=== PATIENT | male | born 1940 | race Caucasian/White ===

== ENCOUNTER 2018-09-17 17:56 | Inpatient (IN) | payer OTHER ==
[2018-09-17] MEDS ORDERED: FENTANYL CITR 100 MCG/2 ML ONE ×2 (19:02→21:42)
--- NOTE | 2018-09-17 19:51 | RAD REPORT ---
EXAM DESCRIPTION: CT - Head Brain Wo Cont - 09/17/2018 7:42 pm CLINICAL HISTORY: TRAUMA Fall, trauma, head injury COMPARISON: No comparisons TECHNIQUE: All CT scans are performed using dose optimization technique as appropriate and may inclu de automated exposure control or mA/KV adjustment according to patient size. FINDINGS: No intracranial hemorrhage, hydrocephalus or extra-axial fluid collection.No areas of brai n edema or evidence of midline shift. Mild mucopolypoid thickening of the right maxillary antrum. The paranasal sinuses and mastoids are ot herwise clear. The calvarium is intact. IMPRESSION: No acute intracranial abnormality.
--- NOTE | 2018-09-17 19:52 | RAD REPORT ---
EXAM DESCRIPTION: RAD - Wrist Right 3 View - 09/17/2018 7:41 pm CLINICAL HISTORY: PAIN Pain COMPARISON: No comparisons FINDINGS: Mildly impacted fracture is seen involving the distal radial metaphysis. Mildly comminuted distal ulnar fracture also seen. 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 No carpal dislocation seen.
--- NOTE | 2018-09-17 19:53 | RAD REPORT ---
EXAM DESCRIPTION: RAD - Hip Right 2 View - 09/17/2018 7:41 pm CLINICAL HISTORY: PAIN Fall, pain COMPARISON: No comparisons FINDINGS: Intratrochanteric fracture is seen of the proximal right femur. No dislocation evident. IMPRESSION: Right IT fracture.
--- NOTE | 2018-09-17 19:54 | RAD REPORT ---
EXAM DESCRIPTION: RAD - Knee Right 3 View - 09/17/2018 7:41 pm CLINICAL HISTORY: PAIN Fall, pain COMPARISON: No comparisons FINDINGS: Prominent osteoarthritis involves the medial joint compartment. No acute fracture or dislo cation seen. No suprapatellar joint effusion.
[2018-09-17 20:03] LABS: Absolute Lymphocytes (CBC) 1.1 K/uL (0.7-4.9); Absolute Monocytes 0.9 K/uL (0.1-1.3); Absolute Neutrophil 8.4 K/uL (1.8-8.0); Basophils % 0.4 % (0-1.3); Eosinophils % 0.9 % (0-4.4); Hematocrit 45.8 % (39.6-49.0); Lymphocytes % 10.4 % (15.3-44.8); MPV 8.3 fL (7.6-11.3); Monocytes % 8.3 % (3.3-12.3); RBC Red Blood Cell Count 5.28 M/uL (4.33-5.43)
[2018-09-17 20:20] LABS: Potassium 3.5 mmol/L (3.5-5.1)
--- NOTE | 2018-09-17 20:34 | ER ---
Nurse's Notes [facility] Name: Antonio Valdivia Age: 78 yrs Sex: Male : 1940 Arrival Date: 09/17/2018 Time: 17:57 Bed 4 Private MD: Diagnosis: Displaced intertrochanteric fracture of right femur;Displaced fracture of neck of right radius Presentation: 09/17 17:58 Presenting complaint: EMS states: fell from a standing position approximately 30 ss minutes prior to arrival. Pt c/o R wrist, R knee and R hip pain. Denies head injury. Care prior to arrival: None. Mechanism of Injury: Fall from standing position. Trauma event details: Injury occurred in the [facility], Injury occurred: at home. Injury occurred: September 17, 2018. 17:58 Acuity: ZURI 3 ss 17:58 Method Of Arrival: EMS: [facility] ss 18:00 Transition of care: patient was not received from another setting of care. Onset of ss symptoms was September 17, 2018. Risk Assessment: Do you want to hurt yourself or someone else? Patient reports no desire to harm self or others. Initial Sepsis Screen: Does the patient meet any 2 criteria? No. Patient's initial sepsis screen is negative. Does the patient have a suspected source of infection? No. Patient's initial sepsis screen is negative. Trauma Activation: Alert Physician: ED Physician; Name: ; Notified At: ; Arrived At: Physician: General Surgeon; Name: ; Notified At: ; Arrived At: Physician: Radiology; Name: ; Notified At: ; Arrived At: Physician: Respiratory; Name: ; Notified At: ; Arrived At: Physician: Lab; Name: ; Notified At: ; Arrived At: Historical: - Allergies: 18:02 No Known Allergies; ss - PMHx: 21:22 Hypertension; Atrial Fib; gs - Immunization history: Last tetanus immunization: unknown. - Social history:: Smoking status: Patient/guardian denies using tobacco. - Ebola Screening: : Patient denies exposure to infectious person Patient denies travel to an Ebola-affected area in the 21 days before illness onset. Screenin:58 Abuse screen: Denies threats or abuse. Denies injuries from another. Tuberculosis ss screening: No symptoms or risk factors identified. Never had TB. 18:06 Nutritional screening: No deficits noted. Fall Risk Secondary diagnosis (15 points) tw2 impaired mobility. Primary Survey: 17:58 NO uncontrolled hemorrhage observed. A: The patient is alert. Airway: patent. ss Breathing/Chest: Respiratory pattern: regular, Respiratory effort: spontaneous, unlabored. Circulation: Heart tones present. Pulses: palpable right radial artery, right posterior tibial artery, left radial artery and left posterior tibial artery. Skin color: pink, Skin temperature: warm. Disability Alert. Exposure/Environment: There is no evidence of uncontrolled external bleeding. 18:32 Reassessment Airway Airway Patent Oxygen No O2 Oral cavity Clear Breathing/Chest sv Respiratory pattern Regular Respiratory effort Spontaneous Unlabored Breath sounds Clear Chest inspection Symmetrical Circulation Heart tones Present Pulses Palpable Color Spelter Temperature Dry Cool Disability Alert. Secondary Survey: 18:10 HEENT: No deficits noted. Gastrointestinal: No deficits noted. : No deficits noted. sv No signs and/or symptoms were reported regarding the genitourinary system. Musculoskeletal: Range of motion: limited in right hip Tenderness present in right hip, right wrist and right knee. Assessment: 18:11 General: Appears in no apparent distress. uncomfortable, Behavior is calm, cooperative, sv appropriate for age. Neuro: Level of Consciousness is awake, alert, obeys commands, Oriented to person, place, time, situation. Cardiovascular: Heart tones S1 S2 present Patient's skin is warm and dry. Pulses are palpable in right brachial artery and left brachial artery. Respiratory: Airway is patent Respiratory effort is even, unlabored, Respiratory pattern is regular, symmetrical, Breath sounds are clear bilaterally. Musculoskeletal: Swelling present in right wrist. 19:59 Reassessment: Pt returned from CT. Pain: Complains of pain in right wrist and right hip ed1 Pain currently is 8 out of 10 on a pain scale. Quality of pain is described as aching, throbbing, Pain began 2 hours ago. Is continuous. Neuro: Level of Consciousness is awake, alert, obeys commands, Oriented to person, place, time, situation. Cardiovascular: Denies chest pain, Heart tones S1 S2 present. Respiratory: Airway is patent Respiratory effort is even, unlabored, Respiratory pattern is regular, symmetrical, Breath sounds are clear bilaterally. GI: Patient currently denies nausea. : No signs and/or symptoms were reported regarding the genitourinary system. EENT: No signs and/or symptoms were reported regarding the EENT system. Derm: Skin is intact, is healthy with good turgor, Skin is dry, Skin is normal, Skin temperature is warm. Musculoskeletal: Circulation, motion, and sensation intact. Swelling present in right wrist. 20:45 Reassessment: Patient appears in no apparent distress at this time. Patient and/or ed1 family updated on plan of care and expected duration. Pain level reassessed. Patient is alert, oriented x 3, equal unlabored respirations, skin warm/dry/pink. Patient states feeling better. Patient states symptoms have improved. 21:45 Reassessment: Patient appears in no apparent distress at this time. No changes from ed1 previously documented assessment. Patient and/or family updated on plan of care and expected duration. Pain level reassessed. Patient is alert, oriented x 3, equal unlabored respirations, skin warm/dry/pink. 22:36 Reassessment: Patient appears in no apparent distress at this time. Patient and/or ed1 family updated on plan of care and expected duration. Pain level reassessed. Patient is alert, oriented x 3, equal unlabored respirations, skin warm/dry/pink. Patient states feeling better. Patient states symptoms have improved. Vital Signs: 18:05 BP 139 / 95; Pulse 67; Resp 20; Pulse Ox 100% on R/A; Pain 8/10; tw2 18:09 Temp 97.1(A); sv 18:33 BP 183 / 88; Pulse 62; Resp 16; Temp 97.2; Pulse Ox 99% ; sv 19:59 BP 180 / 86; Pulse 65; Resp 16; Temp 98.0(O); Pulse Ox 99% on R/A; Pain 8/10; ed1 20:45 BP 173 / 69; Pulse 60; Resp 18; Temp 98.2(O); Pulse Ox 99% on R/A; Pain 6/10; ed1 21:45 BP 163 / 81; Pulse 59; Resp 18; Temp 98.5(O); Pulse Ox 100% on R/A; Pain 4/10; ed1 22:36 BP 182 / 98; Pulse 64; Resp 18; Temp 98.0(O); Pulse Ox 99% on R/A; Pain 4/10; ed1 Helen Coma Score: 17:58 Eye Response: spontaneous(4). Verbal Response: oriented(5). Motor Response: obeys ss commands(6). Total: 15. 18:33 Eye Response: spontaneous(4). Verbal Response: oriented(5). Motor Response: obeys sv commands(6). Total: 15. Trauma Score (Adult): 17:58 Eye Response: spontaneous(1); Verbal Response: oriented(1); Motor Response: obeys ss commands(2); Systolic BP: > 89 mm Hg(4); Respiratory Rate: 10 to 29 per min(4); [place] Score: 15; Trauma Score: 12 18:33 Eye Response: spontaneous(1); Verbal Response: oriented(1); Motor Response: obeys sv commands(2); Systolic BP: > 89 mm Hg(4); Respiratory Rate: 10 to 29 per min(4); [place] Score: 15; Trauma Score: 12 19:59 Eye Response: spontaneous(1); Verbal Response: oriented(1); Motor Response: obeys ed1 commands(2); Systolic BP: > 89 mm Hg(4); Respiratory Rate: 10 to 29 per min(4); [place] Score: 15; Trauma Score: 12 20:45 Eye Response: spontaneous(1); Verbal Response: oriented(1); Motor Response: obeys ed1 commands(2); Systolic BP: > 89 mm Hg(4); Respiratory Rate: 10 to 29 per min(4); [place] Score: 15; Trauma Score: 12 21:45 Eye Response: spontaneous(1); Verbal Response: oriented(1); Motor Response: obeys ed1 commands(2); Systolic BP: > 89 mm Hg(4); Respiratory Rate: 10 to 29 per min(4); [place] Score: 15; Trauma Score: 12 22:36 Eye Response: spontaneous(1); Verbal Response: oriented(1); Motor Response: obeys ed1 commands(2); Systolic BP: > 89 mm Hg(4); Respiratory Rate: 10 to 29 per min(4); [place] Score: 15; Trauma Score: 12 ED Course: 17:57 Patient arrived in ED. ss 17:58 Patient has correct armband on for positive identification. Bed in low position. Call ss light in reach. Patient maintains SpO2 saturation greater than 95% on room air. client care specialist on. Pulse ox on. NIBP on. 17:58 Patient maintains SpO2 saturation greater than 95% on room air. ss 17:59 Triage completed. ss 17:59 Blanca Sawyer RN is Primary Nurse. sv 18:02 Arm band placed on right wrist. ss 18:13 Awaiting ED provider evaluation. sv 18:13 Thermoregulation: warm blanket given to patient. sv 18:15 Hi Patel MD is Attending Physician. gs 19:04 Report given to Milagros BARRETT. sv 19:07 Primary Nurse role handed off by Blanca Sawyer RN sv 19:15 Milagros Mendoza RN is Primary Nurse. ed1 19:44 Hip Right 2 View XRAY In Process Unspecified. EDMS 19:44 Wrist Right 3 View XRAY In Process Unspecified. EDMS 19:44 Knee Right 3 View XRAY In Process Unspecified. EDMS 19:44 CT Head Brain wo Cont In Process Unspecified. EDMS 19:54 Inserted saline lock: 20 gauge in left antecubital area, using aseptic technique. ar5 20:32 Krzysztof Rene MD is Hospitalizing Provider. gs 22:38 No provider procedures requiring assistance completed. Patient admitted, IV remains in ed1 place. intact, No redness/swelling at site. Administered Medications: 20:01 Drug: fentaNYL (PF) 50 mcg Route: IVP; Site: left antecubital; ed1 20:30 Follow up: Response: No adverse reaction; Pain is unchanged, physician notified ed1 21:36 Drug: fentaNYL (PF) 50 mcg Route: IVP; Site: left antecubital; ed1 22:00 Follow up: Response: No adverse reaction; Pain is decreased ed1 Intake: 18:13 PO: 0ml; Total: 0ml. sv 19:59 PO: 0ml; Total: 0ml. ed1 20:45 PO: 0ml; Total: 0ml. ed1 21:45 PO: 0ml; Total: 0ml. ed1 22:36 PO: 0ml; Total: 0ml. ed1 Output: 18:13 Urine: 0ml; Total: 0ml. sv 19:59 Urine: 0ml; Total: 0ml. ed1 20:45 Urine: 240ml (Voided); Total: 240ml. ed1 21:45 Urine: 0ml; Total: 240ml. ed1 22:36 Urine: 240ml (Voided); Total: 480ml. ed1 Outcome: 20:34 Decision to Hospitalize by Provider. 23:15 Admitted to Med/surg accompanied by tech, via wheelchair, room 203, Report called to ed1 NENA Barton 23:15 Condition: stable 23:15 Patient's length of stay in the Emergency Department was greater than 2 hours. 23:38 Patient left the ED. ed1 Signatures: Dispatcher [employer] EDBlanca Medina RN RN Jennifer Abad RN RN ss Riggs, Erika, RN RN ed1 Charlotte Silverman RN RN tw2 Hi Patel MD MD gs Robles, Autumn ar5 Corrections: (The following items were deleted from the chart) 18:06 18:05 BP 155 / 117; Pulse 75bpm; Resp 23bpm; Pulse Ox 100% RA; tw2 tw2 22:35 20:45 BP 173 / 69; Pulse 60bpm; Resp 18bpm; Pulse Ox 99% RA; Pain 6/10; ed1 ed1
--- NOTE | 2018-09-17 20:35 | EDPHYS ---
Physician Documentation [facility] Name: Antonio Valdivia Age: 78 yrs Sex: Male : 1940 Arrival Date: 09/17/2018 Time: 17:57 Bed 4 Private MD: ED Physician Hi Patel HPI: 09/17 21:21 This 78 yrs old Male presents to ER via EMS with complaints of Fall Injury. gs 21:21 Details of fall: The patient fell from an upright position. Onset: The symptoms/episode gs began/occurred acutely, just prior to arrival. Associated injuries: The patient sustained injury to the head, contusion, right hip and right knee, right wrist. Severity of symptoms: At their worst the symptoms were moderate, in the emergency department the symptoms are unchanged. The patient has not experienced similar symptoms in the past. The patient has not recently seen a physician. Historical: - Allergies: 18:02 No Known Allergies; ss - PMHx: 21:22 Hypertension; Atrial Fib; gs - Immunization history: Last tetanus immunization: unknown. - Social history:: Smoking status: Patient/guardian denies using tobacco. - Ebola Screening: : Patient denies exposure to infectious person Patient denies travel to an Ebola-affected area in the 21 days before illness onset. ROS: 21:22 All other systems are negative. gs Exam: 21:22 Head/Face: Normocephalic, atraumatic. Eyes: Pupils equal round and reactive to light, gs extra-ocular motions intact. Lids and lashes normal. Conjunctiva and sclera are non-icteric and not injected. Cornea within normal limits. Periorbital areas with no swelling, redness, or edema. ENT: Nares patent. No nasal discharge, no septal abnormalities noted. Tympanic membranes are normal and external auditory canals are clear. Oropharynx with no redness, swelling, or masses, exudates, or evidence of obstruction, uvula midline. Mucous membranes moist. Neck: Trachea midline, no thyromegaly or masses palpated, and no cervical lymphadenopathy. Supple, full range of motion without nuchal rigidity, or vertebral point tenderness. No Meningismus. Chest/axilla: Normal chest wall appearance and motion. Nontender with no deformity. No lesions are appreciated. Cardiovascular: Regular rate and rhythm with a normal S1 and S2. No gallops, murmurs, or rubs. Normal PMI, no JVD. No pulse deficits. Respiratory: Lungs have equal breath sounds bilaterally, clear to auscultation and percussion. No rales, rhonchi or wheezes noted. No increased work of breathing, no retractions or nasal flaring. Abdomen/GI: Soft, non-tender, with normal bowel sounds. No distension or tympany. No guarding or rebound. No evidence of tenderness throughout. Back: No spinal tenderness. No costovertebral tenderness. Full range of motion. Skin: Warm, dry with normal turgor. Normal color with no rashes, no lesions, and no evidence of cellulitis. Neuro: Awake and alert, GCS 15, oriented to person, place, time, and situation. Cranial nerves II-XII grossly intact. Motor strength 5/5 in all extremities. Sensory grossly intact. Cerebellar exam normal. Normal gait. 21:22 Constitutional: The patient appears alert, awake, in obvious distress, severely distressed. 21:22 Musculoskeletal/extremity: Extremities: noted in the right wrist: deformity, pain, swelling, tenderness, noted in the right hip: swelling, tenderness, ROM: limited active range of motion due to pain, limited passive range of motion due to pain, Circulation is intact in all extremities. Sensation intact. Joints: the right hip displays painful range of motion, swelling, tenderness. Vital Signs: 18:05 BP 139 / 95; Pulse 67; Resp 20; Pulse Ox 100% on R/A; Pain 8/10; tw2 18:09 Temp 97.1(A); sv 18:33 BP 183 / 88; Pulse 62; Resp 16; Temp 97.2; Pulse Ox 99% ; sv 19:59 BP 180 / 86; Pulse 65; Resp 16; Temp 98.0(O); Pulse Ox 99% on R/A; Pain 8/10; ed1 20:45 BP 173 / 69; Pulse 60; Resp 18; Temp 98.2(O); Pulse Ox 99% on R/A; Pain 6/10; ed1 21:45 BP 163 / 81; Pulse 59; Resp 18; Temp 98.5(O); Pulse Ox 100% on R/A; Pain 4/10; ed1 22:36 BP 182 / 98; Pulse 64; Resp 18; Temp 98.0(O); Pulse Ox 99% on R/A; Pain 4/10; ed1 [place] Coma Score: 17:58 Eye Response: spontaneous(4). Verbal Response: oriented(5). Motor Response: obeys ss commands(6). Total: 15. 18:33 Eye Response: spontaneous(4). Verbal Response: oriented(5). Motor Response: obeys sv commands(6). Total: 15. Trauma Score (Adult): 17:58 Eye Response: spontaneous(1); Verbal Response: oriented(1); Motor Response: obeys ss commands(2); Systolic BP: > 89 mm Hg(4); Respiratory Rate: 10 to 29 per min(4); [place] Score: 15; Trauma Score: 12 18:33 Eye Response: spontaneous(1); Verbal Response: oriented(1); Motor Response: obeys sv commands(2); Systolic BP: > 89 mm Hg(4); Respiratory Rate: 10 to 29 per min(4); [place] Score: 15; Trauma Score: 12 19:59 Eye Response: spontaneous(1); Verbal Response: oriented(1); Motor Response: obeys ed1 commands(2); Systolic BP: > 89 mm Hg(4); Respiratory Rate: 10 to 29 per min(4); [place] Score: 15; Trauma Score: 12 20:45 Eye Response: spontaneous(1); Verbal Response: oriented(1); Motor Response: obeys ed1 commands(2); Systolic BP: > 89 mm Hg(4); Respiratory Rate: 10 to 29 per min(4); [place] Score: 15; Trauma Score: 12 21:45 Eye Response: spontaneous(1); Verbal Response: oriented(1); Motor Response: obeys ed1 commands(2); Systolic BP: > 89 mm Hg(4); Respiratory Rate: 10 to 29 per min(4); [place] Score: 15; Trauma Score: 12 22:36 Eye Response: spontaneous(1); Verbal Response: oriented(1); Motor Response: obeys ed1 commands(2); Systolic BP: > 89 mm Hg(4); Respiratory Rate: 10 to 29 per min(4); Helen Score: 15; Trauma Score: 12 MDM: 18:35 Patient medically screened. gs 21:22 Differential diagnosis: closed head injury, fracture, multiple trauma, sprain. Data gs reviewed: vital signs, nurses notes, lab test result(s), radiologic studies. Counseling: I had a detailed discussion with the patient and/or guardian regarding: the historical points, exam findings, and any diagnostic results supporting the discharge/admit diagnosis, the need for further work-up and treatment in the hospital. Response to treatment: the patient's symptoms have mildly improved after treatment, and as a result, I will admit patient. 09/17 18:35 Order name: CBC with Diff 09/17 18:35 Order name: Basic Metabolic Panel 09/17 20:32 Order name: PT-INR 09/17 21:34 Order name: Basic Metabolic Panel EDMS 09/17 21:34 Order name: Basic Metabolic Panel EDMS 09/17 21:34 Order name: CBC with Automated Diff EDMS 09/17 18:09 Order name: Hip Right 2 View XRAY; Complete Time: 20:19 sv 09/17 18:09 Order name: Wrist Right 3 View XRAY; Complete Time: 20:19 sv 09/17 18:09 Order name: Knee Right 3 View XRAY; Complete Time: 20:19 sv 09/17 18:35 Order name: CT Head Brain wo Cont; Complete Time: 20:19 gs 09/17 20:32 Order name: XRAY CXR (1 view) 09/17 21:34 Order name: CBC with Automated Diff EDMS 09/17 20:22 Order name: Splint - Volar Wrist Splint: R WRIST; Complete Time: 22:16 09/17 20:32 Order name: EKG - Nurse/Tech; Complete Time: 21:34 09/17 21:34 Order name: CONS Physician Consult EDMD 09/17 21:34 Order name: NPO EDMD Administered Medications: 20:01 Drug: fentaNYL (PF) 50 mcg Route: IVP; Site: left antecubital; ed1 20:30 Follow up: Response: No adverse reaction; Pain is unchanged, physician notified ed1 21:36 Drug: fentaNYL (PF) 50 mcg Route: IVP; Site: left antecubital; ed1 22:00 Follow up: Response: No adverse reaction; Pain is decreased ed1 Disposition: 09/17/18 20:34 Hospitalization ordered by Krzysztof Rene for Inpatient Admission. Preliminary diagnosis are Displaced intertrochanteric fracture of right femur, Displaced fracture of neck of right radius. - Bed requested for Telemetry/MedSurg (Inpatient). - Status is Inpatient Admission. ed1 - Condition is Stable. - Problem is new. - Symptoms have improved. UTI on Admission? No Signatures: Dispatcher [employer] EDMD Nova Lackey RN RN Maria Alejandra Su RN RN [facility] BransonJennifer RN RN Milagros Mendoza RN RN ed1 Hi Patel MD MD Corrections: (The following items were deleted from the chart) 20:38 20:34 Hospitalization Ordered by Krzysztof Rene MD for Inpatient Admission. Preliminary fc diagnosis is Displaced intertrochanteric fracture of right femur; Displaced fracture of neck of right radius. Bed requested for Telemetry/MedSurg (Inpatient). Status is Inpatient Admission. Condition is Stable. Problem is new. Symptoms have improved. UTI on Admission? No. 20:44 20:38 09/17/2018 20:34 Hospitalization Ordered by Krzysztof Rene MD for Inpatient fc Admission. Preliminary diagnosis is Displaced intertrochanteric fracture of right femur; Displaced fracture of neck of right radius. Bed requested for Telemetry/MedSurg (Inpatient). Status is Inpatient Admission. Condition is Stable. Problem is new. Symptoms have improved. UTI on Admission? No. 21:47 20:44 09/17/2018 20:34 Hospitalization Ordered by Krzysztof Reen MD for Inpatient mw Admission. Preliminary diagnosis is Displaced intertrochanteric fracture of right femur; Displaced fracture of neck of right radius. Bed requested for Telemetry/MedSurg (Inpatient). Status is Inpatient Admission. Condition is Stable. Problem is new. Symptoms have improved. UTI on Admission? No. 23:38 21:47 09/17/2018 20:34 Hospitalization Ordered by Krzysztof Rene MD for Inpatient ed1 Admission. Preliminary diagnosis is Displaced intertrochanteric fracture of right femur; Displaced fracture of neck of right radius. Bed requested for Telemetry/MedSurg (Inpatient). Status is Inpatient Admission. Condition is Stable. Problem is new. Symptoms have improved. UTI on Admission? No. mw
[2018-09-17] MEDS ORDERED: ONDANSETRON 4 MG/2 ML VIAL IV PRN (21:30)
[2018-09-17] MEDS ORDERED: ACETAMINOPHEN 500 MG TAB PO PRN (21:30)
[2018-09-17 21:45] LABS: Protime INR 1.26
--- NOTE | 2018-09-17 22:01 | P.HP ---
Certification for Inpatient Patient admitted to: Inpatient With expected LOS: >2 Midnights Practitioner: I am a practitioner with admitting privileges, knowledge of patient current condition, hospital course, and medical plan of care. Services: Services provided to patient in accordance with Admission requirements found in Title 42 Section 412.3 of the Code of Federal Regulations Patient History Date of Service: 09/17/18 Reason for admission: right hip and right wrist fracture History of Present Illness: Mr Valdivia is an 78 years old male with history of HTN, Dyslipidemia, chronic A.Fib, recently started on xarelto, who unfortunately fell this afternoon, landing ton his right side. Immediately, he was unable to bear weight on his right leg, he also has severe pain not only in his right hip but his right arm. He stated that tripped. The patient denied dizziness, palpitation or chest pain prior the fall. XR right hip shows intertrochanteric fracture, XR right wrist reports radial and ulnar fracture. Home medications list reviewed: Yes - Past Medical/Surgical History -: HTN -: dyslipidemia Past Surgical History: Reviewed- Non-Contributory - Family History Family History: Reviewed- Non-Contributory - Social History Smoking Status: Former smoker CD- Drugs: No Place of Residence: Home Review of Systems 10-point ROS is otherwise unremarkable Physical Examination - Physical Exam General: Alert, In no apparent distress HEENT: Atraumatic, PERRLA, Mucous membr. moist/pink, EOMI, Sclerae nonicteric Neck: Supple, 2+ carotid pulse no bruit, No LAD, Without JVD or thyroid abnormality Respiratory: Clear to auscultation bilaterally, Normal air movement Cardiovascular: Normal S1 S2, Irregular heart rate/rhythm Gastrointestinal: Normal bowel sounds, No tenderness Musculoskeletal: Tenderness (right hip and right wrist pain) Integumentary: No rashes Neurological: Normal speech, Normal strength at 5/5 x4 extr, Normal tone, Normal affect Lymphatics: No axilla or inguinal lymphadenopathy - Studies Laboratory Data (last 24 hrs) 09/17/18 21:22: PT 14.7 H, INR 1.26 09/17/18 19:54: Sodium 141, Potassium 3.5, BUN 17, Creatinine 1.02, Glucose 110 H 09/17/18 19:54: WBC 10.6, Hgb 15.4, Hct 45.8, Plt Count 168 Assessment and Plan - Problems (Diagnosis) (1) Closed right hip fracture Current Visit: Yes Status: Acute Qualifiers: Encounter type: initial encounter Qualified Code(s): S72.001A - Fracture of unspecified part of neck of right femur, initial encounter for closed fracture (2) Right wrist fracture Current Visit: Yes Status: Acute Qualifiers: Encounter type: initial encounter Fracture type: closed Qualified Code(s) : S62.101A - Fracture of unspecified carpal bone, right wrist, initial encounter for closed fracture (3) HTN (hypertension) Current Visit: Yes Status: Acute Qualifiers: Hypertension type: essential hypertension Qualified Code(s): I10 - Essential (primary) hypertension (4) Chronic a-fib Current Visit: Yes Status: Acute (5) Dyslipidemia Current Visit: Yes Status: Acute - Plan Will admit the patient due to right hip and wrist fracture. Will hold anticoagulation. Dr Carter consulted. Continue symptomatic medication. - Advance Directives Does patient have a Living Will: No Does patient have a Durable POA for Healthcare: No - Code Status/Comfort Care Code Status Assessed: Yes Code Status: Full Code
[2018-09-18 02:04] LABS: Urine Appearance CLEAR; Urine Bilirubin NEGATIVE (NEG); Urine Blood NEGATIVE (NEG); Urine Color YELLOW; Urine Glucose NEGATIVE (NEG); Urine Protein NEGATIVE (NEG); Urine Specific Gravity 1.015 (1.005-1.030)
[2018-09-18 02:16] LABS: Urine Microscopic Reflex NO UMIC
[2018-09-18] MEDS ORDERED: PNEUMOCOCCAL VACCINE 0.5 ML IMVAC ONE (06:00)
[2018-09-18 06:14] LABS: Absolute Lymphocytes (CBC) 0.8 K/uL (0.7-4.9); Absolute Monocytes 0.9 K/uL (0.1-1.3); Absolute Neutrophil 7.6 K/uL (1.8-8.0); Basophils % 0.4 % (0-1.3); Eosinophils % 0.1 % (0-4.4); Hematocrit 40.7 % (39.6-49.0); Lymphocytes % 8.2 % (15.3-44.8); MPV 8.9 fL (7.6-11.3); Monocytes % 9.9 % (3.3-12.3); RBC Red Blood Cell Count 4.74 M/uL (4.33-5.43)
[2018-09-18 06:25] LABS: BUN Blood Urea Nitrogen 14 mg/dL (7-18); Bicarbonate 24 mmol/L (21-32); Glucose Level 134 mg/dL (74-106); Magnesium 1.8 mg/dL (1.8-2.4); Sodium Level 140 mmol/L (136-145)
[2018-09-18] MEDS ORDERED: MAGNESIUM SULFATE 1 gm IVPB 1 GM/100 ML BAG IV ONE (07:00)
[2018-09-18] MEDS: NA CHLORIDE 0.9% 1,000 ML IV SCH ×4 (08:00→17:50)
--- NOTE | 2018-09-18 08:09 | RAD REPORT ---
EXAM DESCRIPTION: RAD - Chest Single View - 09/17/2018 10:31 pm CLINICAL HISTORY: PREOP Chest pain. COMPARISON: CHEST SINGLE VIEW dated 01/30/2010; CHEST PA AND LAT 2 VIEW dated 05/29/2008; CHEST PA AND LAT 2 VIEW dated 02/22/2000 FINDINGS: Portable technique limits examination quality. Emphysematous changes are present throughout the lungs. No focal infiltrate seen. The heart is mildly enlarged in size. No displaced fractures. IMPRESSION: COPD.
--- NOTE | 2018-09-18 08:48 | EKG ---
Test Date: 2018-09-17 Test Time: 21:21:13 Rotary Soil Stabilizer: SHELIA MEASUREMENT RESULTS: Intervals: Rate: 49 W[place]: 150 QRSD: 182 QT: 506 QTc: 457 [place]: P: 44 W[place]: 150 QRS: 63 T: 109 INTERPRETIVE STATEMENTS: Sinus bradycardia Left bundle branch block Abnormal ECG Compared to ECG 01/30/2010 16:25:58 Left bundle-branch block now present Electronically Signed On 09-18-18 08:46:04 COMMUNITY HEALTH COORDINATOR by Manjinder Chadwick
--- NOTE | 2018-09-18 09:26 | P.PN ---
Subjective Date of Service: 09/18/18 Primary Care Provider: Dr. Stern; Cardiology-Dr. Chadwick Chief Complaint: right hip and right wrist fracture Subjective: Other (Patient doing well. Pain well controlled.) Physical Examination - Vital Signs Temperature: 98.3 F Blood Pressure: 138/78 Pulse: 62 Respirations: 18 Pulse Ox (%): 93 - Physical Exam General: Alert, In no apparent distress, Oriented x3, Cooperative HEENT: Atraumatic Neck: Supple Respiratory: Clear to auscultation bilaterally, Normal air movement Cardiovascular: Irregular heart rate/rhythm (Atrial fibrillation, rate controlled) Gastrointestinal: Normal bowel sounds, Soft and benign, Non-distended, No tenderness, No masses, No rebound, No guarding Musculoskeletal: Other (Splint to the right upper extremity.) Integumentary: No tenderness/swelling, No erythema, No warmth, No cyanosis Neurological: Normal speech, Normal strength at 5/5 x4 extr, Normal tone, Normal affect - Studies Laboratory Data (last 24 hrs) 09/17/18 21:22: PT 14.7 H, INR 1.26 09/17/18 19:54: Sodium 141, Potassium 3.5, BUN 17, Creatinine 1.02, Glucose 110 H 09/17/18 19:54: WBC 10.6, Hgb 15.4, Hct 45.8, Plt Count 168 Medications List Reviewed: Yes Assessment & Plan Discharge Plan: Home Plan to discharge in: Greater than 2 days Physician Review Additional Text: Impression: Mechanical fall leading to right intertrochanteric proximal hip fracture along with right impacted fracture involving the distal radial metaphysis and mild comminuted distal ulnar fracture Chronic atrial fibrillation on chronic anti coalition therapy Hypertension Hyperlipidemia Plan: Mechanical fall leading to right intertrochanteric proximal hip fracture along with right impacted fracture involving the distal radial metaphysis and mild comminuted distal ulnar fracture: Orthopedics has been consulted. Cardiology consulted for cardiac clearance. Patient with history of hypertension and chronic atrial fibrillation. Last Xarelto taken at 5:00 p.m. on Monday. Patient likely low risk for surgery. Anticipate surgery today. Patient remains NPO. Anticipate a good recovery after surgery. Patient will likely require outpatient physical therapy at discharge. Chronic atrial fibrillation on chronic anti coagulation therapy: Xarelto last taken at 5:00 p.m. on Monday. Continue to hold anti coagulation therapy in preparation for surgery. Xarelto will need to be restarted after surgery. Hypertension: Will provide medication IV. Once able to take oral intake then can restart home medication. Hyperlipidemia: Once able to take oral intake then can restart Time Spent Managing Pts Care (In Minutes): 55
[2018-09-18] MEDS: MORPHINE 2 MG/ML SYR IV PRN (09:29)
--- NOTE | 2018-09-18 10:40 | ECHO ---
HEIGHT: 5 ft 11 in WEIGHT: 170 lb 0 oz DATE OF STUDY: 09/18/[address]: Kian Villa DO 2-DIMENSIONAL: YES M.MODE: YES DOPPLER: YES COLOR FLOW: YES TDS: NO PORTABLE: NO DEFINITY: NO BUBBLE STUDY: NO DIAGNOSIS: CHRONIC ATRIAL FIBRILLATION CARDIAC HISTORY: CATHERIZATION: NO SURGERY: NO PROSTHETIC VALVE: NO PACEMAKER: NO MEASUREMENTS (cm) DIASTOLIC (NORMALS) SYSTOLIC (NORMALS) IVSd 1.2 (0.6-1.2) LA Diam 4.5 (1.9-4.0) LVEF 67% LVIDd 4.1 (3.5-5.7) LVIDs 2.6 (2.0-3.5) %FS 36% LVPWd 1.3 (0.6-1.2) Ao Diam 3.3 (2.0-3.7) 2 DIMENSIONAL ASSESSMENT: RIGHT ATRIUM: NORMAL LEFT ATRIUM: DILATED RIGHT VENTRICLE: NORMAL LEFT VENTRICLE: NORMAL TRICUSPID VALVE: NORMAL MITRAL VALVE: MITRAL ANNULAR CALCIFICATION PULMONIC VALVE: NORMAL AORTIC VALVE: SCLEROSIS PERICARDIAL EFFUSION: NONE AORTIC ROOT: NORMAL LEFT VENTRICULAR WALL MOTION: NORMAL. DOPPLER/COLOR FLOW: MILD TRICUSPID REGURGITATION- MILD PULMONARY HYPERTENSION. COMMENTS: NORMAL LEFT VENTRICULAR SIZE AND FUNCTION- EJECTION FRACTION 67%. ATRIAL FIBRILLATION. LEFT ATRIUM ENLARGEMENT- NO THROMBUS. MITRAL ANNULAR CALCIFICATION. AORTIC SCLEROSIS. MILD PULMONARY HYPERTENSION. RIGHT VENTRICULAR SYSTOLIC PRESSURE 43 MMHG. TECHNOLOGIST: EMMIE CACERES RD
[2018-09-18] MEDS ORDERED: Ringers Lactate 1,000 ML IV ONE (11:23)
[2018-09-18] MEDS ORDERED: PROPOFOL 200 MG/20 ML VIAL IV ONE (11:58)
[2018-09-18] MEDS ORDERED: FENTANYL CITR 100 MCG/2 ML ONE ×2 (11:59→13:32)
[2018-09-18] MEDS ORDERED: LIDOCAINE 1% MPF 5 ML VIAL ONE (11:59)
[2018-09-18] MEDS: BUPIVACA 0.5%/EPI 0.0005%/PF 10 ML VIAL ONE ×5 (12:28→14:00)
[2018-09-18] MEDS ORDERED: CEFAZOLIN SODIUM 1 GM/VIAL ONE (12:41)
[2018-09-18] MEDS ORDERED: TRANEXAMIC ACID 1,000 MG in NA CHLORIDE 0.9% 50 ML IV ONE (13:00)
[2018-09-18] MEDS ORDERED: NS 0.9% VIAL 10 ML ONE (13:52)
[2018-09-18] MEDS ORDERED: EPHEDRINE SULF 50 MG/ML VIAL ONE (13:52)
[2018-09-18] MEDS ORDERED: KETOROLAC 30 MG/ML INJ ONE (14:17)
[2018-09-18] MEDS ORDERED: ONDANSETRON 4 MG/2 ML VIAL ONE (14:17)
--- NOTE | 2018-09-18 14:47 | RAD REPORT ---
EXAM DESCRIPTION: RAD - Wrist Right 2 View - 09/18/2018 2:34 pm CLINICAL HISTORY: CLOSED REDUCTION IN OR 5 Pain COMPARISON: Wrist Right 3 View dated 09/17/2018 FINDINGS: Fluoroscopic imaging close reduction of right wrist fracture is submitted. Details of the procedure not available. Total fluoro time 0.1 minutes.
--- NOTE | 2018-09-18 14:48 | RAD REPORT ---
EXAM DESCRIPTION: RAD - Hip In Or - 09/18/2018 2:34 pm CLINICAL HISTORY: RT IM NAIL IN OR 5 COMPARISON: No comparisons FINDINGS: Fluoroscopic imaging reduction of the right hip fracture is submitted. Details of the proc edure not available. Total fluoro time 1.2 minutes.
--- NOTE | 2018-09-18 14:58 | P.OP ---
Pug Mill Operator: Corine Soto (gave necessary 1st assist services throughout case) Preoperative diagnosis: Intertrochanteric fracture right hip; Fracture right distal radius & ulna Postoperative diagnosis: same Primary procedure: IM nail fixation R hip intertroch fx;Closed red.long arm cast R wrist Anesthesia: general Estimated blood loss: 75 mL Specimen: none Implants: Affixus [id number];Lag10.5x105;AR80mm;distal 5.0x36mm Fluids & blood products: 20 mL 0.5% Marcaine w/EPI Transferred to: Recovery Room Condition: Good
[2018-09-18] MEDS ORDERED: DOCUSATE NA 100 MG CAP PO PRN (15:22)
[2018-09-18] MEDS ORDERED: MAGNESIUM HYDROXIDE 8% 30 ML PO PRN (15:22)
[2018-09-18] MEDS ORDERED: RIVAROXABAN 10 MG TABLET PO SCH (15:45)
[2018-09-18] MEDS: CEFAZOLIN/SWI 1gm 1 GM/10 ML SYR IVP SCH ×2 (17:52→23:59)
--- NOTE | 2018-09-18 22:25 | CON ---
Date of Consultation: 09/18/2018 Reason For Consultation: Cardiac clearance for hip surgery. History Of Present Illness: Mr. Valdivia is an 78-year-old white male. He has a history of chronic at rial fibrillation and hypertension. He takes Bystolic and Xarelto. He also takes Crestor for dyslip idemia. No other cardiac history. No history of CAD or CABG or congestive heart failure. Came in w ith a hip fracture after a fall. Plan for surgery today as soon by Dr. Carter. Xarelto has been hel d. He took his last dose on Monday. An echocardiogram, which was done today showed mild pulmonary h ypertension with a normal ejection fraction and no thrombus. The patient denied any cardiac symptoms . He denied any syncope. Past Medical History: As stated above. Allergies: NONE. Review of Systems: Negative. Social History: Negative. Family History: Negative. Medications: Listed earlier. Physical Examination: Vital Signs: Stable. He was in atrial fibrillation with a rate in the 80s. Afebrile. HEENT: Negative. Neck: Supple without any bruit, lymphadenopathy, JVD, or thyromegaly. Chest: Clear to auscultation and percussion. Cardiac: Revealed atrial fibrillation, tricuspid regurgitation, murmurs. No gallops or rubs. Abdomen: Benign. Extremities: Revealed no clubbing, cyanosis, or edema. Neurologic: He was intact. Pulses were present distally bilaterally. Diagnostic Data: Except for the hip fracture were pretty normal. His atrial fibrillation is chronic . Impression And Plan: 1.The patient with chronic atrial fibrillation, rate in the 80s, asymptomatic. No other cardiac his tory. Echocardiogram showed normal EF, mild pulmonary hypertension. He has been off Xarelto since S . He is cleared for surgery from my standpoint, and I will be available for questions if the ne ed arises. 2.Hypertension, well controlled. 3.Dyslipidemia, well controlled. NB/MODL Voice ID: [id number] Report ID: [id number]
[2018-09-19] MEDS: NA CHLORIDE 0.9% 1,000 ML IV SCH (05:42)
[2018-09-19 05:55] LABS: Absolute Lymphocytes (CBC) 0.8 K/uL (0.7-4.9); Absolute Neutrophil 6.9 K/uL (1.8-8.0); Basophils % 0.5 % (0-1.3); Hematocrit 38.5 % (39.6-49.0); Lymphocytes % 9.5 % (15.3-44.8); MPV 8.6 fL (7.6-11.3); Monocytes % 11.4 % (3.3-12.3); RBC Red Blood Cell Count 4.47 M/uL (4.33-5.43)
[2018-09-19 06:11] LABS: BUN Blood Urea Nitrogen 14 mg/dL (7-18); Bicarbonate 23 mmol/L (21-32); Glucose Level 113 mg/dL (74-106); Magnesium 2.1 mg/dL (1.8-2.4); Potassium 4.4 mmol/L (3.5-5.1); Sodium Level 141 mmol/L (136-145)
[2018-09-19] MEDS ORDERED: TRAMADOL HCL 50 MG TAB PO PRN (07:51)
[2018-09-19] MEDS: ROSUVASTATIN 10 MG TAB PO SCH (08:33)
[2018-09-19] MEDS: NEBIVOLOL HCL 20 MG TABLET PO SCH (08:34)
[2018-09-19] MEDS: HYDROCODONE/APAP 7.5/325 MG TAB PO PRN ×2 (08:34→16:48)
[2018-09-19] MEDS: ASCORBIC ACID 500 MG TABLET PO SCH (08:34)
[2018-09-19] MEDS ORDERED: RIVAROXABAN 20 MG TABLET PO SCH (09:00)
[2018-09-19] MEDS: MORPHINE 2 MG/ML SYR IV PRN (12:07)
--- NOTE | 2018-09-19 16:01 | P.PN ---
Subjective Date of Service: 09/19/18 Primary Care Provider: Dr. Stern; Cardiology-Dr. Chadwick Chief Complaint: right hip and right wrist fracture Subjective: Improving, Doing well Physical Examination - Vital Signs Temperature: 97.7 F Blood Pressure: 143/66 Pulse: 60 Respirations: 14 Pulse Ox (%): 95 - Physical Exam General: Alert, In no apparent distress, Oriented x3, Cooperative HEENT: Atraumatic Neck: Supple Respiratory: Clear to auscultation bilaterally, Normal air movement Cardiovascular: Irregular heart rate/rhythm (Atrial fibrillation, rate controlled) Gastrointestinal: Normal bowel sounds, Soft and benign, Non-distended, No tenderness, No masses, No rebound, No guarding Integumentary: Other (Right upper extremity in cast.) Neurological: Normal speech, Normal strength at 5/5 x4 extr, Normal tone, Normal affect - Studies Medications List Reviewed: Yes Assessment & Plan Discharge Plan: Home Plan to discharge in: 48 Hours Physician Review Additional Text: Impression: Mechanical fall leading to right intertrochanteric proximal hip fracture along with right impacted fracture involving the distal radial metaphysis and mild comminuted distal ulnar fracture Chronic atrial fibrillation on chronic anti coalition therapy Hypertension Hyperlipidemia Plan: Mechanical fall leading to right intertrochanteric proximal hip fracture along with right impacted fracture involving the distal radial metaphysis and mild comminuted distal ulnar fracture status post repair of hip fracture and cast to the right upper extremity: Patient has done well postoperatively. Will restart his Xarelto. Physical therapy to be initiated. Continue with incentive spirometer. Will provide options for pain control. Anticipate discharge in the next 1-2 days with likely improvement. Patient will likely require outpatient physical therapy at discharge. Chronic atrial fibrillation on chronic anti coagulation therapy: Restart home medication. Hypertension: Restart home medication Hyperlipidemia: Restart home medication Time Spent Managing Pts Care (In Minutes): 55
[2018-09-19] MEDS: RIVAROXABAN 20 MG TABLET PO SCH (16:48)
[2018-09-20 06:26] LABS: Absolute Neutrophil 5.9 K/uL (1.8-8.0); Basophils % 0.6 % (0-1.3); Eosinophils % 3.1 % (0-4.4); Lymphocytes % 12.3 % (15.3-44.8); MPV 8.6 fL (7.6-11.3); Monocytes % 12.6 % (3.3-12.3); RBC Red Blood Cell Count 4.21 M/uL (4.33-5.43)
[2018-09-20 06:30] LABS: BUN Blood Urea Nitrogen 18 mg/dL (7-18); Bicarbonate 27 mmol/L (21-32); Glucose Level 104 mg/dL (74-106); Magnesium 2.2 mg/dL (1.8-2.4); Potassium 4.3 mmol/L (3.5-5.1); Sodium Level 140 mmol/L (136-145)
--- NOTE | 2018-09-20 07:19 | P.PN ---
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 The long arm cast is elevated on pillows in finger range of motion is good. O: Vital signs and hemoglobin are stable. The right hip and ridge is clean dry and intact. Neurovascular exam is intact for right lower extremity and right upper extremities. Physical therapy effort was pending, but review of later Notes showed patient was able to do 60 feet with a walker. A: Patient is making excellent progress for the first postoperative day. P: Continue mobilization as tolerated. Discussed transition to outpatient care with Dr Villa.
[2018-09-20] MEDS ORDERED: ZOLPIDEM TARTRATE 5 MG TABLET PO PRN (07:51)
[2018-09-20] MEDS ORDERED: LACTULOSE 20 GM/30 ML UCUP PO PRN (07:54)
[2018-09-20] MEDS: DOCUSATE NA 100 MG CAP PO SCH (09:09)
[2018-09-20] MEDS: ASCORBIC ACID 500 MG TABLET PO SCH (09:16)
[2018-09-20] MEDS: NEBIVOLOL HCL 20 MG TABLET PO SCH (09:16)
--- NOTE | 2018-09-20 11:43 | P.PN ---
Subjective Date of Service: 09/20/18 Primary Care Provider: Dr. Stern; Cardiology-Dr. Chadwick Chief Complaint: right hip and right wrist fracture Subjective: Improving (Patient is slowly improving. Patient desires inpatient rehab.) Physical Examination - Vital Signs Temperature: 98.6 F Blood Pressure: 163/67 Pulse: 61 Respirations: 14 Pulse Ox (%): 97 - Physical Exam General: Alert, In no apparent distress, Oriented x3, Cooperative HEENT: Atraumatic Neck: Supple Respiratory: Clear to auscultation bilaterally, Normal air movement Cardiovascular: Irregular heart rate/rhythm (Atrial fibrillation, rate controlled) Gastrointestinal: Normal bowel sounds, Soft and benign, Non-distended, No tenderness, No masses, No rebound, No guarding Musculoskeletal: No erythema, No tenderness, No warmth Integumentary: No tenderness/swelling, No erythema, No warmth, No cyanosis Neurological: Normal speech, Normal strength at 5/5 x4 extr, Normal tone, Normal affect - Studies Medications List Reviewed: Yes Assessment & Plan Discharge Plan: Other (Inpatient rehab) Plan to discharge in: 24 Hours Physician Review Additional Text: Impression: Mechanical fall leading to right intertrochanteric proximal hip fracture along with right impacted fracture involving the distal radial metaphysis and mild comminuted distal ulnar fracture Chronic atrial fibrillation on chronic anti coalition therapy Hypertension Hyperlipidemia Plan: Mechanical fall leading to right intertrochanteric proximal hip fracture along with right impacted fracture involving the distal radial metaphysis and mild comminuted distal ulnar fracture status post repair of hip fracture and cast to the right upper extremity: Patient doing well post operatively. Patient now on his normal routine medication. Patient currently being evaluated for inpatient rehab instead of outpatient physical therapy. Await acceptance. Patient may go to inpatient rehab as early as today if accepted. Continue with incentive spirometer. Continue with pain medication as needed. Chronic atrial fibrillation on chronic anti coagulation therapy: Continue home medication. Hypertension: Continue home medication Hyperlipidemia: Continue home medication Time Spent Managing Pts Care (In Minutes): 55
[2018-09-20] MEDS: HYDROCODONE/APAP 7.5/325 MG TAB PO PRN ×3 (11:52→21:22)
[2018-09-20] MEDS: RIVAROXABAN 20 MG TABLET PO SCH (16:52)
--- NOTE | 2018-09-20 17:17 | P.PN ---
Date of Service: 09/20/18 (POD#2) S: PATIENT SITTING IN BEDSIDE CHAIR. The long arm cast is elevated on pillows and finger range of motion is good. O: Vital signs and hemoglobin(12.6) are stable. The right hip bandage is clean dry and intact. Neurovascular exam is intact for right lower extremity and right upper extremity. Physical therapy efforts pendingeach produced 120' with RW. A: Patient is making good progress for the first postoperative day. P: Continue mobilization as tolerated. Patient and agree she cannot manage his care alone. being considered for 5th floor rehabilitation stay.
[2018-09-20] MEDS ORDERED: DOCUSATE NA/SENNA CONC 1 TAB PO SCH (21:00)
[2018-09-21 05:57] LABS: Absolute Lymphocytes (CBC) 1.1 K/uL (0.7-4.9); Absolute Monocytes 0.9 K/uL (0.1-1.3); Absolute Neutrophil 4.4 K/uL (1.8-8.0); Basophils % 0.6 % (0-1.3); Eosinophils % 5.2 % (0-4.4); Hematocrit 33.5 % (39.6-49.0); Lymphocytes % 16.6 % (15.3-44.8); MPV 8.8 fL (7.6-11.3); Monocytes % 13.3 % (3.3-12.3); RBC Red Blood Cell Count 3.88 M/uL (4.33-5.43)
[2018-09-21 06:02] LABS: BUN Blood Urea Nitrogen 21 mg/dL (7-18); Bicarbonate 28 mmol/L (21-32); Glucose Level 90 mg/dL (74-106); Magnesium 2.2 mg/dL (1.8-2.4); Potassium 4.3 mmol/L (3.5-5.1); Sodium Level 138 mmol/L (136-145)
[2018-09-21] MEDS: HYDROCODONE/APAP 7.5/325 MG TAB PO PRN ×2 (09:06→13:45)
[2018-09-21] MEDS: NEBIVOLOL HCL 20 MG TABLET PO SCH (09:07)
[2018-09-21] MEDS: ROSUVASTATIN 10 MG TAB PO SCH (09:07)
[2018-09-21] MEDS: DOCUSATE NA 100 MG CAP PO SCH (09:07)
[2018-09-21] MEDS: ASCORBIC ACID 500 MG TABLET PO SCH (09:16)
--- NOTE | 2018-09-21 16:10 | P.PN ---
Subjective Date of Service: 09/21/18 Primary Care Provider: Dr. Stern; Cardiology-Dr. Chadwick Chief Complaint: right hip and right wrist fracture Subjective: Improving Physical Examination - Vital Signs Temperature: 97.9 F Blood Pressure: 122/72 Pulse: 63 Respirations: 18 Pulse Ox (%): 98 - Physical Exam General: Alert, In no apparent distress, Oriented x3, Cooperative HEENT: Atraumatic Neck: Supple Respiratory: Clear to auscultation bilaterally, Normal air movement Cardiovascular: Irregular heart rate/rhythm (Atrial fibrillation, rate controlled) Gastrointestinal: Normal bowel sounds, Soft and benign, Non-distended, No tenderness, No masses, No rebound, No guarding Musculoskeletal: No erythema, No tenderness, No warmth Integumentary: No tenderness/swelling, No erythema, No warmth, No cyanosis Neurological: Normal speech, Normal strength at 5/5 x4 extr, Normal tone - Studies Medications List Reviewed: Yes Assessment & Plan Discharge Plan: Other (Inpatient rehab) Plan to discharge in: 24 Hours Physician Review Additional Text: Impression: Mechanical fall leading to right intertrochanteric proximal hip fracture along with right impacted fracture involving the distal radial metaphysis and mild comminuted distal ulnar fracture Chronic atrial fibrillation on chronic anti coalition therapy Hypertension Hyperlipidemia Plan: Mechanical fall leading to right intertrochanteric proximal hip fracture along with right impacted fracture involving the distal radial metaphysis and mild comminuted distal ulnar fracture status post repair of hip fracture and cast to the right upper extremity: Patient doing well post operatively. Patient continues to improve with physical therapy. I will recommend inpatient rehab. Will speak to medical billing representative with insurance to approve this. Otherwise patient may be required by insurance to go to skilled facility versus home. Case discussed at length with patient. Chronic atrial fibrillation on chronic anti coagulation therapy: Continue home medication. Hypertension: Continue home medication Hyperlipidemia: Continue home medication Time Spent Managing Pts Care (In Minutes): 55
[2018-09-21] MEDS: RIVAROXABAN 20 MG TABLET PO SCH (17:39)
--- NOTE | 2018-09-21 18:07 | P.DS ---
Admission Date: 09/17/18 Discharge Date: 09/21/18 Primary Care Provider: Dr. Stern; Cardiology-Dr. Chadwick Disposition: TRANSFER TO INPATIENT REHAB Discharge Condition: GOOD Reason for Admission: right hip and right wrist fracture Consultations: Cardiology-Dr. Bean Orthopedics-Dr. Carter Procedures: ECHO: EF 67% LEFT VENTRICULAR WALL MOTION: NORMAL. DOPPLER/COLOR FLOW: MILD TRICUSPID REGURGITATION- MILD PULMONARY HYPERTENSION. COMMENTS: NORMAL LEFT VENTRICULAR SIZE AND FUNCTION- EJECTION FRACTION 67% . ATRIAL FIBRILLATION. LEFT ATRIUM ENLARGEMENT- NO THROMBUS. MITRAL ANNULAR CALCIFICATION. AORTIC SCLEROSIS. MILD PULMONARY HYPERTENSION. RIGHT VENTRICULAR SYSTOLIC PRESSURE 43 MMHG. Medical problem list: Mechanical fall leading to right intertrochanteric proximal hip fracture along with right impacted fracture involving the distal radial metaphysis and mild comminuted distal ulnar fracture Chronic atrial fibrillation on chronic anti coalition therapy Hypertension Hyperlipidemia Brief History of Present Illness: 78-year-old male presented to emergency room with a mechanical fall. Patient suffered right ulnar/radial fracture and right hip fracture. Patient was admitted for treatment. Hospital Course: Patient presented with Mechanical fall leading to right intertrochanteric proximal hip fracture along with right impacted fracture involving the distal radial metaphysis and mild comminuted distal ulnar fracture. Patient was evaluated by orthopedics. Surgical intervention was recommended. Patient was cleared by cardiology. Patient did well after repair of hip fracture and cast to the right upper extremity. Patient was evaluated by physical therapy and occupational therapy. Recommendation was for inpatient rehab. Patient accepted. Patient will continue in inpatient rehab. Patient with chronic atrial fibrillation on chronic anti coagulation therapy, hypertension, hyperlipidemia. Patient will continue with his medications including Bystolic 20 mg daily, Xarelto 20 mg daily, and Crestor 20 mg daily. Vital Signs/Physical Exam: Temp Pulse Resp BP Pulse Ox 97.9 F 63 18 122/72 98 09/21/18 16:10 09/21/18 16:10 09/21/18 16:10 09/21/18 16:10 09/21/18 16:10 General: Alert, In no apparent distress, Oriented x3, Cooperative HEENT: Atraumatic Neck: Supple Respiratory: Clear to auscultation bilaterally, Normal air movement Cardiovascular: Irregular heart rate/rhythm (Atrial fibrillation, rate controlled) Gastrointestinal: Normal bowel sounds, Soft and benign, Non-distended, No tenderness, No masses, No rebound, No guarding Musculoskeletal: No erythema, No tenderness, No warmth Integumentary: No erythema, No warmth, No cyanosis, Other (Patient would cast to the right upper extremity) Neurological: Normal speech, Normal strength at 5/5 x4 extr, Normal tone, Normal affect Laboratory Data at Discharge: WBC 6.9 K/uL (4.3-10.9) D 09/21/18 05:06 Hgb 11.4 g/dL (13.6-17.9) L 09/21/18 05:06 Hct 33.5 % (39.6-49.0) L 09/21/18 05:06 Plt Count 127 K/uL (152-406) L 09/21/18 05:06 PT 14.7 SECONDS (9.5-12.5) H 09/17/18 21:22 INR 1.26 09/17/18 21:22 Sodium 138 mmol/L (136-145) 09/21/18 05:06 Potassium 4.3 mmol/L (3.5-5.1) 09/21/18 05:06 BUN 21 mg/dL (7-18) H 09/21/18 05:06 Creatinine 0.71 mg/dL (0.55-1.3) 09/21/18 05:06 Glucose 90 mg/dL (74-106) 09/21/18 05:06 Magnesium 2.2 mg/dL (1.8-2.4) 09/21/18 05:06 Home Medications: Nebivolol HCl [Bystolic*] 1 tab PO DAILY 09/17/18 Rivaroxaban [Xarelto] 1 tab PO 1700 09/17/18 Rosuvastatin Calcium [Crestor] 1 tab PO DAILY 09/17/18 Vit C/Ascorb Sod/Multivit-Min [Emergen-C 500 mg Chewable Tab] 1 tab PO DAILY Docusate [Colace Cap*] 100 mg PO DAILY #30 cap 09/21/18 traMADol HCL [Ultram*] 50 mg PO TID PRN #20 tab 09/21/18 New Medications: Docusate [Colace Cap*] 100 mg PO DAILY #30 cap traMADol HCL [Ultram*] 50 mg PO TID PRN #20 tab PRN Reason: Pain Scale 2-4 (Mild) Patient Discharge Instructions: 1. Patient to be discharged to inpatient rehab for continued physical therapy and occupational therapy. 2. Patient may continue with his current medications. Diet: AHA Activity: Fall precautions Time spent managing pt's care (in minutes): 55
--- NOTE | 2018-09-27 00:13 | OP ---
Date of Procedure: 09/18/2018 Surgeon: Solomon Carter MD Woods Laborer: RACHEL Brown, who gave very necessary assistant restaurant general manager services throughout this case. Indications: The 78-year-old patient, Antonio Valdivia, suffered an intertrochanteric fracture of the rig ht hip and fractures of the right distal radius and ulna, with a fall at home. He was brought to the [facility] Emergency Department where x-ray revealed an intertrochanteric fr acture and distal radius and ulna fractures. The patient is aware of risks and benefits and has elec tasia to proceed with IM nail fixation of his right hip intertrochanteric fracture and a closed reducti on and long-arm cast application for the right wrist radius and ulna fractures. Technique: The patient was taken to the operating room and given a general anesthetic. He was then placed on the fracture table. Both lower extremities were secured in the traction boots for the feet . Time-out was called, and all pertinent facts were discussed, and it was decided to proceed with th e operation as planned. The C-arm was moved in between the legs, and a close reduction was verified by C-arm as adequate for fixation. Prepping and draping was carried out from the ribcage down past t he knee, and a vertical isolation drape was applied. The incision area was marked out; and with C-ar m verification of location, the initial incision was made to be 3 cm in length above the point of the greater trochanter of the right hip. The incision was carried initially through the skin and subcut aneous tissue. A deep blade was then used to divide the fascial layer in the same size of the entry point; and with palpation, the cannulated awl was centered over the point of the greater trochanter a nd used to enter the intertrochanteric space. The guidewire was passed through the cannulated awl an d into the femur. The size 11-mm x 180-mm Affixus hip nail with 130-degree angle was chosen. It was hooked up to the outrigger and pushed into position and tapped until it was at the proper depth, and the reduction again was verified in AP and lateral projections prior to inserting a guide pin from t he lateral femoral cortex up the calcar into the femoral head position slightly inferior and posterio r for strong bone contact. The guide pin was verified in good position, and then reaming was carried out, and a 10.5 x 105-mm lag screw was chosen and rotated into position. Then, drilling was carried out for the anti-rotational screw to be placed in a parallel fashion through the outrigger. This wa s done through the same incision on the lateral aspect of the thigh. It was drilled to 75 mm depth, and the anti-rotational screw 80 mm in length was chosen and passed through the incision to the drill hole in the lateral cortex and rotated until it was well-seated firmly adjacent to and parallel to t he lag screw. C-arm verified each step of this process. Then, the C-arm was moved to the distal end of the nail; and using again the outrigger, a skin incision 1 cm in length was made, and the deep kn niraj was used to extend the puncture through the fascial layer. The drill was placed through the troc ar that was put in position, and a drill hole was placed through the static opening for the distal in terlocking screw. After measuring and choosing a 36-mm x 5-mm cortical screw, the screw was passed i n through the trocar to the lateral cortex and then rotated into position through the interlocking ho le of the distal IM nail to be secured to the medial cortex of the distal femur as well. At that ernesto e, the C-arm was used to verify excellent position for the reduced fracture and optimal position for internal fixation components; 20 mL of 0.5% Marcaine with epi were injected into the puncture wounds and incisions. The estimated blood loss during this procedure was 75 mL. The punctures were closed with interrupted sutures of 2-0 Vicryl for the fascial and subcutaneous layers, for the proximal 2 in cisions, and then skin michael were used for closure of incisions, all 3 incisions being closed. A s terile Aquacel bandage was applied to cover all the incisions. The patient was then taken to the rec overy room having tolerated this procedure well. LAW/MOY Voice ID: [id number] Report ID: [id number]
== END 2018-09-21 20:05 | DRG 481 ==
LOC: ER 17:56 → ERHOLD 21:53 → 2ND 22:50
PROVIDERS: ADMIT Internal Medicine; ATTEND Family Medicine
PROC: 0PSKXZZ Reposition Right Ulna, External Approach (ICD-10-PCS; 2018-09-18)
PROC: 0QS634Z Reposition Right Upper Femur with Internal Fixation Device, Percutaneous Approach (ICD-10-PCS; principal; 2018-09-18 12:00)
PROC: 0PSHXZZ Reposition Right Radius, External Approach (ICD-10-PCS; 2018-09-18 12:00)
DX: S72.141A Displaced intertrochanteric fracture of right femur, initial encounter for closed fracture (principal); S52.601A Unspecified fracture of lower end of right ulna, initial encounter for closed fracture; S52.131A Displaced fracture of neck of right radius, initial encounter for closed fracture; W01.0XXA Fall on same level from slipping, tripping and stumbling without subsequent striking against object, initial encounter; Y93.01 Activity, walking, marching and hiking; Y92.019 Unspecified place in single-family (private) house as the place of occurrence of the external cause; I10 Essential (primary) hypertension; I48.2 Chronic atrial fibrillation; Z79.01 Long term (current) use of anticoagulants; E78.5 Hyperlipidemia, unspecified; I27.20 Pulmonary hypertension, unspecified
CPT/HCPCS: 36415; 70450; 71045; 73530; 80048; 81003; 83735; 85025; 85610; 90670; 93005; 93306; 96374; 97110; 97116; 97163; 97167; 97530; 99285; G0009; J0690; J2270; J2405; J2704; J3010; J3475; J7030

== ENCOUNTER 2018-09-21 16:55 | Inpatient (IN) | payer OTHER ==
--- NOTE | 2018-09-21 17:49 | R.PREADM ---
SCREENING DATE AND TIME 09/21/2018 17:14 (AERIAL PHOTOGRAMMETRIST) ANTICIPATED REHAB ADMISSION DATE 09/23/2018 REFERRING FACILITY [facility] REFERRAL DATE AND TIME 09/21/2018 17:14 (AERIAL PHOTOGRAMMETRIST) ACUTE ADMIT DATE 09/17/2018 Previous Rehabilitation(s): No. REFERRING PHYSICIAN DR. Kian Villa REHAB FACILITY [facility] CLINICAL LIA[place] PHYSICIAN REVIEWER Dr. Yomi Campbell M.D. MR# [id number] NAME GISELLE TRUJILLO ADDRESS [address] [place] [address] [address]ONE ZIP [id number] DATE OF 1940 AGE 78 SSN# [id number] GENDER male MARITAL STATUS RACE white ADMIT FROM 02 - [facility] PRE-HOSPITAL LIVING SETTING 01 - Home (private home/apt. board/care, assisted living, assisted, transitional living) HOME TYPE AND DETAILS Type of home: single family house # of levels in the residence: 1 # of steps to enter the residence: 0 # of steps within the residence: 0 PRE-HOSPITAL LIVING WITH Family/Relatives FAMILY SUPPORT Yes PRIMARY FAMILY CONTACT NAME Linda Trujillo PRIMARY FAMILY CONTACT PHONE PHONE PRIMARY FAMILY CONTACT ON ADM.? no IS PRIMARY FAMILY CONTACT AUTH. REP.? no 1ST EMERGENCY CONTACT Linda Trujillo 1ST CONTACT PHONE PHONE 1ST CONTACT ON ADM. no IS 1ST CONTACT AUTH. REP.? no PHONE 2ND CONTACT ON ADM.? no PATIENT EMPLOYMENT STATUS Retired (for age) PATIENT EMPLOYER No Employer PAYOR INFORMATION: 1ST PAYOR NAME Sofia 1ST PAYOR PHONE 1ST PAYOR POLICY ID [id number] INJURY/ILLNESS DUE TO ACCIDENT? No ANOTHER CONSTITUTION PARTY RESPONSIBLE? No PRIMARY REHAB/ACUTE DIAGNOSIS: right intertrochancteric proximal hip fx right impacted fx involving the distal radial metaphysis and mild comminuted distal ulnar fx ONSET DATE 09/17/2018 REHAB IMPAIRMENT CATEGORY (MELLY): 07 Fracture of LE (FracLE) MEETS 60% rule AFFECTED EXTREMITIES: RLE RUE PRIMARY DIAGNOSIS-RELATED SURGERIES: Emergency Unilateral Hip Fracture - performed by Solomon Carter on COMORBID REHAB/ACUTE DIAGNOSES: - N/A Chronic atrial fibrillation (I48.2) hypertension dyslipidemia INTERVENTIONS: - Hypertension Fluid management Medications VS RISK FOR COMPLICATIONS: - Hypertension CVA Hypotension AL TIA SUMMARY OF ACUTE HOSPITALIZATION: Pt. is a 78 yo Right-handed white male. On 09/17/2018 he was admitted to [facility] and underwent emergency surgery for right intertrochancteric proximal hip fx (Unilateral Hip Fracture) by DR. Kian Villa. Pre-morbidly, Pt. was independent/mod-I in Self-Care, Sphincter Control, Transfers Control, Communica tion, Social Cognition, and Locomotion; and he had good Sphincter Control. Currently, he has deficits of Self-Care, Transfers Control, Endurance, Balance, Safety Awareness, Loc omotion, and Social Cognition. Pt. is now referred to [facility] for acute in-patient rehabilitation in order to maximize patient's functional independence in activities of daily living, strength, ROM, and mobi lity. Patient has realistic goal of being discharged at assistance level 6-Jane to reside at Home with Fam jose/Relatives. PAST MEDICAL HISTORY Chronic atrial fibrillation (I48.2) dyslipidemia hypertension MEDICATION ALLERGIES: No Known Drug Allergies (NKDA) ENVIRONMENTAL ALLERGIES: - Substance Allergies None Known - Other Allergies None Known CODE STATUS: Full code WEIGHT/HEIGHT/BMI: WEIGHT 170 lbs HEIGHT 5' 11" BMI 23.7 DIET: - Diet Type Regular - Diet - Solid Texture Regular - Diet - Liquid Texture Regular - Tube Feed N/A SKIN DIAGRAM: Contusion on Right arm; extent - small; stage - NS(Not Stageable). Treatment - Per Physician's Orders . Incision on Right hip; extent - small; stage - NS(Not Stageable). Treatment - Per Physician's Orders. REVIEW OF SYSTEMS: - Gen Alert and awake Lying in bed No apparent distress Oriented to: person, time, and place - CVS RRR VITAL SIGNS Temperature: 98.3 F SBP/DBP: 138/78 Pulse: 62 Resp: 18 Vital signs stable, afebrile CURRENT SPHINCTER CONTROL: Pre-hospital bladder status: continent # of bladder accidents in the last 7 days prior to screenin Pre-hospital bowel status: continent # of bowel accidents in the last 7 days prior to screenin Last Bowel Movement Date: 09/21/2018 DETAILED CURRENT FUNCTIONAL STATUS: - Bladder accident frequency: Ind - No accidents in the past 7 days - Bowel accident frequency: Ind - No accidents in the past 7 days - Walking score based on distance walked: 0(N/A) FUNCTIONAL STATUS: - Self-Care A. Eating Ind Dion B. Grooming Ind Dion C. Bathing Ind modA D. Dressing - Upper Ind maxA E. Dressing - Lower Ind maxA F. Toileting Ind modA - Sphincter Control G: Bladder control Ind Ind H: Bowel control Ind Ind - Transfers Control I. Bed/Chair/Wheelchair Ind modA J. Toilet Ind modA K. Tub/Shower Ind modA - Locomotion L. Walk/Wheelchair (B) Ind maxA M. Stairs Ind ADNO - Communication N. Comprehension (B) Ind Jane O. Expression (B) Ind Jane - Social Cognition P. Social Interaction Ind Jane Q. Problem Solving Ind Jane R. Memory Ind sup - Endurance Fair - Balance Fair - Safety Awareness Fair CURRENT FUNC. DEFICITS: Self-Care, Transfers Control, Endurance, Balance, Safety Awareness, Locomotion, and Social Cognition THERAPY NOTES FROM ACUTE CARE: Attached. SPECIAL NEEDS: - Safety Concerns Skin breakdown precautions needed due to skin breakdown risk PRECAUTIONS: - Posterior Hip Precaution No adduction across midline No external rotation No hip flexion >90 degrees No internal rotation No wheel chair propulsion - Weight Bearing Precaution WBAT right LE NWB right wrist PATIENT NEEDS ACTIVE AND ONGOING THERAPEUTIC INTERVENTION OF MULTIPLE THERAPY DISCIPLINES, INCLUDING: - Occupational Therapy Evaluate and Treat. - Physical Therapy Evaluate and Treat. PATIENT NEEDS CLOSE MEDICAL SUPERVISION BY A REHABILITATION PHYSICIAN FOR: Bowel and Bladder Management Coordination of Treatment Team Medical and Co-Morbidity Management Post-Op Complications Wound Care PATIENT REQUIRES 24X7 REHAB NURSING FOR MEDICAL AND FUNCTIONAL MGT. OF THE FOLLOWING DEFICITS: ADL's Ambulation Bowel and Bladder Management Cognition Communication Disease Management Medication Management Patient/Family Education Providing Safe Environment Skin Integrity Transfers PATIENT REQUIRES INTENSIVE, COORDINATED INTERDISCIPLINARY APPROACH TO REHAB: Arranging Home Equipment/Services Discharge Planning Family Intervention/Training Histology Assistant/Case Management PATIENT REHAB POTENTIAL: Expected level of measurable improvement will be of a practical value to patient's functional capacit y or adaptations to impairments Has a viable Discharge Plan Medically appropriate; condition is sufficiently stable to participate in intensive rehab program Patient is able and expected to receive 3 hours of individualized therapy daily on at least 5 of ever y 7 days Patient's prognosis for significant practical improvement within a reasonable period of time appears Good DISCHARGE PLAN: - Estimated Length of Stay (days) 14. - Consensus on plan Discharge plan has been discussed with primary caregiver. Patient/Family is in agreement with the roque n. Primary caregiver is in agreement with the plan. - Patient/Family Goals Return home with assistance. - Planned Living Setting Upon Discharge Home, to live with Family/Relatives. RECOMMENDED CARE LEVEL: IRF RECOMMENDATION DETAILS: Recommended Admission to Comprehensive Rehabilitation Program to Increase Functional [place] SCREENER'S COMPLETENESS CONFIRMATION: - Screening Confirmation The patient data collection on this preadmission screening form is finished PHYSICIANS REVIEW AND ADMISSION DETERMINATION Admit - Based on my review of the Pre-Admission Screening results, in my medical judgment and experie nce, I concur with the findings and recommend admission to [facility], as this patient requires an IRF level of care. SIGNATURE PANEL: Clinical Liaison - [electronically] signed by Hedy Haney on 09/21/2018 at 17:34 (AERIAL PHOTOGRAMMETRIST) Physician Reviewer - [electronically] signed by Dr. Yomi Campbell M.D. on 09/21/2018 at 17:48 (AERIAL PHOTOGRAMMETRIST )
[2018-09-21] MEDS ORDERED: ZOLPIDEM TARTRATE 5 MG TABLET PO PRN (21:19)
[2018-09-21] MEDS ORDERED: LACTULOSE 20 GM/30 ML UCUP PO PRN (21:20)
[2018-09-21] MEDS ORDERED: MAGNESIUM HYDROXIDE 8% 30 ML PO PRN (21:21)
[2018-09-21] MEDS ORDERED: ACETAMINOPHEN 500 MG TAB PO PRN (21:23)
[2018-09-21 21:49] LABS: Urine Appearance CLEAR; Urine Bilirubin NEGATIVE (NEG); Urine Blood NEGATIVE (NEG); Urine Color DK YELLOW; Urine Glucose NEGATIVE (NEG); Urine Protein NEGATIVE (NEG); Urine Specific Gravity >=1.030 (1.005-1.030); Urine pH 5.5 (5.0-7.0)
[2018-09-21 22:04] LABS: Urine Bacteria <20 /HPF (NONE SEEN); Urine Culture Reflex Order NOT NEEDED; Urine Mucus 1+ /HPF (NONE SEEN); Urine RBC NONE SEEN /HPF (NONE SEEN)
[2018-09-21] MEDS ORDERED: ROSUVASTATIN 10 MG TAB PO SCH (23:00)
[2018-09-22 06:04] LABS: Absolute Lymphocytes (CBC) 1.1 K/uL (0.7-4.9); Absolute Monocytes 0.9 K/uL (0.1-1.3); Absolute Neutrophil 3.4 K/uL (1.8-8.0); Eosinophils % 4.5 % (0-4.4); Hematocrit 32.4 % (39.6-49.0); Lymphocytes % 19.5 % (15.3-44.8); MPV 8.5 fL (7.6-11.3); Monocytes % 15.6 % (3.3-12.3)
[2018-09-22 06:16] LABS: Albumin 2.7 g/dL (3.4-5.0); BUN Blood Urea Nitrogen 16 mg/dL (7-18); Bicarbonate 28 mmol/L (21-32); Glucose Level 86 mg/dL (74-106); Magnesium 2.2 mg/dL (1.8-2.4); Prealbumin 9.4 mg/dL (20-40); Sodium Level 138 mmol/L (136-145)
[2018-09-22 06:35] LABS: Blood Morphology Comment NOT SEEN (NOT SEEN); Platelet Estimate ADEQ
[2018-09-22] MEDS: DOCUSATE NA 100 MG CAP PO SCH (08:28)
[2018-09-22] MEDS: NEBIVOLOL HCL 20 MG TABLET PO SCH (08:28)
[2018-09-22] MEDS: PROMOD 30 ML DOSE PO SCH ×2 (08:29→20:27)
[2018-09-22] MEDS: ASCORBIC ACID 500 MG TABLET PO SCH (08:29)
[2018-09-22] MEDS: FERROUS SULFATE 325 MG TAB PO SCH (08:29)
[2018-09-22] MEDS: FE SULF/FA/VIT B COMP & C TAB PO SCH (08:29)
[2018-09-22] MEDS: HYDROCODONE/APAP 7.5/325 MG TAB PO PRN ×3 (08:33→15:59)
--- NOTE | 2018-09-22 14:52 | FAST ---
SHIFT START DATE/TIME: 09/22/2018 07:00 (DROSSER) SHIFT END DATE/TIME: 09/22/2018 19:00 (DROSSER) NAME GISELLE TRUJILLO DATE OF : 1940 DATE OF ADMISSION: 09/21/2018 20:14 (DROSSER) PHONE: AGE: 78 N# [id number] GENDER: Male ENCOUNTER PHYSICIAN: Dr. Yomi Campbell M.D. ADMISSION DIAGNOSIS: - Orthopaedic Disorders 08 - Unilateral Hip Fracture (08.11) right intertrochancteric proximal hip fx . right impacted fx involving the distal radial metaphysis a nd mild comminuted distal ulnar fx. EATING: EATING - STEP 1: Does the patient require the assistance of a person or device, or need extra time when eating? Yes. EATING - STEP 2: Does the patient require the assistance of a helper? Yes. EATING - STEP 3: Does the patient perform half or more of the eating tasks? Yes. EATING - STEP 4: Does the patient need only supervision, cuing, coaxing OR help to apply an orthosis OR help to cut fo od, open containers, pour liquids, or butter bread? Yes. EATING - SCORE: 5-SUP GROOMING: Comb/brush hair Oral care Wash, rinse, and dry face Wash, rinse, and dry hands GROOMING - STEP 1: Does the patient require the assistance of a person or device, or need extra time when grooming? Yes. GROOMING - STEP 2: Does the patient require the assistance of a helper? Yes. GROOMING - STEP 3: How much assistance does the patient require from the helper? Cuing, coaxing, instructions, or encour agement for completion of grooming GROOMING - SCORE: 5-SUP BATHING: Activity did not occur on this shift BATHING - SCORE: 0-UNK DRESSING - UPPER BODY: Activity did not occur on this shift ARTICLES SCORE Total number of steps: 0 DRESSING - UPPER BODY - SCORE: 0-UNK DRESSING - LOWER BODY: Activity did not occur on this shift ARTICLES SCORE Total number of steps: 0 DRESSING - LOWER BODY - SCORE: 0-UNK TOILETING: TOILETING - STEP 1: Does the patient require the assistance of a person or device, or need extra time with toileting? Yes . TOILETING - STEP 2: Does the patient require the assistance of a helper? Yes. TOILETING - STEP 3: How much assistance does the patient require from the helper? Hands-on assistance from the helper TOILETING - STEP 4: Of the 3 tasks: 1) Adjusting clothing prior to use, 2) Cleansing of perineal area, 3) Adjusting clot robin after use; How many tasks does the patient perform WITHOUT assistance of the helper? Two tasks TOILETING - SCORE: 3-MOD BLADDER MANAGEMENT: BLADDER MANAGEMENT - STEP 1: Does the patient control the bladder completely and intentionally without equipment or devices or med ications, and is always continent? No. BLADDER MANAGEMENT - STEP 2: Does the patient require the assistance of a helper? Yes. BLADDER MANAGEMENT - STEP 3: How much assistance does the patient require from the helper? Only supervision, stand-by, cuing, or c oaxing BLADDER MANAGEMENT - SCORE: 5-SUP BOWEL MANAGEMENT: Activity did not occur on this shift BOWEL MANAGEMENT - SCORE: 7-IND TRANSFERS: BED, CHAIR, WHEELCHAIR: TRANSFERS: BED, CHAIR, WHEELCHAIR - STEP 1: Does the patient require assistance of a person or device, or need extra time with bed, chair, or whe elchair transfers? Yes. TRANSFERS: BED, CHAIR, WHEELCHAIR - STEP 2: Does the patient require the assistance of a helper? Yes. TRANSFERS: BED, CHAIR, WHEELCHAIR - STEP 3: How much assistance does the patient require from the helper? Steadying/guiding assistance TRANSFERS: BED, CHAIR, WHEELCHAIR - SCORE: 4-MIN TRANSFERS: TOILET: TRANSFERS: TOILET - STEP 1: Does the patient require the assistance of a person or device, or need extra time with toilet transfe rs? Yes. TRANSFERS: TOILET - STEP 2: Does the patient require the assistance of a helper? Yes. TRANSFERS: TOILET - STEP 3: How much assistance does the patient require from the helper? Only supervision, cuing, coaxing, OR he lp to set out transfer equipment or to lock brakes and/or lift foot rests TRANSFERS: TOILET - SCORE: 5-SUP TRANSFERS: SHOWER: Activity did not occur on this shift TRANSFERS: SHOWER - SCORE: 0-UNK TRANSFERS: TUB: Activity did not occur on this shift TRANSFERS: TUB - SCORE: 0-UNK LOCOMOTION: WALK: Activity did not occur on this shift LOCOMOTION: WALK - SCORE: 0-UNK LOCOMOTION: WHEELCHAIR: Activity did not occur on this shift LOCOMOTION: WHEELCHAIR - SCORE: 0-UNK COMPREHENSION: COMPREHENSION: TYPE: Both COMPREHENSION - STEP 1: Does the patient require help from a person or device, or need extra time to understand complex and a bstract ideas (such as current events, finances, discharge planning, medical issues, relationships, e tc)? No. COMPREHENSION - STEP 2: Does the patient need extra time, require an assistive device (such as glasses for visual comprehensi on or a hearing aid for auditory comprehension) or does s/he have mild difficulty understanding compl ex and abstract information? Yes. COMPREHENSION - SCORE: 6-LISA EXPRESSION EXPRESSION: TYPE: Both EXPRESSION - STEP 1: Does the patient require help from a person or device, or need extra time expressing complex and abst ract ideas (such as current events, finances, discharge planning, medical issues, relationships, etc) ? No. EXPRESSION - STEP 2: Does the patient need extra time, require an assistive device (such as augmentive communication syste m or a communication board), OR does s/he have mild difficulty expressing complex and abstract ideas (including mild dysarthria or mild word-find problems)? Yes. EXPRESSION - SCORE: 6-LISA SOCIAL INTERACTION: SOCIAL INTERACTION - STEP 1: Does the patient require a helper to interact with others in social and therapeutic situations? No. SOCIAL INTERACTION - STEP 2: Does the patient need extra time in social situations, OR does s/he interact with staff, other patien ts, and family members ONLY in structured environments, OR does s/he require medication for social in teraction? Yes, patient needs extra time SOCIAL INTERACTION - SCORE: 6-LISA PROBLEM SOLVING: PROBLEM SOLVING - STEP 1: Does the patient need help from a person or device, or need extra time to solve complex problems such as managing a checking account or confronting interpersonal problems? No. PROBLEM SOLVING - STEP 2: Does the patient require extra time to make decisions or solve problems, OR does s/he have slight dif ficulty reading, initiating, or self-correcting in unfamiliar situations? Yes, patient needs extra ti me. PROBLEM SOLVING - SCORE: 6-LISA MEMORY: MEMORY - STEP 1: Does the patient need help from a person or device, or need extra time to remember frequently encount ered people, daily routines, and executing requests? No. MEMORY - STEP 2: Does the patient have slight difficulty recognizing frequently encountered people, daily routines, or executing requests without the need for repetition or using self-initiated or environmental cues to remember? Yes. MEMORY - SCORE: 6-LISA SIGNATURE PANEL: The following modified sections: Eating - Score, Grooming - Score, Bathing - Score, Dressing - Upper Body - Score, Dressing - Lower Body - Score, Toileting - Score, Bladder Management - Score, Bowel Man agement - Score, Transfers: Bed, Chair, Wheelchair - Score, Transfers: Toilet - Score, Transfers: Neli wer - Score, Transfers: Tub - Score, Locomotion: Walk - Score, Locomotion: Wheelchair - Score, Compre hension - Score, Expression - Score, Social Interaction - Score, Problem Solving - Score, Memory - Sc ore were [electronically] signed by Didier Moore on Sat Sep 22 2018 14:51:21 GMT-0600 (Central Standard Time)
[2018-09-22] MEDS: RIVAROXABAN 10 MG TABLET PO SCH (16:54)
--- NOTE | 2018-09-22 18:48 | FAST ---
ENCOUNTER DATE AND TIME: 09/22/2018 08:00 (TUBER MACHINE CUTTER) NAME GISELLE TRUJILLO DATE OF : 1940 DATE OF ADMISSION: 09/21/2018 20:14 (TUBER MACHINE CUTTER) PHONE: AGE: 78 SSN# [id number] GENDER: Male ENCOUNTER PHYSICIAN: Dr. Yomi Campbell M.D. ADMISSION DIAGNOSIS: - Orthopaedic Disorders 08 - Unilateral Hip Fracture (08.11) right intertrochancteric proximal hip fx . right impacted fx involving the distal radial metaphysis a nd mild comminuted distal ulnar fx. EATING: Activity did not occur on this shift EATING - SCORE: 0-UNK GROOMING: Activity did not occur on this shift GROOMING - SCORE: 0-UNK BATHING: Activity did not occur on this shift BATHING - SCORE: 0-UNK DRESSING - UPPER BODY: Activity did not occur on this shift Patient is not dressing in public clothing ARTICLES SCORE Total number of steps: 0 DRESSING - UPPER BODY - SCORE: 0-UNK DRESSING - LOWER BODY: Activity did not occur on this shift Patient is not dressing in public clothing ARTICLES SCORE Total number of steps: 0 DRESSING - LOWER BODY - SCORE: 0-UNK TOILETING: Activity did not occur on this shift TOILETING - SCORE: 0-UNK BLADDER MANAGEMENT: Activity did not occur on this shift BLADDER MANAGEMENT - SCORE: 7-IND BOWEL MANAGEMENT: Activity did not occur on this shift BOWEL MANAGEMENT - SCORE: 7-IND TRANSFERS: BED, CHAIR, WHEELCHAIR: TRANSFERS: BED, CHAIR, WHEELCHAIR - STEP 1: Does the patient require assistance of a person or device, or need extra time with bed, chair, or whe elchair transfers? Yes. TRANSFERS: BED, CHAIR, WHEELCHAIR - STEP 2: Does the patient require the assistance of a helper? Yes. TRANSFERS: BED, CHAIR, WHEELCHAIR - STEP 3: How much assistance does the patient require from the helper? Lifting of the legs TRANSFERS: BED, CHAIR, WHEELCHAIR - STEP 4: How many legs does the patient require the helper to lift? one leg TRANSFERS: BED, CHAIR, WHEELCHAIR - SCORE: 4-MIN TRANSFERS: BED, CHAIR, WHEELCHAIR - COMMENTS: Pt uses HW on LUE during transfers TRANSFERS: TOILET: TRANSFERS: TOILET - STEP 1: Does the patient require the assistance of a person or device, or need extra time with toilet transfe rs? Yes. TRANSFERS: TOILET - STEP 2: Does the patient require the assistance of a helper? Yes. TRANSFERS: TOILET - STEP 3: How much assistance does the patient require from the helper? Patient performs half or more of the tr ansferring tasks TRANSFERS: TOILET - STEP 4: Does the patient need only incidental help such as contact guard or steadying during toilet transfer? Yes. TRANSFERS: TOILET - SCORE: 4-MIN TRANSFERS: SHOWER: Activity did not occur on this shift TRANSFERS: SHOWER - SCORE: 0-UNK TRANSFERS: TUB: Activity did not occur on this shift TRANSFERS: TUB - SCORE: 0-UNK LOCOMOTION: WALK: LOCOMOTION: WALK - STEP 1: Does the patient need help from a person or device, or need extra time to walk 150 feet? Yes. LOCOMOTION: WALK - STEP 2: How much assistance does the patient require to walk a minimum of 150 feet? Only incidental help such as contact guarding or steadying LOCOMOTION: WALK - SCORE: 4-MIN LOCOMOTION: WHEELCHAIR: LOCOMOTION: WHEELCHAIR - STEP 1: Does the patient need help to go 150 feet in a wheelchair? Yes. LOCOMOTION: WHEELCHAIR - STEP 2: How much assistance does the patient need from the helper? Only incidental help such as around corner s or over thresholds LOCOMOTION: WHEELCHAIR - SCORE: 4-MIN LOCOMOTION: STAIRS: LOCOMOTION: STAIRS - STEP 1: Does the patient need help to go up and down 12 to 14 stairs? Yes. LOCOMOTION: STAIRS - STEP 2: How much assistance does the patient need from the helper to go a minimum of 12 to 14 stairs? Only in cidental help such as contact guarding or steadying LOCOMOTION: STAIRS - SCORE: 4-MIN COMPREHENSION: COMPREHENSION - SCORE: 0-UNK EXPRESSION EXPRESSION - SCORE: 0-UNK SOCIAL INTERACTION: SOCIAL INTERACTION - SCORE: 0-UNK PROBLEM SOLVING: PROBLEM SOLVING - SCORE: 0-UNK MEMORY: MEMORY - SCORE: 0-UNK SIGNATURE PANEL: The following modified sections: Transfers: Bed, Chair, Wheelchair - Score, Transfers: Bed, Chair, Wh eelchair - Comments:, Transfers: Toilet - Score, Locomotion: Walk - Score, Locomotion: Wheelchair - S core, Locomotion: Stairs - Score were [electronically] signed by Sydnie Soliman on Sat Sep 22 2018 1 8:47:43 GMT-0600 (Central Standard Time)
[2018-09-22] MEDS ORDERED: ROSUVASTATIN 10 MG TAB PO SCH (21:00)
--- NOTE | 2018-09-23 02:30 | FAST ---
SHIFT START DATE/TIME: 09/22/2018 19:00 (WHIP SAWYER) SHIFT END DATE/TIME: 09/23/2018 07:00 (WHIP SAWYER) NAME GISELLE TRUJILLO DATE OF : 1940 DATE OF ADMISSION: 09/21/2018 20:14 (WHIP SAWYER) PHONE: AGE: 78 SSN# [id number] GENDER: Male ENCOUNTER PHYSICIAN: Dr. Yomi Campbell M.D. ADMISSION DIAGNOSIS: - Orthopaedic Disorders 08 - Unilateral Hip Fracture (08.11) right intertrochancteric proximal hip fx . right impacted fx involving the distal radial metaphysis a nd mild comminuted distal ulnar fx. EATING: Activity did not occur on this shift EATING - SCORE: 0-UNK GROOMING: Activity did not occur on this shift GROOMING - SCORE: 0-UNK BATHING: Activity did not occur on this shift BATHING - SCORE: 0-UNK DRESSING - UPPER BODY: Activity did not occur on this shift ARTICLES SCORE Total number of steps: 0 DRESSING - UPPER BODY - SCORE: 0-UNK DRESSING - LOWER BODY: Activity did not occur on this shift ARTICLES SCORE Total number of steps: 0 DRESSING - LOWER BODY - SCORE: 0-UNK TOILETING: Activity did not occur on this shift TOILETING - SCORE: 0-UNK BLADDER MANAGEMENT: BLADDER MANAGEMENT - STEP 1: Does the patient control the bladder completely and intentionally without equipment or devices or med ications, and is always continent? Yes. BLADDER MANAGEMENT - SCORE: 7-IND BOWEL MANAGEMENT: Activity did not occur on this shift BOWEL MANAGEMENT - SCORE: 7-IND TRANSFERS: BED, CHAIR, WHEELCHAIR: Activity did not occur on this shift TRANSFERS: BED, CHAIR, WHEELCHAIR - SCORE: 0-UNK TRANSFERS: TOILET: Activity did not occur on this shift TRANSFERS: TOILET - SCORE: 0-UNK TRANSFERS: SHOWER: Activity did not occur on this shift TRANSFERS: SHOWER - SCORE: 0-UNK TRANSFERS: TUB: Activity did not occur on this shift TRANSFERS: TUB - SCORE: 0-UNK LOCOMOTION: WALK: Activity did not occur on this shift LOCOMOTION: WALK - SCORE: 0-UNK LOCOMOTION: WHEELCHAIR: Activity did not occur on this shift LOCOMOTION: WHEELCHAIR - SCORE: 0-UNK COMPREHENSION: COMPREHENSION: TYPE: Both COMPREHENSION - STEP 1: Does the patient require help from a person or device, or need extra time to understand complex and a bstract ideas (such as current events, finances, discharge planning, medical issues, relationships, e tc)? No. COMPREHENSION - STEP 2: Does the patient need extra time, require an assistive device (such as glasses for visual comprehensi on or a hearing aid for auditory comprehension) or does s/he have mild difficulty understanding compl ex and abstract information? Yes. COMPREHENSION - SCORE: 6-LISA EXPRESSION EXPRESSION: TYPE: Both EXPRESSION - STEP 1: Does the patient require help from a person or device, or need extra time expressing complex and abst ract ideas (such as current events, finances, discharge planning, medical issues, relationships, etc) ? No. EXPRESSION - STEP 2: Does the patient need extra time, require an assistive device (such as augmentive communication syste m or a communication board), OR does s/he have mild difficulty expressing complex and abstract ideas (including mild dysarthria or mild word-find problems)? No. EXPRESSION - SCORE: 7-IND SOCIAL INTERACTION: SOCIAL INTERACTION - STEP 1: Does the patient require a helper to interact with others in social and therapeutic situations? No. SOCIAL INTERACTION - STEP 2: Does the patient need extra time in social situations, OR does s/he interact with staff, other patien ts, and family members ONLY in structured environments, OR does s/he require medication for social in teraction? Yes, patient requires medication for social interaction SOCIAL INTERACTION - SCORE: 6-LISA PROBLEM SOLVING: PROBLEM SOLVING - SCORE: 0-UNK MEMORY: MEMORY - STEP 1: Does the patient need help from a person or device, or need extra time to remember frequently encount ered people, daily routines, and executing requests? No. MEMORY - STEP 2: Does the patient have slight difficulty recognizing frequently encountered people, daily routines, or executing requests without the need for repetition or using self-initiated or environmental cues to remember? No. MEMORY - SCORE: 7-IND SIGNATURE PANEL: The following modified sections: Eating - Score, Grooming - Score, Bathing - Score, Dressing - Upper Body - Score, Dressing - Lower Body - Score, Toileting - Score, Bladder Management - Score, Bowel Man agement - Score, Transfers: Bed, Chair, Wheelchair - Score, Transfers: Toilet - Score, Transfers: Neli wer - Score, Transfers: Tub - Score, Locomotion: Walk - Score, Locomotion: Wheelchair - Score, Compre hension - Score, Expression - Score, Social Interaction - Score, Problem Solving - Score, Memory - Sc ore were [electronically] signed by Geno Carlos CNA on MonSep 23 2018 02:29:56 T-0600 ([facility])
[2018-09-23] MEDS: HYDROCODONE/APAP 7.5/325 MG TAB PO PRN ×4 (08:24→20:43)
[2018-09-23] MEDS: ROSUVASTATIN 10 MG TAB PO SCH (08:26)
[2018-09-23] MEDS: DOCUSATE NA 100 MG CAP PO SCH (08:26)
[2018-09-23] MEDS: ASCORBIC ACID 500 MG TABLET PO SCH (08:27)
[2018-09-23] MEDS: FERROUS SULFATE 325 MG TAB PO SCH (08:27)
[2018-09-23] MEDS: FE SULF/FA/VIT B COMP & C TAB PO SCH (08:27)
[2018-09-23] MEDS: NEBIVOLOL HCL 20 MG TABLET PO SCH (08:27)
[2018-09-23] MEDS: PROMOD 30 ML DOSE PO SCH ×2 (08:28→20:42)
--- NOTE | 2018-09-23 14:15 | FAST ---
SHIFT START DATE/TIME: 09/23/2018 07:00 (IT PROGRAMMER ANALYST) SHIFT END DATE/TIME: 09/23/2018 19:00 (IT PROGRAMMER ANALYST) NAME GISELLE TRUJILLO DATE OF : 1940 DATE OF ADMISSION: 09/21/2018 20:14 (IT PROGRAMMER ANALYST) PHONE: AGE: 78 N# [id number] GENDER: Male ENCOUNTER PHYSICIAN: Dr. Yomi Campbell M.D. ADMISSION DIAGNOSIS: - Orthopaedic Disorders 08 - Unilateral Hip Fracture (08.11) right intertrochancteric proximal hip fx . right impacted fx involving the distal radial metaphysis a nd mild comminuted distal ulnar fx. EATING: EATING - STEP 1: Does the patient require the assistance of a person or device, or need extra time when eating? Yes. EATING - STEP 2: Does the patient require the assistance of a helper? Yes. EATING - STEP 3: Does the patient perform half or more of the eating tasks? Yes. EATING - STEP 4: Does the patient need only supervision, cuing, coaxing OR help to apply an orthosis OR help to cut fo od, open containers, pour liquids, or butter bread? Yes. EATING - SCORE: 5-SUP GROOMING: Comb/brush hair Oral care Wash, rinse, and dry face Wash, rinse, and dry hands GROOMING - STEP 1: Does the patient require the assistance of a person or device, or need extra time when grooming? Yes. GROOMING - STEP 2: Does the patient require the assistance of a helper? Yes. GROOMING - STEP 3: How much assistance does the patient require from the helper? Cuing, coaxing, instructions, or encour agement for completion of grooming GROOMING - SCORE: 5-SUP BATHING: Activity did not occur on this shift BATHING - SCORE: 0-UNK DRESSING - UPPER BODY: Activity did not occur on this shift ARTICLES SCORE Total number of steps: 0 DRESSING - UPPER BODY - SCORE: 0-UNK DRESSING - LOWER BODY: Activity did not occur on this shift ARTICLES SCORE Total number of steps: 0 DRESSING - LOWER BODY - SCORE: 0-UNK TOILETING: TOILETING - STEP 1: Does the patient require the assistance of a person or device, or need extra time with toileting? Yes . TOILETING - STEP 2: Does the patient require the assistance of a helper? Yes. TOILETING - STEP 3: How much assistance does the patient require from the helper? Hands-on assistance from the helper TOILETING - STEP 4: Of the 3 tasks: 1) Adjusting clothing prior to use, 2) Cleansing of perineal area, 3) Adjusting clot robin after use; How many tasks does the patient perform WITHOUT assistance of the helper? Three tasks with steadying assistance from the helper TOILETING - SCORE: 4-MIN BLADDER MANAGEMENT: BLADDER MANAGEMENT - STEP 1: Does the patient control the bladder completely and intentionally without equipment or devices or med ications, and is always continent? No. BLADDER MANAGEMENT - STEP 2: Does the patient require the assistance of a helper? No, patient requires and independently uses an a ssistive device, such as a urinal, bedpan, bedside commode, catheter, absorbent pad, or collecting de vice BLADDER MANAGEMENT - SCORE: 6-LISA BOWEL MANAGEMENT: Activity did not occur on this shift BOWEL MANAGEMENT - SCORE: 7-IND TRANSFERS: BED, CHAIR, WHEELCHAIR: TRANSFERS: BED, CHAIR, WHEELCHAIR - STEP 1: Does the patient require assistance of a person or device, or need extra time with bed, chair, or whe elchair transfers? Yes. TRANSFERS: BED, CHAIR, WHEELCHAIR - STEP 2: Does the patient require the assistance of a helper? Yes. TRANSFERS: BED, CHAIR, WHEELCHAIR - STEP 3: How much assistance does the patient require from the helper? Steadying/guiding assistance TRANSFERS: BED, CHAIR, WHEELCHAIR - SCORE: 4-MIN TRANSFERS: TOILET: TRANSFERS: TOILET - STEP 1: Does the patient require the assistance of a person or device, or need extra time with toilet transfe rs? Yes. TRANSFERS: TOILET - STEP 2: Does the patient require the assistance of a helper? Yes. TRANSFERS: TOILET - STEP 3: How much assistance does the patient require from the helper? Only supervision, cuing, coaxing, OR he lp to set out transfer equipment or to lock brakes and/or lift foot rests TRANSFERS: TOILET - SCORE: 5-SUP TRANSFERS: SHOWER: Activity did not occur on this shift TRANSFERS: SHOWER - SCORE: 0-UNK TRANSFERS: TUB: Activity did not occur on this shift TRANSFERS: TUB - SCORE: 0-UNK LOCOMOTION: WALK: Activity did not occur on this shift LOCOMOTION: WALK - SCORE: 0-UNK LOCOMOTION: WHEELCHAIR: Activity did not occur on this shift LOCOMOTION: WHEELCHAIR - SCORE: 0-UNK COMPREHENSION: COMPREHENSION: TYPE: Both COMPREHENSION - STEP 1: Does the patient require help from a person or device, or need extra time to understand complex and a bstract ideas (such as current events, finances, discharge planning, medical issues, relationships, e tc)? No. COMPREHENSION - STEP 2: Does the patient need extra time, require an assistive device (such as glasses for visual comprehensi on or a hearing aid for auditory comprehension) or does s/he have mild difficulty understanding compl ex and abstract information? Yes. COMPREHENSION - SCORE: 6-LISA EXPRESSION EXPRESSION: TYPE: Both EXPRESSION - STEP 1: Does the patient require help from a person or device, or need extra time expressing complex and abst ract ideas (such as current events, finances, discharge planning, medical issues, relationships, etc) ? No. EXPRESSION - STEP 2: Does the patient need extra time, require an assistive device (such as augmentive communication syste m or a communication board), OR does s/he have mild difficulty expressing complex and abstract ideas (including mild dysarthria or mild word-find problems)? Yes. EXPRESSION - SCORE: 6-LISA SOCIAL INTERACTION: SOCIAL INTERACTION - STEP 1: Does the patient require a helper to interact with others in social and therapeutic situations? No. SOCIAL INTERACTION - STEP 2: Does the patient need extra time in social situations, OR does s/he interact with staff, other patien ts, and family members ONLY in structured environments, OR does s/he require medication for social in teraction? Yes, patient needs extra time SOCIAL INTERACTION - SCORE: 6-LISA PROBLEM SOLVING: PROBLEM SOLVING - STEP 1: Does the patient need help from a person or device, or need extra time to solve complex problems such as managing a checking account or confronting interpersonal problems? No. PROBLEM SOLVING - STEP 2: Does the patient require extra time to make decisions or solve problems, OR does s/he have slight dif ficulty reading, initiating, or self-correcting in unfamiliar situations? Yes, patient needs extra ti me. PROBLEM SOLVING - SCORE: 6-LISA MEMORY: MEMORY - STEP 1: Does the patient need help from a person or device, or need extra time to remember frequently encount ered people, daily routines, and executing requests? No. MEMORY - STEP 2: Does the patient have slight difficulty recognizing frequently encountered people, daily routines, or executing requests without the need for repetition or using self-initiated or environmental cues to remember? Yes. MEMORY - SCORE: 6-LISA SIGNATURE PANEL: The following modified sections: Eating - Score, Grooming - Score, Bathing - Score, Dressing - Upper Body - Score, Dressing - Lower Body - Score, Toileting - Score, Bladder Management - Score, Bowel Man agement - Score, Transfers: Bed, Chair, Wheelchair - Score, Transfers: Toilet - Score, Transfers: Neli wer - Score, Transfers: Tub - Score, Locomotion: Walk - Score, Locomotion: Wheelchair - Score, Compre hension - Score, Expression - Score, Social Interaction - Score, Problem Solving - Score, Memory - Sc ore were [electronically] signed by Didier Moore on Sun Sep 23 2018 14:13:53 GMT-0600 (Central Standard Time)
[2018-09-23] MEDS: RIVAROXABAN 10 MG TABLET PO SCH (16:23)
[2018-09-23] MEDS: TRAMADOL HCL 50 MG TAB PO PRN (19:00)
--- NOTE | 2018-09-24 01:10 | FAST ---
SHIFT START DATE/TIME: 09/23/2018 19:00 (RADIO TIME BUYER) SHIFT END DATE/TIME: 09/24/2018 07:00 (RADIO TIME BUYER) NAME GISELLE TRUJILLO DATE OF : 1940 DATE OF ADMISSION: 09/21/2018 20:14 (RADIO TIME BUYER) PHONE: AGE: 78 SSN# [id number] GENDER: Male ENCOUNTER PHYSICIAN: Dr. Yomi Campbell M.D. ADMISSION DIAGNOSIS: - Orthopaedic Disorders 08 - Unilateral Hip Fracture (08.11) right intertrochancteric proximal hip fx . right impacted fx involving the distal radial metaphysis a nd mild comminuted distal ulnar fx. EATING: Activity did not occur on this shift EATING - SCORE: 0-UNK GROOMING: Activity did not occur on this shift GROOMING - SCORE: 0-UNK BATHING: Activity did not occur on this shift BATHING - SCORE: 0-UNK DRESSING - UPPER BODY: Activity did not occur on this shift ARTICLES SCORE Total number of steps: 0 DRESSING - UPPER BODY - SCORE: 0-UNK DRESSING - LOWER BODY: Activity did not occur on this shift ARTICLES SCORE Total number of steps: 0 DRESSING - LOWER BODY - SCORE: 0-UNK TOILETING: Activity did not occur on this shift TOILETING - SCORE: 0-UNK BLADDER MANAGEMENT: Activity did not occur on this shift BLADDER MANAGEMENT - SCORE: 7-IND BOWEL MANAGEMENT: Activity did not occur on this shift BOWEL MANAGEMENT - SCORE: 7-IND TRANSFERS: BED, CHAIR, WHEELCHAIR: Activity did not occur on this shift TRANSFERS: BED, CHAIR, WHEELCHAIR - SCORE: 0-UNK TRANSFERS: TOILET: Activity did not occur on this shift TRANSFERS: TOILET - SCORE: 0-UNK TRANSFERS: SHOWER: Activity did not occur on this shift TRANSFERS: SHOWER - SCORE: 0-UNK TRANSFERS: TUB: Activity did not occur on this shift TRANSFERS: TUB - SCORE: 0-UNK LOCOMOTION: WALK: Activity did not occur on this shift LOCOMOTION: WALK - SCORE: 0-UNK LOCOMOTION: WHEELCHAIR: Activity did not occur on this shift LOCOMOTION: WHEELCHAIR - SCORE: 0-UNK COMPREHENSION: COMPREHENSION: TYPE: Both COMPREHENSION - STEP 1: Does the patient require help from a person or device, or need extra time to understand complex and a bstract ideas (such as current events, finances, discharge planning, medical issues, relationships, e tc)? No. COMPREHENSION - STEP 2: Does the patient need extra time, require an assistive device (such as glasses for visual comprehensi on or a hearing aid for auditory comprehension) or does s/he have mild difficulty understanding compl ex and abstract information? Yes. COMPREHENSION - SCORE: 6-LISA EXPRESSION EXPRESSION: TYPE: Both EXPRESSION - STEP 1: Does the patient require help from a person or device, or need extra time expressing complex and abst ract ideas (such as current events, finances, discharge planning, medical issues, relationships, etc) ? No. EXPRESSION - STEP 2: Does the patient need extra time, require an assistive device (such as augmentive communication syste m or a communication board), OR does s/he have mild difficulty expressing complex and abstract ideas (including mild dysarthria or mild word-find problems)? No. EXPRESSION - SCORE: 7-IND SOCIAL INTERACTION: SOCIAL INTERACTION - STEP 1: Does the patient require a helper to interact with others in social and therapeutic situations? No. SOCIAL INTERACTION - STEP 2: Does the patient need extra time in social situations, OR does s/he interact with staff, other patien ts, and family members ONLY in structured environments, OR does s/he require medication for social in teraction? Yes, patient requires medication for social interaction SOCIAL INTERACTION - SCORE: 6-LISA PROBLEM SOLVING: PROBLEM SOLVING - STEP 1: Does the patient need help from a person or device, or need extra time to solve complex problems such as managing a checking account or confronting interpersonal problems? No. PROBLEM SOLVING - STEP 2: Does the patient require extra time to make decisions or solve problems, OR does s/he have slight dif ficulty reading, initiating, or self-correcting in unfamiliar situations? No. PROBLEM SOLVING - SCORE: 7-IND MEMORY: MEMORY - STEP 1: Does the patient need help from a person or device, or need extra time to remember frequently encount ered people, daily routines, and executing requests? No. MEMORY - STEP 2: Does the patient have slight difficulty recognizing frequently encountered people, daily routines, or executing requests without the need for repetition or using self-initiated or environmental cues to remember? No. MEMORY - SCORE: 7-IND SIGNATURE PANEL: The following modified sections: Eating - Score, Grooming - Score, Bathing - Score, Dressing - Upper Body - Score, Dressing - Lower Body - Score, Toileting - Score, Bladder Management - Score, Bowel Man agement - Score, Transfers: Bed, Chair, Wheelchair - Score, Transfers: Toilet - Score, Transfers: Neli wer - Score, Transfers: Tub - Score, Locomotion: Walk - Score, Locomotion: Wheelchair - Score, Compre hension - Score, Expression - Score, Social Interaction - Score, Problem Solving - Score, Memory - Sc ore were [electronically] signed by Geno Carlos CNA on MonSep 24 2018 01:09:59 T-0600 ([facility])
[2018-09-24] MEDS: HYDROCODONE/APAP 7.5/325 MG TAB PO PRN ×3 (08:03→21:58)
[2018-09-24] MEDS: DOCUSATE NA 100 MG CAP PO SCH (08:03)
[2018-09-24] MEDS: FERROUS SULFATE 325 MG TAB PO SCH (08:03)
[2018-09-24] MEDS: NEBIVOLOL HCL 20 MG TABLET PO SCH (08:03)
[2018-09-24] MEDS: FE SULF/FA/VIT B COMP & C TAB PO SCH (08:03)
[2018-09-24] MEDS: ASCORBIC ACID 500 MG TABLET PO SCH (08:03)
[2018-09-24] MEDS: PROMOD 30 ML DOSE PO SCH ×2 (08:05→19:49)
--- NOTE | 2018-09-24 10:20 | FAST ---
ENCOUNTER DATE AND TIME: 09/24/2018 08:00 (PAROLE HEARING OFFICER) NAME GISELLE TRUJILLO DATE OF : 1940 DATE OF ADMISSION: 09/21/2018 20:14 (PAROLE HEARING OFFICER) PHONE: AGE: 78 SSN# [id number] GENDER: Male ENCOUNTER PHYSICIAN: Dr. Yomi Campbell M.D. ADMISSION DIAGNOSIS: - Orthopaedic Disorders 08 - Unilateral Hip Fracture (08.11) right intertrochancteric proximal hip fx . right impacted fx involving the distal radial metaphysis a nd mild comminuted distal ulnar fx. EATING: Activity did not occur on this shift EATING - SCORE: 0-UNK GROOMING: Activity did not occur on this shift GROOMING - SCORE: 0-UNK BATHING: Activity did not occur on this shift BATHING - SCORE: 0-UNK DRESSING - UPPER BODY: Activity did not occur on this shift Patient is not dressing in public clothing ARTICLES SCORE Total number of steps: 0 DRESSING - UPPER BODY - SCORE: 0-UNK DRESSING - LOWER BODY: Activity did not occur on this shift Patient is not dressing in public clothing ARTICLES SCORE Total number of steps: 0 DRESSING - LOWER BODY - SCORE: 0-UNK TOILETING: Activity did not occur on this shift TOILETING - SCORE: 0-UNK BLADDER MANAGEMENT: Activity did not occur on this shift BLADDER MANAGEMENT - SCORE: 7-IND BOWEL MANAGEMENT: Activity did not occur on this shift BOWEL MANAGEMENT - SCORE: 7-IND TRANSFERS: BED, CHAIR, WHEELCHAIR: TRANSFERS: BED, CHAIR, WHEELCHAIR - STEP 1: Does the patient require assistance of a person or device, or need extra time with bed, chair, or whe elchair transfers? Yes. TRANSFERS: BED, CHAIR, WHEELCHAIR - STEP 2: Does the patient require the assistance of a helper? Yes. TRANSFERS: BED, CHAIR, WHEELCHAIR - STEP 3: How much assistance does the patient require from the helper? Steadying/guiding assistance TRANSFERS: BED, CHAIR, WHEELCHAIR - SCORE: 4-MIN TRANSFERS: TOILET: Activity did not occur on this shift TRANSFERS: TOILET - SCORE: 0-UNK TRANSFERS: SHOWER: Activity did not occur on this shift TRANSFERS: SHOWER - SCORE: 0-UNK TRANSFERS: TUB: Activity did not occur on this shift TRANSFERS: TUB - SCORE: 0-UNK LOCOMOTION: WALK: LOCOMOTION: WALK - STEP 1: Does the patient need help from a person or device, or need extra time to walk 150 feet? Yes. LOCOMOTION: WALK - STEP 2: How much assistance does the patient require to walk a minimum of 150 feet? Only incidental help such as contact guarding or steadying LOCOMOTION: WALK - SCORE: 4-MIN LOCOMOTION: WHEELCHAIR: Activity did not occur on this shift LOCOMOTION: WHEELCHAIR - SCORE: 0-UNK LOCOMOTION: STAIRS: Activity did not occur on this shift LOCOMOTION: STAIRS - SCORE: 0-UNK COMPREHENSION: COMPREHENSION - SCORE: 0-UNK EXPRESSION EXPRESSION - SCORE: 0-UNK SOCIAL INTERACTION: SOCIAL INTERACTION - SCORE: 0-UNK PROBLEM SOLVING: PROBLEM SOLVING - SCORE: 0-UNK MEMORY: MEMORY - SCORE: 0-UNK SIGNATURE PANEL: The following modified sections: Transfers: Bed, Chair, Wheelchair - Score, Transfers: Toilet - Score , Locomotion: Walk - Score, Locomotion: Wheelchair - Score, Locomotion: Stairs - Score were [electron katt] signed by Cabrera Kelley PT on MonSep 24 2018 10:19:32 T-0600 (Central Standard Time)
--- NOTE | 2018-09-24 14:13 | FAST ---
SHIFT START DATE/TIME: 09/24/2018 07:00 (FEED MILL SUPERVISOR) SHIFT END DATE/TIME: 09/24/2018 19:00 (FEED MILL SUPERVISOR) NAME GISELLE TRUJILLO DATE OF : 1940 DATE OF ADMISSION: 09/21/2018 20:14 (FEED MILL SUPERVISOR) PHONE: AGE: 78 SSN# [id number] GENDER: Male ENCOUNTER PHYSICIAN: Dr. Yomi Campbell M.D. ADMISSION DIAGNOSIS: - Orthopaedic Disorders 08 - Unilateral Hip Fracture (08.11) right intertrochancteric proximal hip fx . right impacted fx involving the distal radial metaphysis a nd mild comminuted distal ulnar fx. EATING: EATING - STEP 1: Does the patient require the assistance of a person or device, or need extra time when eating? Yes. EATING - STEP 2: Does the patient require the assistance of a helper? Yes. EATING - STEP 3: Does the patient perform half or more of the eating tasks? Yes. EATING - STEP 4: Does the patient need only supervision, cuing, coaxing OR help to apply an orthosis OR help to cut fo od, open containers, pour liquids, or butter bread? Yes. EATING - SCORE: 5-SUP GROOMING: Comb/brush hair Oral care Wash, rinse, and dry face Wash, rinse, and dry hands GROOMING - STEP 1: Does the patient require the assistance of a person or device, or need extra time when grooming? Yes. GROOMING - STEP 2: Does the patient require the assistance of a helper? Yes. GROOMING - STEP 3: How much assistance does the patient require from the helper? Incidental touching assistance from the helper while grooming GROOMING - SCORE: 4-MIN GROOMING - COMMENTS: assisting pt BATHING: Activity did not occur on this shift BATHING - SCORE: 0-UNK DRESSING - UPPER BODY: Activity did not occur on this shift ARTICLES SCORE Total number of steps: 0 DRESSING - UPPER BODY - SCORE: 0-UNK DRESSING - UPPER BODY - COMMENTS: Pt will change during shower time with therapist DRESSING - LOWER BODY: Activity did not occur on this shift ARTICLES SCORE Total number of steps: 0 DRESSING - LOWER BODY - SCORE: 0-UNK DRESSING - LOWER BODY - COMMENTS: Pt will change during shower time with therapist TOILETING: TOILETING - STEP 1: Does the patient require the assistance of a person or device, or need extra time with toileting? Yes . TOILETING - STEP 2: Does the patient require the assistance of a helper? Yes. TOILETING - STEP 3: How much assistance does the patient require from the helper? Hands-on assistance from the helper TOILETING - STEP 4: Of the 3 tasks: 1) Adjusting clothing prior to use, 2) Cleansing of perineal area, 3) Adjusting clot robin after use; How many tasks does the patient perform WITHOUT assistance of the helper? Three tasks with steadying assistance from the helper TOILETING - SCORE: 4-MIN BLADDER MANAGEMENT: BLADDER MANAGEMENT - STEP 1: Does the patient control the bladder completely and intentionally without equipment or devices or med ications, and is always continent? No. BLADDER MANAGEMENT - STEP 2: Does the patient require the assistance of a helper? No, patient requires and independently uses an a ssistive device, such as a urinal, bedpan, bedside commode, catheter, absorbent pad, or collecting de vice BLADDER MANAGEMENT - SCORE: 6-LISA BLADDER MANAGEMENT - FREQUENCY OF ACCIDENTS: BLADDER MANAGEMENT(FA) - STEP 1: How many accidents has the patient had during the current shift? 0 BOWEL MANAGEMENT: Activity did not occur on this shift BOWEL MANAGEMENT - SCORE: 7-IND BOWEL MANAGEMENT - FREQUENCY OF ACCIDENTS: BOWEL MANAGEMENT(FA) - STEP 1: How many accidents has the patient had during the current shift? 0 TRANSFERS: BED, CHAIR, WHEELCHAIR: TRANSFERS: BED, CHAIR, WHEELCHAIR - STEP 1: Does the patient require assistance of a person or device, or need extra time with bed, chair, or whe elchair transfers? Yes. TRANSFERS: BED, CHAIR, WHEELCHAIR - STEP 2: Does the patient require the assistance of a helper? Yes. TRANSFERS: BED, CHAIR, WHEELCHAIR - STEP 3: How much assistance does the patient require from the helper? Steadying/guiding assistance TRANSFERS: BED, CHAIR, WHEELCHAIR - SCORE: 4-MIN TRANSFERS: TOILET: TRANSFERS: TOILET - STEP 1: Does the patient require the assistance of a person or device, or need extra time with toilet transfe rs? Yes. TRANSFERS: TOILET - STEP 2: Does the patient require the assistance of a helper? Yes. TRANSFERS: TOILET - STEP 3: How much assistance does the patient require from the helper? Only supervision, cuing, coaxing, OR he lp to set out transfer equipment or to lock brakes and/or lift foot rests TRANSFERS: TOILET - SCORE: 5-SUP TRANSFERS: SHOWER: Activity did not occur on this shift TRANSFERS: SHOWER - SCORE: 0-UNK TRANSFERS: TUB: Activity did not occur on this shift TRANSFERS: TUB - SCORE: 0-UNK LOCOMOTION: WALK: Activity did not occur on this shift LOCOMOTION: WALK - SCORE: 0-UNK LOCOMOTION: WHEELCHAIR: Activity did not occur on this shift LOCOMOTION: WHEELCHAIR - SCORE: 0-UNK COMPREHENSION: COMPREHENSION: TYPE: Both COMPREHENSION - STEP 1: Does the patient require help from a person or device, or need extra time to understand complex and a bstract ideas (such as current events, finances, discharge planning, medical issues, relationships, e tc)? No. COMPREHENSION - STEP 2: Does the patient need extra time, require an assistive device (such as glasses for visual comprehensi on or a hearing aid for auditory comprehension) or does s/he have mild difficulty understanding compl ex and abstract information? Yes. COMPREHENSION - SCORE: 6-LISA EXPRESSION EXPRESSION: TYPE: Both EXPRESSION - STEP 1: Does the patient require help from a person or device, or need extra time expressing complex and abst ract ideas (such as current events, finances, discharge planning, medical issues, relationships, etc) ? No. EXPRESSION - STEP 2: Does the patient need extra time, require an assistive device (such as augmentive communication syste m or a communication board), OR does s/he have mild difficulty expressing complex and abstract ideas (including mild dysarthria or mild word-find problems)? Yes. EXPRESSION - SCORE: 6-LISA SOCIAL INTERACTION: SOCIAL INTERACTION - STEP 1: Does the patient require a helper to interact with others in social and therapeutic situations? No. SOCIAL INTERACTION - STEP 2: Does the patient need extra time in social situations, OR does s/he interact with staff, other patien ts, and family members ONLY in structured environments, OR does s/he require medication for social in teraction? Yes, patient needs extra time SOCIAL INTERACTION - SCORE: 6-LISA PROBLEM SOLVING: PROBLEM SOLVING - STEP 1: Does the patient need help from a person or device, or need extra time to solve complex problems such as managing a checking account or confronting interpersonal problems? No. PROBLEM SOLVING - STEP 2: Does the patient require extra time to make decisions or solve problems, OR does s/he have slight dif ficulty reading, initiating, or self-correcting in unfamiliar situations? Yes, patient needs extra ti me. PROBLEM SOLVING - SCORE: 6-LISA MEMORY: MEMORY - STEP 1: Does the patient need help from a person or device, or need extra time to remember frequently encount ered people, daily routines, and executing requests? No. MEMORY - STEP 2: Does the patient have slight difficulty recognizing frequently encountered people, daily routines, or executing requests without the need for repetition or using self-initiated or environmental cues to remember? Yes. MEMORY - SCORE: 6-LISA SIGNATURE PANEL: The following modified sections: Eating - Score, Grooming - Score, Grooming - Comments:, Bathing - Sc ore, Dressing - Upper Body - Score, Dressing - Upper Body - Comments:, Dressing - Lower Body - Score, Dressing - Lower Body - Comments:, Toileting - Score, Bladder Management - Score, Bowel Management - Score, Transfers: Bed, Chair, Wheelchair - Score, Transfers: Toilet - Score, Transfers: Shower - Sco re, Transfers: Tub - Score, Locomotion: Walk - Score, Locomotion: Wheelchair - Score, Comprehension - Score, Expression - Score, Social Interaction - Score, Problem Solving - Score, Memory - Score were [electronically] signed by Sandra Mckeon C.N.A. on MonSep 24 2018 14:12:48 T-0600 (Central Standar d Time)
[2018-09-24] MEDS: RIVAROXABAN 20 MG TABLET PO SCH (17:00)
[2018-09-24] MEDS: TRAMADOL HCL 50 MG TAB PO PRN (17:57)
--- NOTE | 2018-09-24 18:51 | R.HP ---
FACILITY: [facility] ENCOUNTER DATE AND TIME: 09/24/2018 18:46 (PATTERNMAKER WOOD) MR#: [id number] NAME GISELLE TRUJILLO ADDRESS: [address] [place] [address]: [place]IP [id number] PHONE: DATE OF : 1940 AGE: 78 SSN# [id number] GENDER: Male DEXTERITY Right-handed MARITAL STATUS RACE White PRE-HOSPITAL LIVING SETTING 01 - Home (private home/apt. board/care, assisted living, long term, transitional living) PRE-HOSPITAL LIVING WITH Family/Relatives ENCOUNTER PHYSICIAN: Dr. Yomi Campbell M.D. REFERRING DOCTOR: DR. Kian Villa DATE OF ADMISSION: 09/21/2018 20:14 (PATTERNMAKER WOOD) REFERRING FACILITY [facility] HOME TYPE AND DETAILS: Type of home: single family house # of levels in the residence: 1 # of steps to enter the residence: 0 # of steps within the residence: 0 ADMISSION DIAGNOSIS: right intertrochancteric proximal hip fx right impacted fx involving the distal radial metaphysis and mild comminuted distal ulnar fx ONSET DATE: 09/17/2018 PRIMARY DIAGNOSIS-RELATED SURGERIES: Emergency Unilateral Hip Fracture - performed by Solomon Carter on SECONDARY/COMORBID DIAGNOSES (TIERED): - N/A Chronic atrial fibrillation (I48.2) hypertension dyslipidemia HISTORY OF PRESENT ILLNESS (HPI): Pt. is a 78 yo Right-handed white male. On 09/17/2018 he was admitted to [facility] and underwent emergency surgery for right intertrochancteric proximal hip fx (Unilateral Hip Fracture) by DR. Kian Villa. Pre-morbidly, Pt. was independent/mod-I in Self-Care, Sphincter Control, Transfers Control, Communica tion, Social Cognition, and Locomotion; and he had good Sphincter Control. Currently, he has deficits of Self-Care, Transfers Control, Endurance, Balance, Safety Awareness, Loc omotion, and Social Cognition. Pt. is now referred to [facility] for acute in-patient rehabilitation in order to maximize patient's functional independence in activities of daily living, strength, ROM, and mobi lity. Patient has realistic goal of being discharged at assistance level 6-Jane to reside at Home with Fam jose/Relatives. MEDICATION ALLERGIES: No Known Drug Allergies (NKDA) ENVIRONMENTAL ALLERGIES: - Substance Allergies None Known - Other Allergies None Known PAST MEDICAL HISTORY: Chronic atrial fibrillation (I48.2) dyslipidemia hypertension FAMILY HISTORY: Family history is not contributory. SOCIAL HISTORY: - Home Living Family/Relatives REVIEW OF SYSTEMS: - Gen No Chills Fatigue No Fever - Eyes No Double Vision No itchiness - ENMT No Difficulty Swallowing - CVS No Chest Discomfort No Chest Pain No Fatigue No Weight Gain - Resp No Cough No Shortness of Breath - GI Continent No Abdominal Pain No Constipation No Diarrhea - Continent No Kidney Pain No Painful Urination No Urinary Urgency - MSK Joint Pain Muscle Cramps No Stiffness - Skin No Itching No Rash No Suspicious Lesions - Neuro Coordination Difficulty No Difficulty with Concentration No Memory Loss No Seizures Weakness - Psych No Anxiety No Depression No HIV Exposure No Persistent Infections No Seasonal Allergies - Endo No Cold/Heat Intolerance No Excessive Hunger No Excessive Thirst No Excessive Urination PHYSICAL EXAM - Gen Alert and awake Lying in bed No apparent distress Oriented to: person, time, and place - Skin No breakdown No abnormalities - Eyes No abnormalities - ENMT No abnormalities - Neck No abnormalities - CVS RRR - Chest No abnormalities - Resp Clear to auscultation - Abd + bowel sounds - GI Soft Deferred - No abnormalities - Ext No significant edema. - MSK Right upper extremity in hard cast. - Neuro No focal deficits - Psych No abnormalities VITAL SIGNS Temperature: 98.3 F SBP/DBP: 122/57 Pulse: 75 Resp: 18 NURSING: - Shower allowing shower - Skin care per protocol PRECAUTIONS: - Posterior Hip Precaution No adduction across midline No external rotation No hip flexion >90 degrees No internal rotation No wheel chair propulsion - Weight Bearing Precaution WBAT right LE NWB right wrist ACTIVITIES OOB only with supervision FUNCTIONAL STATUS: - Self-Care A. Eating Ind Dion B. Grooming Ind Dion C. Bathing Ind modA D. Dressing - Upper Ind maxA E. Dressing - Lower Ind maxA F. Toileting Ind modA - Sphincter Control G: Bladder control Ind Ind H: Bowel control Ind Ind - Transfers Control I. Bed/Chair/Wheelchair Ind modA J. Toilet Ind modA K. Tub/Shower Ind modA - Locomotion L. Walk/Wheelchair (B) Ind maxA M. Stairs Ind ADNO - Communication N. Comprehension (B) Ind Jane O. Expression (B) Ind Jane - Social Cognition P. Social Interaction Ind Jane Q. Problem Solving Ind Jane R. Memory Ind sup - Endurance Fair - Balance Fair - Safety Awareness Fair CURRENT FUNC. DEFICITS: Self-Care, Transfers Control, Endurance, Balance, Safety Awareness, Locomotion, and Social Cognition ASSESSMENT: Pt. is a 78 yo Right-handed white male.On 09/17/2018 he was admitted to [facility] and underwent emergency surgery for right intertrochancteric proximal hip fx (Unilateral Hip Fra cture) by DR. Kian Villa.Pre-morbidly, Pt. was independent/mod-I in Self-Care, Sphincter Control, Transfers Control, Communication, Social Cognition, and Locomotion; and he had good Sphincter Control .Currently, he has deficits of Self-Care, Transfers Control, Endurance, Balance, Safety Awareness, Lo comotion, and Social Cognition.Pt. is now referred to [facility] for acute in- patient rehabilitation in order to maximize patient's functional independence in activities of daily living, strength, ROM, and mobility.- Rehab Goal Patient has realistic goal of being discharged at assistance level 6-Jane to reside at Home with Fam jose/Relatives. REHAB PLAN: - Physical Therapy Decreased range of motion - to improve, our physical therapists will perform initial evaluation of pt 's status upon admission and devise an individualized program for increasing patient's Range of Motio n. Gait dysfunction - to improve, our physical therapists will perform initial evaluation of pt's status upon admission and devise an individualized program for Gait Training, and Wheel Chair mobility Inability to transfer - to improve, our physical therapists will perform initial evaluation of pt's s tatus upon admission and devise an individualized program for Bed mobility Need for home safety evaluation - to improve, our physical therapists will perform initial evaluation of pt's status upon admission and devise an individualized program for Home Evaluation Need in caregiver upon discharge - to improve, our physical therapists will perform initial evaluatio n of pt's status upon admission and devise an individualized program for Caregiver Training New precaution - to improve, our physical therapists will perform initial evaluation of pt's status u radha admission and devise an individualized program for Patient precaution education Edema - to improve, our physical therapists will perform initial evaluation of pt's status upon admi ssion and devise an individualized program for Elevation Training, and Lymphedema Therapy Poor balance - to improve, our physical therapists will perform initial evaluation of pt's status upo n admission and devise an individualized program for Balance Training Poor endurance - to improve, our physical therapists will perform initial evaluation of pt's status u radha admission and devise an individualized program for Endurance Training Weakness - to improve, our physical therapists will perform initial evaluation of pt's status upon ad mission and devise an individualized program for Aquatic Therapy, Neuromuscular Reeducation, and Stre ngthening Achieving independence - to improve, our physical therapists will perform initial evaluation of pt's status upon admission and devise an individualized program for Community Reintegration Activities - Occupational Therapy ADL deficits - to improve, our occupation therapists will perform initial evaluation of pt's status u radha admission and devise an individualized program for Bathing, Bed mobility, Community Reintegration , Cooking, Dressing, Eating, Fine Motor Skills, Grooming, Homemaking, Kitchen Mobility, Laundry, Gianna ent Education, Safety Awareness, Splinting - Positioning, Transfers(Toilet, Tub, Shower), and Wheel C hair Management Cognitive deficits - to improve, our occupation therapists will perform initial evaluation of pt's st atus upon admission and devise an individualized program for Cognition - orientation Need for care taker - to improve, our occupation therapists will perform initial evaluation of pt's s tatus upon admission and devise an individualized program for Caregiver Training Weakness - to improve, our occupation therapists will perform initial evaluation of pt's status upon admission and devise an individualized program for Aquatic Therapy, Balance, Endurance, UE ROM, and U E strengthening MEDICAL PLAN: - Anterior Hip Precaution No abduction No active extension No adduction across midline No external rotation No hip flexion >90 degrees No internal rotation - Diet - Liquid Texture Start Regular - Tube Feed Start N/A - Diet Type Start Regular - Posterior Hip Precaution No adduction across midline No external rotation No hip flexion >90 degrees No internal rotation No wheel chair propulsion - Weight Bearing Precaution NWB right wrist WBAT right LE - Skin care per protocol - Diet - Solid Texture Regular - Shower shower DISCHARGE PLAN: - Estimated Length of Stay (days) 14. - Consensus on plan Discharge plan has been discussed with primary caregiver. Patient/Family is in agreement with the roque n. Primary caregiver is in agreement with the plan. - Patient/Family Goals Return home with assistance. - Planned Living Setting Upon Discharge Home, to live with Family/Relatives. SIGNATURE PANEL: (PATTERNMAKER WOOD)
--- NOTE | 2018-09-25 01:35 | FAST ---
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 Yomi Campbell M.D. ADMISSION DIAGNOSIS: - Orthopaedic Disorders 08 - Unilateral Hip Fracture (08.11) right intertrochancteric proximal hip fx . right impacted fx involving the distal radial metaphysis a nd mild comminuted distal ulnar fx. EATING: Activity did not occur on this shift EATING - SCORE: 0-UNK GROOMING: Wash, rinse, and dry hands GROOMING - STEP 1: Does the patient require the assistance of a person or device, or need extra time when grooming? Yes. GROOMING - STEP 2: Does the patient require the assistance of a helper? No. The patient only requires an assistive devic e, OR takes more than reasonable time to groom, OR there is a concern for safety as the patient groom s GROOMING - SCORE: 6-LISA BATHING: Activity did not occur on this shift BATHING - SCORE: 0-UNK DRESSING - UPPER BODY: Patient is not dressing in public clothing ARTICLES SCORE Total number of steps: 0 DRESSING - UPPER BODY - SCORE: 0-UNK DRESSING - LOWER BODY: Patient is not dressing in public clothing ARTICLES SCORE Total number of steps: 0 DRESSING - LOWER BODY - SCORE: 0-UNK TOILETING: TOILETING - STEP 1: Does the patient require the assistance of a person or device, or need extra time with toileting? Yes . TOILETING - STEP 2: Does the patient require the assistance of a helper? Yes. TOILETING - STEP 3: How much assistance does the patient require from the helper? Hands-on assistance from the helper TOILETING - STEP 4: Of the 3 tasks: 1) Adjusting clothing prior to use, 2) Cleansing of perineal area, 3) Adjusting clot robin after use; How many tasks does the patient perform WITHOUT assistance of the helper? Three tasks with steadying assistance from the helper TOILETING - SCORE: 4-MIN BLADDER MANAGEMENT: BLADDER MANAGEMENT - STEP 1: Does the patient control the bladder completely and intentionally without equipment or devices or med ications, and is always continent? No. BLADDER MANAGEMENT - STEP 2: Does the patient require the assistance of a helper? No, patient requires and independently uses an a ssistive device, such as a urinal, bedpan, bedside commode, catheter, absorbent pad, or collecting de vice BLADDER MANAGEMENT - SCORE: 6-LISA BOWEL MANAGEMENT: Activity did not occur on this shift BOWEL MANAGEMENT - SCORE: 7-IND TRANSFERS: BED, CHAIR, WHEELCHAIR: TRANSFERS: BED, CHAIR, WHEELCHAIR - STEP 1: Does the patient require assistance of a person or device, or need extra time with bed, chair, or whe elchair transfers? Yes. TRANSFERS: BED, CHAIR, WHEELCHAIR - STEP 2: Does the patient require the assistance of a helper? Yes. TRANSFERS: BED, CHAIR, WHEELCHAIR - STEP 3: How much assistance does the patient require from the helper? Lifting of the legs TRANSFERS: BED, CHAIR, WHEELCHAIR - STEP 4: How many legs does the patient require the helper to lift? both legs TRANSFERS: BED, CHAIR, WHEELCHAIR - SCORE: 3-MOD TRANSFERS: TOILET: TRANSFERS: TOILET - STEP 1: Does the patient require the assistance of a person or device, or need extra time with toilet transfe rs? Yes. TRANSFERS: TOILET - STEP 2: Does the patient require the assistance of a helper? Yes. TRANSFERS: TOILET - STEP 3: How much assistance does the patient require from the helper? Only supervision, cuing, coaxing, OR he lp to set out transfer equipment or to lock brakes and/or lift foot rests TRANSFERS: TOILET - SCORE: 5-SUP TRANSFERS: SHOWER: Activity did not occur on this shift TRANSFERS: SHOWER - SCORE: 0-UNK TRANSFERS: TUB: Activity did not occur on this shift TRANSFERS: TUB - SCORE: 0-UNK LOCOMOTION: WALK: Activity did not occur on this shift LOCOMOTION: WALK - SCORE: 0-UNK LOCOMOTION: WHEELCHAIR: Activity did not occur on this shift LOCOMOTION: WHEELCHAIR - SCORE: 0-UNK COMPREHENSION: COMPREHENSION: TYPE: Both COMPREHENSION - STEP 1: Does the patient require help from a person or device, or need extra time to understand complex and a bstract ideas (such as current events, finances, discharge planning, medical issues, relationships, e tc)? No. COMPREHENSION - STEP 2: Does the patient need extra time, require an assistive device (such as glasses for visual comprehensi on or a hearing aid for auditory comprehension) or does s/he have mild difficulty understanding compl ex and abstract information? Yes. COMPREHENSION - SCORE: 6-LISA EXPRESSION EXPRESSION: TYPE: Both EXPRESSION - STEP 1: Does the patient require help from a person or device, or need extra time expressing complex and abst ract ideas (such as current events, finances, discharge planning, medical issues, relationships, etc) ? No. EXPRESSION - STEP 2: Does the patient need extra time, require an assistive device (such as augmentive communication syste m or a communication board), OR does s/he have mild difficulty expressing complex and abstract ideas (including mild dysarthria or mild word-find problems)? No. EXPRESSION - SCORE: 7-IND SOCIAL INTERACTION: SOCIAL INTERACTION - STEP 1: Does the patient require a helper to interact with others in social and therapeutic situations? No. SOCIAL INTERACTION - STEP 2: Does the patient need extra time in social situations, OR does s/he interact with staff, other patien ts, and family members ONLY in structured environments, OR does s/he require medication for social in teraction? Yes, patient needs extra time SOCIAL INTERACTION - SCORE: 6-LISA PROBLEM SOLVING: PROBLEM SOLVING - STEP 1: Does the patient need help from a person or device, or need extra time to solve complex problems such as managing a checking account or confronting interpersonal problems? No. PROBLEM SOLVING - STEP 2: Does the patient require extra time to make decisions or solve problems, OR does s/he have slight dif ficulty reading, initiating, or self-correcting in unfamiliar situations? Yes, patient needs extra ti me. PROBLEM SOLVING - SCORE: 6-LISA MEMORY: MEMORY - STEP 1: Does the patient need help from a person or device, or need extra time to remember frequently encount ered people, daily routines, and executing requests? No. MEMORY - STEP 2: Does the patient have slight difficulty recognizing frequently encountered people, daily routines, or executing requests without the need for repetition or using self-initiated or environmental cues to remember? No. MEMORY - SCORE: 7-IND SIGNATURE PANEL: The following modified sections: Eating - Score, Grooming - Score, Dressing - Upper Body - Score, Sebastien ssing - Lower Body - Score, Toileting - Score, Bladder Management - Score, Bowel Management - Score, Transfers: Bed, Chair, Wheelchair - Score, Transfers: Toilet - Score, Transfers: Shower - Score, Horta sfers: Tub - Score, Locomotion: Walk - Score, Locomotion: Wheelchair - Score, Comprehension - Score, Expression - Score, Social Interaction - Score, Problem Solving - Score, Memory - Score were [electro nically] signed by Oliva Ovalle CNA on MonSep 25 2018 01:35:08 GMT-0600 (Central Standard Time)
[2018-09-25] MEDS: HYDROCODONE/APAP 7.5/325 MG TAB PO PRN ×3 (08:20→21:29)
[2018-09-25] MEDS: FERROUS SULFATE 325 MG TAB PO SCH (08:20)
[2018-09-25] MEDS: NEBIVOLOL HCL 20 MG TABLET PO SCH (08:21)
[2018-09-25] MEDS: FE SULF/FA/VIT B COMP & C TAB PO SCH (08:21)
[2018-09-25] MEDS: ASCORBIC ACID 500 MG TABLET PO SCH (08:21)
[2018-09-25] MEDS: DOCUSATE NA 100 MG CAP PO SCH (08:21)
[2018-09-25] MEDS: ROSUVASTATIN 10 MG TAB PO SCH (08:22)
[2018-09-25] MEDS: PROMOD 30 ML DOSE PO SCH ×2 (08:23→21:29)
[2018-09-25] MEDS: TRAMADOL HCL 50 MG TAB PO PRN (12:07)
--- NOTE | 2018-09-25 14:53 | FAST ---
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 Yomi Campbell M.D. ADMISSION DIAGNOSIS: - Orthopaedic Disorders 08 - Unilateral Hip Fracture (08.11) right intertrochancteric proximal hip fx . right impacted fx involving the distal radial metaphysis a nd mild comminuted distal ulnar fx. EATING: EATING - STEP 1: Does the patient require the assistance of a person or device, or need extra time when eating? Yes. EATING - STEP 2: Does the patient require the assistance of a helper? Yes. EATING - STEP 3: Does the patient perform half or more of the eating tasks? Yes. EATING - STEP 4: Does the patient need only supervision, cuing, coaxing OR help to apply an orthosis OR help to cut fo od, open containers, pour liquids, or butter bread? Yes. EATING - SCORE: 5-SUP GROOMING: Comb/brush hair Oral care Wash, rinse, and dry face Wash, rinse, and dry hands GROOMING - STEP 1: Does the patient require the assistance of a person or device, or need extra time when grooming? Yes. GROOMING - STEP 2: Does the patient require the assistance of a helper? Yes. GROOMING - STEP 3: How much assistance does the patient require from the helper? Cuing, coaxing, instructions, or encour agement for completion of grooming GROOMING - SCORE: 5-SUP BATHING: Activity did not occur on this shift BATHING - SCORE: 0-UNK DRESSING - UPPER BODY: Activity did not occur on this shift T-shirt/pullover shirt (four steps) ARTICLES SCORE Total number of steps: 4 DRESSING - UPPER BODY - SCORE: 0-UNK DRESSING - UPPER BODY - COMMENTS: assisted pt with dressing DRESSING - LOWER BODY: Activity did not occur on this shift ARTICLES SCORE Total number of steps: 0 DRESSING - LOWER BODY - SCORE: 0-UNK DRESSING - LOWER BODY - COMMENTS: assisted pt with dressing TOILETING: TOILETING - STEP 1: Does the patient require the assistance of a person or device, or need extra time with toileting? Yes . TOILETING - STEP 2: Does the patient require the assistance of a helper? Yes. TOILETING - STEP 3: How much assistance does the patient require from the helper? Hands-on assistance from the helper TOILETING - STEP 4: Of the 3 tasks: 1) Adjusting clothing prior to use, 2) Cleansing of perineal area, 3) Adjusting clot robin after use; How many tasks does the patient perform WITHOUT assistance of the helper? Three tasks with steadying assistance from the helper TOILETING - SCORE: 4-MIN BLADDER MANAGEMENT: BLADDER MANAGEMENT - STEP 1: Does the patient control the bladder completely and intentionally without equipment or devices or med ications, and is always continent? No. BLADDER MANAGEMENT - STEP 2: Does the patient require the assistance of a helper? No, patient requires and independently uses an a ssistive device, such as a urinal, bedpan, bedside commode, catheter, absorbent pad, or collecting de vice BLADDER MANAGEMENT - SCORE: 6-LISA BLADDER MANAGEMENT - FREQUENCY OF ACCIDENTS: BLADDER MANAGEMENT(FA) - STEP 1: How many accidents has the patient had during the current shift? 0 BOWEL MANAGEMENT: Activity did not occur on this shift BOWEL MANAGEMENT - SCORE: 7-IND BOWEL MANAGEMENT - FREQUENCY OF ACCIDENTS: BOWEL MANAGEMENT(FA) - STEP 1: How many accidents has the patient had during the current shift? 0 TRANSFERS: BED, CHAIR, WHEELCHAIR: TRANSFERS: BED, CHAIR, WHEELCHAIR - STEP 1: Does the patient require assistance of a person or device, or need extra time with bed, chair, or whe elchair transfers? Yes. TRANSFERS: BED, CHAIR, WHEELCHAIR - STEP 2: Does the patient require the assistance of a helper? Yes. TRANSFERS: BED, CHAIR, WHEELCHAIR - STEP 3: How much assistance does the patient require from the helper? Steadying/guiding assistance TRANSFERS: BED, CHAIR, WHEELCHAIR - SCORE: 4-MIN TRANSFERS: TOILET: TRANSFERS: TOILET - STEP 1: Does the patient require the assistance of a person or device, or need extra time with toilet transfe rs? Yes. TRANSFERS: TOILET - STEP 2: Does the patient require the assistance of a helper? Yes. TRANSFERS: TOILET - STEP 3: How much assistance does the patient require from the helper? Only supervision, cuing, coaxing, OR he lp to set out transfer equipment or to lock brakes and/or lift foot rests TRANSFERS: TOILET - SCORE: 5-SUP TRANSFERS: SHOWER: Activity did not occur on this shift TRANSFERS: SHOWER - SCORE: 0-UNK TRANSFERS: TUB: Activity did not occur on this shift TRANSFERS: TUB - SCORE: 0-UNK LOCOMOTION: WALK: Activity did not occur on this shift LOCOMOTION: WALK - SCORE: 0-UNK LOCOMOTION: WHEELCHAIR: Activity did not occur on this shift LOCOMOTION: WHEELCHAIR - SCORE: 0-UNK COMPREHENSION: COMPREHENSION: TYPE: Both COMPREHENSION - STEP 1: Does the patient require help from a person or device, or need extra time to understand complex and a bstract ideas (such as current events, finances, discharge planning, medical issues, relationships, e tc)? No. COMPREHENSION - STEP 2: Does the patient need extra time, require an assistive device (such as glasses for visual comprehensi on or a hearing aid for auditory comprehension) or does s/he have mild difficulty understanding compl ex and abstract information? Yes. COMPREHENSION - SCORE: 6-LISA EXPRESSION EXPRESSION: TYPE: Both EXPRESSION - STEP 1: Does the patient require help from a person or device, or need extra time expressing complex and abst ract ideas (such as current events, finances, discharge planning, medical issues, relationships, etc) ? No. EXPRESSION - STEP 2: Does the patient need extra time, require an assistive device (such as augmentive communication syste m or a communication board), OR does s/he have mild difficulty expressing complex and abstract ideas (including mild dysarthria or mild word-find problems)? Yes. EXPRESSION - SCORE: 6-LISA SOCIAL INTERACTION: SOCIAL INTERACTION - STEP 1: Does the patient require a helper to interact with others in social and therapeutic situations? No. SOCIAL INTERACTION - STEP 2: Does the patient need extra time in social situations, OR does s/he interact with staff, other patien ts, and family members ONLY in structured environments, OR does s/he require medication for social in teraction? Yes, patient needs extra time SOCIAL INTERACTION - SCORE: 6-LISA PROBLEM SOLVING: PROBLEM SOLVING - STEP 1: Does the patient need help from a person or device, or need extra time to solve complex problems such as managing a checking account or confronting interpersonal problems? No. PROBLEM SOLVING - STEP 2: Does the patient require extra time to make decisions or solve problems, OR does s/he have slight dif ficulty reading, initiating, or self-correcting in unfamiliar situations? Yes, patient needs extra ti me. PROBLEM SOLVING - SCORE: 6-LISA MEMORY: MEMORY - STEP 1: Does the patient need help from a person or device, or need extra time to remember frequently encount ered people, daily routines, and executing requests? No. MEMORY - STEP 2: Does the patient have slight difficulty recognizing frequently encountered people, daily routines, or executing requests without the need for repetition or using self-initiated or environmental cues to remember? Yes. MEMORY - SCORE: 6-LISA SIGNATURE PANEL: The following modified sections: Eating - Score, Grooming - Score, Bathing - Score, Dressing - Upper Body - Score, Dressing - Upper Body - Comments:, Dressing - Lower Body - Score, Dressing - Lower Body - Comments:, Toileting - Score, Bladder Management - Score, Bowel Management - Score, Transfers: Bed , Chair, Wheelchair - Score, Transfers: Toilet - Score, Transfers: Shower - Score, Transfers: Tub - S core, Locomotion: Walk - Score, Locomotion: Wheelchair - Score, Comprehension - Score, Expression - S core, Social Interaction - Score, Problem Solving - Score, Memory - Score were [electronically] slime d by Sandra Mckeon [email or web address] on MonSep 25 2018 14:52:31 GMT-0600 (Central Standard Time)
--- NOTE | 2018-09-25 15:41 | FAST ---
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 Yomi Campbell M.D. ADMISSION DIAGNOSIS: - Orthopaedic Disorders 08 - Unilateral Hip Fracture (08.11) right intertrochancteric proximal hip fx . right impacted fx involving the distal radial metaphysis a nd mild comminuted distal ulnar fx. EATING: Activity did not occur on this shift EATING - SCORE: 0-UNK GROOMING: Activity did not occur on this shift GROOMING - SCORE: 0-UNK BATHING: Activity did not occur on this shift BATHING - SCORE: 0-UNK DRESSING - UPPER BODY: Activity did not occur on this shift Patient is not dressing in public clothing ARTICLES SCORE Total number of steps: 0 DRESSING - UPPER BODY - SCORE: 0-UNK DRESSING - LOWER BODY: Activity did not occur on this shift Patient is not dressing in public clothing ARTICLES SCORE Total number of steps: 0 DRESSING - LOWER BODY - SCORE: 0-UNK TOILETING: Activity did not occur on this shift TOILETING - SCORE: 0-UNK BLADDER MANAGEMENT: Activity did not occur on this shift BLADDER MANAGEMENT - SCORE: 7-IND BOWEL MANAGEMENT: Activity did not occur on this shift BOWEL MANAGEMENT - SCORE: 7-IND TRANSFERS: BED, CHAIR, WHEELCHAIR: TRANSFERS: BED, CHAIR, WHEELCHAIR - STEP 1: Does the patient require assistance of a person or device, or need extra time with bed, chair, or whe elchair transfers? Yes. TRANSFERS: BED, CHAIR, WHEELCHAIR - STEP 2: Does the patient require the assistance of a helper? Yes. TRANSFERS: BED, CHAIR, WHEELCHAIR - STEP 3: How much assistance does the patient require from the helper? Only supervision TRANSFERS: BED, CHAIR, WHEELCHAIR - SCORE: 5-SUP TRANSFERS: TOILET: Activity did not occur on this shift TRANSFERS: TOILET - SCORE: 0-UNK TRANSFERS: SHOWER: Activity did not occur on this shift TRANSFERS: SHOWER - SCORE: 0-UNK TRANSFERS: TUB: Activity did not occur on this shift TRANSFERS: TUB - SCORE: 0-UNK LOCOMOTION: WALK: LOCOMOTION: WALK - STEP 1: Does the patient need help from a person or device, or need extra time to walk 150 feet? Yes. LOCOMOTION: WALK - STEP 2: How much assistance does the patient require to walk a minimum of 150 feet? Only supervision, cuing, or coaxing LOCOMOTION: WALK - SCORE: 5-SUP LOCOMOTION: WHEELCHAIR: Activity did not occur on this shift LOCOMOTION: WHEELCHAIR - SCORE: 0-UNK LOCOMOTION: STAIRS: LOCOMOTION: STAIRS - STEP 1: Does the patient need help to go up and down 12 to 14 stairs? Yes. LOCOMOTION: STAIRS - STEP 2: How much assistance does the patient need from the helper to go a minimum of 12 to 14 stairs? Only in cidental help such as contact guarding or steadying LOCOMOTION: STAIRS - SCORE: 4-MIN COMPREHENSION: COMPREHENSION - SCORE: 0-UNK EXPRESSION EXPRESSION - SCORE: 0-UNK SOCIAL INTERACTION: SOCIAL INTERACTION - SCORE: 0-UNK PROBLEM SOLVING: PROBLEM SOLVING - SCORE: 0-UNK MEMORY: MEMORY - SCORE: 0-UNK SIGNATURE PANEL: The following modified sections: Transfers: Bed, Chair, Wheelchair - Score, Transfers: Toilet - Score , Locomotion: Walk - Score, Locomotion: Wheelchair - Score, Locomotion: Stairs - Score were [electron ically] signed by Cabrera Kelley PT on MonSep 25 2018 15:40:07 GMT-0600 (Central Standard Time)
[2018-09-25] MEDS: RIVAROXABAN 20 MG TABLET PO SCH (16:28)
--- NOTE | 2018-09-25 18:25 | R.PN ---
ENCOUNTER DATE AND TIME: 09/25/2018 18:22 (UX LEAD) NAME GISELLE TRUJILLO DATE OF : 1940 DATE OF ADMISSION: 09/21/2018 20:14 (UX LEAD) right intertrochancteric proximal hip fx right impacted fx involving the distal radial metaphysis and mild comminuted distal ulnar fxCHIEF COMPLAINT: Right hip fracture. SUBJECTIVE: Pt denied any depression. Pt denied any Shortness of Breath. Ambulated 750' with standby assistance using a left hemiwalker. Up and down 15 steps with contact gua rd assistance using left handrail. VITAL SIGNS Temperature: 98.0 F SBP/DBP: 150/70 Pulse: 58 Resp: 16 MEDICATION ALLERGIES: No Known Drug Allergies (NKDA) ENVIRONMENTAL ALLERGIES: - Substance Allergies None Known - Other Allergies None Known NURSING: - Shower allowing shower - Skin care per protocol PRECAUTIONS: - Posterior Hip Precaution No adduction across midline No external rotation No hip flexion >90 degrees No internal rotation No wheel chair propulsion - Weight Bearing Precaution WBAT right LE NWB right wrist ACTIVITIES OOB only with supervision THERAPIES: - Occupational Therapy Evaluate and Treat. - Physical Therapy Evaluate and Treat. PHYSICAL EXAM - Gen Alert and awake Lying in bed No apparent distress Oriented to: person, time, and place - Skin No breakdown No abnormalities - Eyes No abnormalities - ENMT No abnormalities - Neck No abnormalities - CVS RRR - Chest No abnormalities - Resp Clear to auscultation - Abd + bowel sounds - GI Soft Deferred - No abnormalities - Ext No significant edema. - MSK Right upper extremity in hard cast. - Neuro No focal deficits - Psych No abnormalities ASSESSMENT: Pt. is a 78 yo Right-handed white male.On 09/17/2018 he was admitted to [facility] and underwent emergency surgery for right intertrochancteric proximal hip fx (Unilateral Hip Fra cture) by DR. Kian Villa.Pre-morbidly, Pt. was independent/mod-I in Self-Care, Sphincter Control, Transfers Control, Communication, Social Cognition, and Locomotion; and he had good Sphincter Control .Currently, he has deficits of Self-Care, Transfers Control, Endurance, Balance, Safety Awareness, Lo comotion, and Social Cognition.Pt. is now referred to [facility] for acute in- patient rehabilitation in order to maximize patient's functional independence in activities of daily living, strength, ROM, and mobility.- Rehab Goal Patient has realistic goal of being discharged at assistance level 6-Jane to reside at Home with Fam jose/Relatives. MDM/PLAN: - Physical Therapy Decreased range of motion - to improve, our physical therapists will perform initial evaluation of p t's status upon admission and devise an individualized program for increasing patient's Range of Carmelo on. Gait dysfunction - to improve, our physical therapists will perform initial evaluation of pt's statu s upon admission and devise an individualized program for Gait Training, and Wheel Chair mobility Inability to transfer - to improve, our physical therapists will perform initial evaluation of pt's status upon admission and devise an individualized program for Bed mobility Need for home safety evaluation - to improve, our physical therapists will perform initial evaluatio n of pt's status upon admission and devise an individualized program for Home Evaluation Need in caregiver upon discharge - to improve, our physical therapists will perform initial evaluati on of pt's status upon admission and devise an individualized program for Caregiver Training New precaution - to improve, our physical therapists will perform initial evaluation of pt's status upon admission and devise an individualized program for Patient precaution education Edema - to improve, our physical therapists will perform initial evaluation of pt's status upon admis milagro and devise an individualized program for Elevation Training, and Lymphedema Therapy Poor balance - to improve, our physical therapists will perform initial evaluation of pt's status up on admission and devise an individualized program for Balance Training Poor endurance - to improve, our physical therapists will perform initial evaluation of pt's status upon admission and devise an individualized program for Endurance Training Weakness - to improve, our physical therapists will perform initial evaluation of pt's status upon a dmission and devise an individualized program for Aquatic Therapy, Neuromuscular Reeducation, and Str engthening Achieving independence - to improve, our physical therapists will perform initial evaluation of pt's status upon admission and devise an individualized program for Community Reintegration Activities - Occupational Therapy ADL deficits - to improve, our occupation therapists will perform initial evaluation of pt's status upon admission and devise an individualized program for Bathing, Bed mobility, Community Reintegratio n, Cooking, Dressing, Eating, Fine Motor Skills, Grooming, Homemaking, Kitchen Mobility, Laundry, Pat ient Education, Safety Awareness, Splinting - Positioning, Transfers(Toilet, Tub, Shower), and Wheel Chair Management Cognitive deficits - to improve, our occupation therapists will perform initial evaluation of pt's s tatus upon admission and devise an individualized program for Cognition - orientation Need for care team coordinator scheduler - to improve, our occupation therapists will perform initial evaluation of pt's status upon admission and devise an individualized program for Caregiver Training Weakness - to improve, our occupation therapists will perform initial evaluation of pt's status upon admission and devise an individualized program for Aquatic Therapy, Balance, Endurance, UE ROM, and UE strengthening - Anterior Hip Precaution No abduction No active extension No adduction across midline No external rotation No hip flexion >90 degrees No internal rotation - Diet - Liquid Texture Continue Regular - Tube Feed Continue N/A - Diet Type Continue Regular - Posterior Hip Precaution No adduction across midline No external rotation No hip flexion >90 degrees No internal rotation No wheel chair propulsion - Weight Bearing Precaution NWB right wrist WBAT right LE - Skin care per protocol - Diet - Solid Texture Continue Regular - Shower allowing shower FUNCTIONAL STATUS: UPDATED AT WEEKLY TEAM CONFERENCE - Bladder Same accident frequency: 7-Ind - No accidents in the past 7 days - Bowel Same accident frequency: 7-Ind - No accidents in the past 7 days - Walking Same score based on distance walked: 0(N/A) FUNCTIONAL STATUS: - Self-Care A. Eating Dion B. Grooming Dion C. Bathing modA D. Dressing - Upper maxA E. Dressing - Lower maxA F. Toileting modA - Sphincter Control G: Bladder control Ind H: Bowel control Ind - Transfers Control I. Bed/Chair/Wheelchair modA J. Toilet modA K. Tub/Shower modA - Locomotion L. Walk/Wheelchair (B) maxA M. Stairs ADNO - Communication N. Comprehension (B) Jane O. Expression (B) Jane - Social Cognition P. Social Interaction Jane Q. Problem Solving Jane R. Memory sup - Endurance Fair - Balance Fair - Safety Awareness Fair CURRENT FUNC. DEFICITS: Self-Care, Transfers Control, Endurance, Balance, Safety Awareness, Locomotion, and Social Cognition SIGNATURE PANEL: (RUST)
--- NOTE | 2018-09-26 00:50 | FAST ---
SHIFT START DATE/TIME: 09/25/2018 19:00 (TAR AND AMMONIA PUMP OPERATOR) SHIFT END DATE/TIME: 09/26/2018 07:00 (TAR AND AMMONIA PUMP OPERATOR) NAME GISELLE TRUJILLO DATE OF : 1940 DATE OF ADMISSION: 09/21/2018 20:14 (TAR AND AMMONIA PUMP OPERATOR) PHONE: AGE: 78 SSN# [id number] GENDER: Male ENCOUNTER PHYSICIAN: Dr. Yomi Campbell M.D. ADMISSION DIAGNOSIS: - Orthopaedic Disorders 08 - Unilateral Hip Fracture (08.11) right intertrochancteric proximal hip fx . right impacted fx involving the distal radial metaphysis a nd mild comminuted distal ulnar fx. EATING: Activity did not occur on this shift EATING - SCORE: 0-UNK GROOMING: Oral care Wash, rinse, and dry hands GROOMING - STEP 1: Does the patient require the assistance of a person or device, or need extra time when grooming? Yes. GROOMING - STEP 2: Does the patient require the assistance of a helper? No. The patient only requires an assistive devic e, OR takes more than reasonable time to groom, OR there is a concern for safety as the patient groom s GROOMING - SCORE: 6-LISA BATHING: Activity did not occur on this shift BATHING - SCORE: 0-UNK DRESSING - UPPER BODY: Patient is not dressing in public clothing ARTICLES SCORE Total number of steps: 0 DRESSING - UPPER BODY - SCORE: 0-UNK DRESSING - LOWER BODY: Patient is not dressing in public clothing ARTICLES SCORE Total number of steps: 0 DRESSING - LOWER BODY - SCORE: 0-UNK TOILETING: TOILETING - STEP 1: Does the patient require the assistance of a person or device, or need extra time with toileting? Yes . TOILETING - STEP 2: Does the patient require the assistance of a helper? Yes. TOILETING - STEP 3: How much assistance does the patient require from the helper? Only supervision TOILETING - SCORE: 5-SUP BLADDER MANAGEMENT: BLADDER MANAGEMENT - STEP 1: Does the patient control the bladder completely and intentionally without equipment or devices or med ications, and is always continent? No. BLADDER MANAGEMENT - STEP 2: Does the patient require the assistance of a helper? No, patient requires and independently uses an a ssistive device, such as a urinal, bedpan, bedside commode, catheter, absorbent pad, or collecting de vice BLADDER MANAGEMENT - SCORE: 6-LISA BOWEL MANAGEMENT: Activity did not occur on this shift BOWEL MANAGEMENT - SCORE: 7-IND TRANSFERS: BED, CHAIR, WHEELCHAIR: TRANSFERS: BED, CHAIR, WHEELCHAIR - STEP 1: Does the patient require assistance of a person or device, or need extra time with bed, chair, or whe elchair transfers? Yes. TRANSFERS: BED, CHAIR, WHEELCHAIR - STEP 2: Does the patient require the assistance of a helper? Yes. TRANSFERS: BED, CHAIR, WHEELCHAIR - STEP 3: How much assistance does the patient require from the helper? Lifting of the legs TRANSFERS: BED, CHAIR, WHEELCHAIR - STEP 4: How many legs does the patient require the helper to lift? both legs TRANSFERS: BED, CHAIR, WHEELCHAIR - SCORE: 3-MOD TRANSFERS: TOILET: TRANSFERS: TOILET - STEP 1: Does the patient require the assistance of a person or device, or need extra time with toilet transfe rs? Yes. TRANSFERS: TOILET - STEP 2: Does the patient require the assistance of a helper? Yes. TRANSFERS: TOILET - STEP 3: How much assistance does the patient require from the helper? Only supervision, cuing, coaxing, OR he lp to set out transfer equipment or to lock brakes and/or lift foot rests TRANSFERS: TOILET - SCORE: 5-SUP TRANSFERS: SHOWER: Activity did not occur on this shift TRANSFERS: SHOWER - SCORE: 0-UNK TRANSFERS: TUB: Activity did not occur on this shift TRANSFERS: TUB - SCORE: 0-UNK LOCOMOTION: WALK: Activity did not occur on this shift LOCOMOTION: WALK - SCORE: 0-UNK LOCOMOTION: WHEELCHAIR: Activity did not occur on this shift LOCOMOTION: WHEELCHAIR - SCORE: 0-UNK COMPREHENSION: COMPREHENSION: TYPE: Both COMPREHENSION - STEP 1: Does the patient require help from a person or device, or need extra time to understand complex and a bstract ideas (such as current events, finances, discharge planning, medical issues, relationships, e tc)? No. COMPREHENSION - STEP 2: Does the patient need extra time, require an assistive device (such as glasses for visual comprehensi on or a hearing aid for auditory comprehension) or does s/he have mild difficulty understanding compl ex and abstract information? Yes. COMPREHENSION - SCORE: 6-LISA EXPRESSION EXPRESSION: TYPE: Both EXPRESSION - STEP 1: Does the patient require help from a person or device, or need extra time expressing complex and abst ract ideas (such as current events, finances, discharge planning, medical issues, relationships, etc) ? No. EXPRESSION - STEP 2: Does the patient need extra time, require an assistive device (such as augmentive communication syste m or a communication board), OR does s/he have mild difficulty expressing complex and abstract ideas (including mild dysarthria or mild word-find problems)? No. EXPRESSION - SCORE: 7-IND SOCIAL INTERACTION: SOCIAL INTERACTION - STEP 1: Does the patient require a helper to interact with others in social and therapeutic situations? No. SOCIAL INTERACTION - STEP 2: Does the patient need extra time in social situations, OR does s/he interact with staff, other patien ts, and family members ONLY in structured environments, OR does s/he require medication for social in teraction? Yes, patient needs extra time SOCIAL INTERACTION - SCORE: 6-LISA PROBLEM SOLVING: PROBLEM SOLVING - STEP 1: Does the patient need help from a person or device, or need extra time to solve complex problems such as managing a checking account or confronting interpersonal problems? No. PROBLEM SOLVING - STEP 2: Does the patient require extra time to make decisions or solve problems, OR does s/he have slight dif ficulty reading, initiating, or self-correcting in unfamiliar situations? Yes, patient needs extra ti me. PROBLEM SOLVING - SCORE: 6-LISA MEMORY: MEMORY - STEP 1: Does the patient need help from a person or device, or need extra time to remember frequently encount ered people, daily routines, and executing requests? No. MEMORY - STEP 2: Does the patient have slight difficulty recognizing frequently encountered people, daily routines, or executing requests without the need for repetition or using self-initiated or environmental cues to remember? No. MEMORY - SCORE: 7-IND SIGNATURE PANEL: The following modified sections: Eating - Score, Grooming - Score, Dressing - Upper Body - Score, Sebastien ssing - Lower Body - Score, Toileting - Score, Bladder Management - Score, Bowel Management - Score, Transfers: Bed, Chair, Wheelchair - Score, Transfers: Toilet - Score, Transfers: Shower - Score, Horta sfers: Tub - Score, Locomotion: Walk - Score, Locomotion: Wheelchair - Score, Comprehension - Score, Expression - Score, Social Interaction - Score, Problem Solving - Score, Memory - Score were [electro nically] signed by Oliva Ovalle CNA on MonSep 26 2018 00:48:55 GMT-0600 (Central Standard Time)
[2018-09-26] MEDS: HYDROCODONE/APAP 7.5/325 MG TAB PO PRN ×3 (06:21→20:58)
[2018-09-26] MEDS: NEBIVOLOL HCL 20 MG TABLET PO SCH (08:34)
[2018-09-26] MEDS: FERROUS SULFATE 325 MG TAB PO SCH (08:35)
[2018-09-26] MEDS: DOCUSATE NA 100 MG CAP PO SCH (08:35)
[2018-09-26] MEDS: ASCORBIC ACID 500 MG TABLET PO SCH (08:35)
[2018-09-26] MEDS: FE SULF/FA/VIT B COMP & C TAB PO SCH (08:35)
[2018-09-26] MEDS: PROMOD 30 ML DOSE PO SCH ×2 (08:36→19:47)
--- NOTE | 2018-09-26 10:43 | FAST ---
SHIFT START DATE/TIME: 09/26/2018 07:00 (TRAINING MANAGER) SHIFT END DATE/TIME: 09/26/2018 19:00 (TRAINING MANAGER) NAME GISELLE TRUJILLO DATE OF : 1940 DATE OF ADMISSION: 09/21/2018 20:14 (TRAINING MANAGER) PHONE: AGE: 78 SSN# [id number] GENDER: Male ENCOUNTER PHYSICIAN: Dr. Yomi Campbell M.D. ADMISSION DIAGNOSIS: - Orthopaedic Disorders 08 - Unilateral Hip Fracture (08.11) right intertrochancteric proximal hip fx . right impacted fx involving the distal radial metaphysis a nd mild comminuted distal ulnar fx. EATING: EATING - STEP 1: Does the patient require the assistance of a person or device, or need extra time when eating? Yes. EATING - STEP 2: Does the patient require the assistance of a helper? Yes. EATING - STEP 3: Does the patient perform half or more of the eating tasks? Yes. EATING - STEP 4: Does the patient need only supervision, cuing, coaxing OR help to apply an orthosis OR help to cut fo od, open containers, pour liquids, or butter bread? Yes. EATING - SCORE: 5-SUP GROOMING: Comb/brush hair Oral care Wash, rinse, and dry face Wash, rinse, and dry hands GROOMING - STEP 1: Does the patient require the assistance of a person or device, or need extra time when grooming? No. GROOMING - SCORE: 7-IND BATHING: Activity did not occur on this shift BATHING - SCORE: 0-UNK DRESSING - UPPER BODY: Activity did not occur on this shift ARTICLES SCORE Total number of steps: 0 DRESSING - UPPER BODY - SCORE: 0-UNK DRESSING - LOWER BODY: Activity did not occur on this shift ARTICLES SCORE Total number of steps: 0 DRESSING - LOWER BODY - SCORE: 0-UNK TOILETING: TOILETING - STEP 1: Does the patient require the assistance of a person or device, or need extra time with toileting? Yes . TOILETING - STEP 2: Does the patient require the assistance of a helper? Yes. TOILETING - STEP 3: How much assistance does the patient require from the helper? Hands-on assistance from the helper TOILETING - STEP 4: Of the 3 tasks: 1) Adjusting clothing prior to use, 2) Cleansing of perineal area, 3) Adjusting clot robin after use; How many tasks does the patient perform WITHOUT assistance of the helper? Three tasks with steadying assistance from the helper TOILETING - SCORE: 4-MIN BLADDER MANAGEMENT: BLADDER MANAGEMENT - STEP 1: Does the patient control the bladder completely and intentionally without equipment or devices or med ications, and is always continent? No. BLADDER MANAGEMENT - STEP 2: Does the patient require the assistance of a helper? No, patient requires and independently uses an a ssistive device, such as a urinal, bedpan, bedside commode, catheter, absorbent pad, or collecting de vice BLADDER MANAGEMENT - SCORE: 6-LISA BOWEL MANAGEMENT: Activity did not occur on this shift BOWEL MANAGEMENT - SCORE: 7-IND TRANSFERS: BED, CHAIR, WHEELCHAIR: TRANSFERS: BED, CHAIR, WHEELCHAIR - STEP 1: Does the patient require assistance of a person or device, or need extra time with bed, chair, or whe elchair transfers? Yes. TRANSFERS: BED, CHAIR, WHEELCHAIR - STEP 2: Does the patient require the assistance of a helper? Yes. TRANSFERS: BED, CHAIR, WHEELCHAIR - STEP 3: How much assistance does the patient require from the helper? Steadying/guiding assistance TRANSFERS: BED, CHAIR, WHEELCHAIR - SCORE: 4-MIN TRANSFERS: TOILET: TRANSFERS: TOILET - STEP 1: Does the patient require the assistance of a person or device, or need extra time with toilet transfe rs? Yes. TRANSFERS: TOILET - STEP 2: Does the patient require the assistance of a helper? Yes. TRANSFERS: TOILET - STEP 3: How much assistance does the patient require from the helper? Only supervision, cuing, coaxing, OR he lp to set out transfer equipment or to lock brakes and/or lift foot rests TRANSFERS: TOILET - SCORE: 5-SUP TRANSFERS: SHOWER: Activity did not occur on this shift TRANSFERS: SHOWER - SCORE: 0-UNK TRANSFERS: TUB: Activity did not occur on this shift TRANSFERS: TUB - SCORE: 0-UNK LOCOMOTION: WALK: Activity did not occur on this shift LOCOMOTION: WALK - SCORE: 0-UNK LOCOMOTION: WHEELCHAIR: Activity did not occur on this shift LOCOMOTION: WHEELCHAIR - SCORE: 0-UNK COMPREHENSION: COMPREHENSION: TYPE: Both COMPREHENSION - STEP 1: Does the patient require help from a person or device, or need extra time to understand complex and a bstract ideas (such as current events, finances, discharge planning, medical issues, relationships, e tc)? No. COMPREHENSION - STEP 2: Does the patient need extra time, require an assistive device (such as glasses for visual comprehensi on or a hearing aid for auditory comprehension) or does s/he have mild difficulty understanding compl ex and abstract information? Yes. COMPREHENSION - SCORE: 6-LISA EXPRESSION EXPRESSION: TYPE: Both EXPRESSION - STEP 1: Does the patient require help from a person or device, or need extra time expressing complex and abst ract ideas (such as current events, finances, discharge planning, medical issues, relationships, etc) ? No. EXPRESSION - STEP 2: Does the patient need extra time, require an assistive device (such as augmentive communication syste m or a communication board), OR does s/he have mild difficulty expressing complex and abstract ideas (including mild dysarthria or mild word-find problems)? Yes. EXPRESSION - SCORE: 6-LISA SOCIAL INTERACTION: SOCIAL INTERACTION - STEP 1: Does the patient require a helper to interact with others in social and therapeutic situations? No. SOCIAL INTERACTION - STEP 2: Does the patient need extra time in social situations, OR does s/he interact with staff, other patien ts, and family members ONLY in structured environments, OR does s/he require medication for social in teraction? Yes, patient needs extra time SOCIAL INTERACTION - SCORE: 6-LISA PROBLEM SOLVING: PROBLEM SOLVING - STEP 1: Does the patient need help from a person or device, or need extra time to solve complex problems such as managing a checking account or confronting interpersonal problems? No. PROBLEM SOLVING - STEP 2: Does the patient require extra time to make decisions or solve problems, OR does s/he have slight dif ficulty reading, initiating, or self-correcting in unfamiliar situations? Yes, patient needs extra ti me. PROBLEM SOLVING - SCORE: 6-LISA MEMORY: MEMORY - STEP 1: Does the patient need help from a person or device, or need extra time to remember frequently encount ered people, daily routines, and executing requests? No. MEMORY - STEP 2: Does the patient have slight difficulty recognizing frequently encountered people, daily routines, or executing requests without the need for repetition or using self-initiated or environmental cues to remember? Yes. MEMORY - SCORE: 6-LISA SIGNATURE PANEL: The following modified sections: Eating - Score, Grooming - Score, Bathing - Score, Dressing - Upper Body - Score, Dressing - Lower Body - Score, Toileting - Score, Bladder Management - Score, Bowel Man agement - Score, Transfers: Bed, Chair, Wheelchair - Score, Transfers: Toilet - Score, Transfers: Neli wer - Score, Transfers: Tub - Score, Locomotion: Walk - Score, Locomotion: Wheelchair - Score, Compre hension - Score, Expression - Score, Social Interaction - Score, Problem Solving - Score, Memory - Sc ore were [electronically] signed by Didier Moore on MonSep 26 2018 10:42:17 GMT-0600 (Central Standard Time)
--- NOTE | 2018-09-26 14:56 | FAST ---
ENCOUNTER DATE AND TIME: 09/26/2018 08:00 (FLATWORK WASHER) NAME GISELLE TRUJILLO DATE OF : 1940 DATE OF ADMISSION: 09/21/2018 20:14 (FLATWORK WASHER) PHONE: AGE: 78 SSN# [id number] GENDER: Male ENCOUNTER PHYSICIAN: Dr. Yomi Campbell M.D. ADMISSION DIAGNOSIS: - Orthopaedic Disorders 08 - Unilateral Hip Fracture (08.11) right intertrochancteric proximal hip fx . right impacted fx involving the distal radial metaphysis a nd mild comminuted distal ulnar fx. EATING: Activity did not occur on this shift EATING - SCORE: 0-UNK GROOMING: Activity did not occur on this shift GROOMING - SCORE: 0-UNK BATHING: Activity did not occur on this shift BATHING - SCORE: 0-UNK DRESSING - UPPER BODY: Activity did not occur on this shift Patient is not dressing in public clothing ARTICLES SCORE Total number of steps: 0 DRESSING - UPPER BODY - SCORE: 0-UNK DRESSING - LOWER BODY: Activity did not occur on this shift Patient is not dressing in public clothing ARTICLES SCORE Total number of steps: 0 DRESSING - LOWER BODY - SCORE: 0-UNK TOILETING: Activity did not occur on this shift TOILETING - SCORE: 0-UNK BLADDER MANAGEMENT: Activity did not occur on this shift BLADDER MANAGEMENT - SCORE: 7-IND BOWEL MANAGEMENT: Activity did not occur on this shift BOWEL MANAGEMENT - SCORE: 7-IND TRANSFERS: BED, CHAIR, WHEELCHAIR: TRANSFERS: BED, CHAIR, WHEELCHAIR - STEP 1: Does the patient require assistance of a person or device, or need extra time with bed, chair, or whe elchair transfers? Yes. TRANSFERS: BED, CHAIR, WHEELCHAIR - STEP 2: Does the patient require the assistance of a helper? Yes. TRANSFERS: BED, CHAIR, WHEELCHAIR - STEP 3: How much assistance does the patient require from the helper? Only supervision TRANSFERS: BED, CHAIR, WHEELCHAIR - SCORE: 5-SUP TRANSFERS: TOILET: Activity did not occur on this shift TRANSFERS: TOILET - SCORE: 0-UNK TRANSFERS: SHOWER: Activity did not occur on this shift TRANSFERS: SHOWER - SCORE: 0-UNK TRANSFERS: TUB: Activity did not occur on this shift TRANSFERS: TUB - SCORE: 0-UNK LOCOMOTION: WALK: LOCOMOTION: WALK - STEP 1: Does the patient need help from a person or device, or need extra time to walk 150 feet? Yes. LOCOMOTION: WALK - STEP 2: How much assistance does the patient require to walk a minimum of 150 feet? Only supervision, cuing, or coaxing LOCOMOTION: WALK - SCORE: 5-SUP LOCOMOTION: WHEELCHAIR: LOCOMOTION: WHEELCHAIR - STEP 1: Does the patient need help to go 150 feet in a wheelchair? Yes. LOCOMOTION: WHEELCHAIR - STEP 2: How much assistance does the patient need from the helper? Only supervision, cuing, or coaxing LOCOMOTION: WHEELCHAIR - SCORE: 5-SUP LOCOMOTION: STAIRS: LOCOMOTION: STAIRS - STEP 1: Does the patient need help to go up and down 12 to 14 stairs? Yes. LOCOMOTION: STAIRS - STEP 2: How much assistance does the patient need from the helper to go a minimum of 12 to 14 stairs? Only in cidental help such as contact guarding or steadying LOCOMOTION: STAIRS - SCORE: 4-MIN COMPREHENSION: COMPREHENSION - SCORE: 0-UNK EXPRESSION EXPRESSION - SCORE: 0-UNK SOCIAL INTERACTION: SOCIAL INTERACTION - SCORE: 0-UNK PROBLEM SOLVING: PROBLEM SOLVING - SCORE: 0-UNK MEMORY: MEMORY - SCORE: 0-UNK SIGNATURE PANEL: The following modified sections: Transfers: Bed, Chair, Wheelchair - Score, Transfers: Toilet - Score , Locomotion: Walk - Score, Locomotion: Wheelchair - Score, Locomotion: Stairs - Score were [brian bolivar] signed by Roby Miller PTA on MonSep 26 2018 14:56:23 GMT-0600 (Central Standard Time)
[2018-09-26] MEDS: RIVAROXABAN 20 MG TABLET PO SCH (17:29)
--- NOTE | 2018-09-26 18:12 | R.PN ---
ENCOUNTER DATE AND TIME: 09/26/2018 18:10 (CLASS A REGIONAL DRIVERS) NAME GISELLE TRUJILLO DATE OF : 1940 DATE OF ADMISSION: 09/21/2018 20:14 (CLASS A REGIONAL DRIVERS) right intertrochancteric proximal hip fx right impacted fx involving the distal radial metaphysis and mild comminuted distal ulnar fxCHIEF COMPLAINT: Right hip fracture. SUBJECTIVE: Pt denied any depression. Pt denied any Shortness of Breath. Ambulated 750' with standby assistance using a left hemiwalker. Up and down 15 steps with contact gua rd assistance using left handrail. VITAL SIGNS Temperature: 98.0 F SBP/DBP: 143/65 Pulse: 64 Resp: 16 MEDICATION ALLERGIES: No Known Drug Allergies (NKDA) ENVIRONMENTAL ALLERGIES: - Substance Allergies None Known - Other Allergies None Known NURSING: - Shower allowing shower - Skin care per protocol PRECAUTIONS: - Posterior Hip Precaution No adduction across midline No external rotation No hip flexion >90 degrees No internal rotation No wheel chair propulsion - Weight Bearing Precaution WBAT right LE NWB right wrist ACTIVITIES OOB only with supervision THERAPIES: - Occupational Therapy Evaluate and Treat. - Physical Therapy Evaluate and Treat. PHYSICAL EXAM - Gen Alert and awake Lying in bed No apparent distress Oriented to: person, time, and place - Skin No breakdown No abnormalities - Eyes No abnormalities - ENMT No abnormalities - Neck No abnormalities - CVS RRR - Chest No abnormalities - Resp Clear to auscultation - Abd + bowel sounds - GI Soft Deferred - No abnormalities - Ext No significant edema. - MSK Right upper extremity in hard cast. - Neuro No focal deficits - Psych No abnormalities ASSESSMENT: Pt. is a 78 yo Right-handed white male.On 09/17/2018 he was admitted to [facility] and underwent emergency surgery for right intertrochancteric proximal hip fx (Unilateral Hip Fra cture) by DR. Kian Villa.Pre-morbidly, Pt. was independent/mod-I in Self-Care, Sphincter Control, Transfers Control, Communication, Social Cognition, and Locomotion; and he had good Sphincter Control .Currently, he has deficits of Self-Care, Transfers Control, Endurance, Balance, Safety Awareness, Lo comotion, and Social Cognition.Pt. is now referred to [facility] for acute in- patient rehabilitation in order to maximize patient's functional independence in activities of daily living, strength, ROM, and mobility.- Rehab Goal Patient has realistic goal of being discharged at assistance level 6-Jane to reside at Home with Fam jose/Relatives. MDM/PLAN: - Physical Therapy Decreased range of motion - to improve, our physical therapists will perform initial evaluation of p t's status upon admission and devise an individualized program for increasing patient's Range of Carmelo on. Gait dysfunction - to improve, our physical therapists will perform initial evaluation of pt's statu s upon admission and devise an individualized program for Gait Training, and Wheel Chair mobility Inability to transfer - to improve, our physical therapists will perform initial evaluation of pt's status upon admission and devise an individualized program for Bed mobility Need for home safety evaluation - to improve, our physical therapists will perform initial evaluatio n of pt's status upon admission and devise an individualized program for Home Evaluation Need in caregiver upon discharge - to improve, our physical therapists will perform initial evaluati on of pt's status upon admission and devise an individualized program for Caregiver Training New precaution - to improve, our physical therapists will perform initial evaluation of pt's status upon admission and devise an individualized program for Patient precaution education Edema - to improve, our physical therapists will perform initial evaluation of pt's status upon admi ssion and devise an individualized program for Elevation Training, and Lymphedema Therapy Poor balance - to improve, our physical therapists will perform initial evaluation of pt's status up on admission and devise an individualized program for Balance Training Poor endurance - to improve, our physical therapists will perform initial evaluation of pt's status upon admission and devise an individualized program for Endurance Training Weakness - to improve, our physical therapists will perform initial evaluation of pt's status upon a dmission and devise an individualized program for Aquatic Therapy, Neuromuscular Reeducation, and Str engthening Achieving independence - to improve, our physical therapists will perform initial evaluation of pt's status upon admission and devise an individualized program for Community Reintegration Activities - Occupational Therapy ADL deficits - to improve, our occupation therapists will perform initial evaluation of pt's status upon admission and devise an individualized program for Bathing, Bed mobility, Community Reintegratio n, Cooking, Dressing, Eating, Fine Motor Skills, Grooming, Homemaking, Kitchen Mobility, Laundry, Pat ient Education, Safety Awareness, Splinting - Positioning, Transfers(Toilet, Tub, Shower), and Wheel Chair Management Cognitive deficits - to improve, our occupation therapists will perform initial evaluation of pt's s tatus upon admission and devise an individualized program for Cognition - orientation Need for child care aide - to improve, our occupation therapists will perform initial evaluation of pt's status upon admission and devise an individualized program for Caregiver Training Weakness - to improve, our occupation therapists will perform initial evaluation of pt's status upon admission and devise an individualized program for Aquatic Therapy, Balance, Endurance, UE ROM, and UE strengthening - Anterior Hip Precaution No abduction No active extension No adduction across midline No external rotation No hip flexion >90 degrees No internal rotation - Diet - Liquid Texture Continue Regular - Tube Feed Continue N/A - Diet Type Continue Regular - Posterior Hip Precaution No adduction across midline No external rotation No hip flexion >90 degrees No internal rotation No wheel chair propulsion - Weight Bearing Precaution NWB right wrist WBAT right LE - Skin care per protocol - Diet - Solid Texture Continue Regular - Shower allowing shower FUNCTIONAL STATUS: UPDATED AT WEEKLY TEAM CONFERENCE - Bladder Same accident frequency: 7-Ind - No accidents in the past 7 days - Bowel Same accident frequency: 7-Ind - No accidents in the past 7 days - Walking Same score based on distance walked: 0(N/A) FUNCTIONAL STATUS: - Self-Care A. Eating Dion B. Grooming Dion C. Bathing modA D. Dressing - Upper maxA E. Dressing - Lower maxA F. Toileting modA - Sphincter Control G: Bladder control Ind H: Bowel control Ind - Transfers Control I. Bed/Chair/Wheelchair modA J. Toilet modA K. Tub/Shower modA - Locomotion L. Walk/Wheelchair (B) maxA M. Stairs ADNO - Communication N. Comprehension (B) Jane O. Expression (B) Jane - Social Cognition P. Social Interaction Jane Q. Problem Solving Jane R. Memory sup - Endurance Fair - Balance Fair - Safety Awareness Fair CURRENT FUNC. DEFICITS: Self-Care, Transfers Control, Endurance, Balance, Safety Awareness, Locomotion, and Social Cognition SIGNATURE PANEL: ([facility])
--- NOTE | 2018-09-27 03:23 | FAST ---
SHIFT START DATE/TIME: 09/26/2018 19:00 (GLOBAL PRODUCT MANAGER) SHIFT END DATE/TIME: 09/27/2018 07:00 (GLOBAL PRODUCT MANAGER) NAME GISELLE TRUJILLO DATE OF : 1940 DATE OF ADMISSION: 09/21/2018 20:14 (GLOBAL PRODUCT MANAGER) PHONE: AGE: 78 SSN# [id number] GENDER: Male ENCOUNTER PHYSICIAN: Dr. Yomi Campbell M.D. ADMISSION DIAGNOSIS: - Orthopaedic Disorders 08 - Unilateral Hip Fracture (08.11) right intertrochancteric proximal hip fx . right impacted fx involving the distal radial metaphysis a nd mild comminuted distal ulnar fx. EATING: Activity did not occur on this shift EATING - SCORE: 0-UNK GROOMING: Activity did not occur on this shift GROOMING - SCORE: 0-UNK BATHING: Activity did not occur on this shift BATHING - SCORE: 0-UNK DRESSING - UPPER BODY: Activity did not occur on this shift ARTICLES SCORE Total number of steps: 0 DRESSING - UPPER BODY - SCORE: 0-UNK DRESSING - LOWER BODY: Activity did not occur on this shift ARTICLES SCORE Total number of steps: 0 DRESSING - LOWER BODY - SCORE: 0-UNK TOILETING: TOILETING - STEP 1: Does the patient require the assistance of a person or device, or need extra time with toileting? Yes . TOILETING - STEP 2: Does the patient require the assistance of a helper? Yes. TOILETING - STEP 3: How much assistance does the patient require from the helper? Only supervision TOILETING - SCORE: 5-SUP BLADDER MANAGEMENT: BLADDER MANAGEMENT - STEP 1: Does the patient control the bladder completely and intentionally without equipment or devices or med ications, and is always continent? Yes. BLADDER MANAGEMENT - SCORE: 7-IND BOWEL MANAGEMENT: Activity did not occur on this shift BOWEL MANAGEMENT - SCORE: 7-IND TRANSFERS: BED, CHAIR, WHEELCHAIR: TRANSFERS: BED, CHAIR, WHEELCHAIR - STEP 1: Does the patient require assistance of a person or device, or need extra time with bed, chair, or whe elchair transfers? Yes. TRANSFERS: BED, CHAIR, WHEELCHAIR - STEP 2: Does the patient require the assistance of a helper? Yes. TRANSFERS: BED, CHAIR, WHEELCHAIR - STEP 3: How much assistance does the patient require from the helper? Only supervision TRANSFERS: BED, CHAIR, WHEELCHAIR - SCORE: 5-SUP TRANSFERS: TOILET: TRANSFERS: TOILET - STEP 1: Does the patient require the assistance of a person or device, or need extra time with toilet transfe rs? Yes. TRANSFERS: TOILET - STEP 2: Does the patient require the assistance of a helper? Yes. TRANSFERS: TOILET - STEP 3: How much assistance does the patient require from the helper? Only supervision, cuing, coaxing, OR he lp to set out transfer equipment or to lock brakes and/or lift foot rests TRANSFERS: TOILET - SCORE: 5-SUP TRANSFERS: SHOWER: Activity did not occur on this shift TRANSFERS: SHOWER - SCORE: 0-UNK TRANSFERS: TUB: Activity did not occur on this shift TRANSFERS: TUB - SCORE: 0-UNK LOCOMOTION: WALK: Activity did not occur on this shift LOCOMOTION: WALK - SCORE: 0-UNK LOCOMOTION: WHEELCHAIR: Activity did not occur on this shift LOCOMOTION: WHEELCHAIR - SCORE: 0-UNK COMPREHENSION: COMPREHENSION: TYPE: Both COMPREHENSION - STEP 1: Does the patient require help from a person or device, or need extra time to understand complex and a bstract ideas (such as current events, finances, discharge planning, medical issues, relationships, e tc)? No. COMPREHENSION - STEP 2: Does the patient need extra time, require an assistive device (such as glasses for visual comprehensi on or a hearing aid for auditory comprehension) or does s/he have mild difficulty understanding compl ex and abstract information? Yes. COMPREHENSION - SCORE: 6-LISA EXPRESSION EXPRESSION: TYPE: Both EXPRESSION - STEP 1: Does the patient require help from a person or device, or need extra time expressing complex and abst ract ideas (such as current events, finances, discharge planning, medical issues, relationships, etc) ? No. EXPRESSION - STEP 2: Does the patient need extra time, require an assistive device (such as augmentive communication syste m or a communication board), OR does s/he have mild difficulty expressing complex and abstract ideas (including mild dysarthria or mild word-find problems)? No. EXPRESSION - SCORE: 7-IND SOCIAL INTERACTION: SOCIAL INTERACTION - STEP 1: Does the patient require a helper to interact with others in social and therapeutic situations? No. SOCIAL INTERACTION - STEP 2: Does the patient need extra time in social situations, OR does s/he interact with staff, other patien ts, and family members ONLY in structured environments, OR does s/he require medication for social in teraction? No. SOCIAL INTERACTION - SCORE: 7-IND PROBLEM SOLVING: PROBLEM SOLVING - STEP 1: Does the patient need help from a person or device, or need extra time to solve complex problems such as managing a checking account or confronting interpersonal problems? No. PROBLEM SOLVING - STEP 2: Does the patient require extra time to make decisions or solve problems, OR does s/he have slight dif ficulty reading, initiating, or self-correcting in unfamiliar situations? No. PROBLEM SOLVING - SCORE: 7-IND MEMORY: MEMORY - STEP 1: Does the patient need help from a person or device, or need extra time to remember frequently encount ered people, daily routines, and executing requests? No. MEMORY - STEP 2: Does the patient have slight difficulty recognizing frequently encountered people, daily routines, or executing requests without the need for repetition or using self-initiated or environmental cues to remember? No. MEMORY - SCORE: 7-IND SIGNATURE PANEL: The following modified sections: Eating - Score, Grooming - Score, Bathing - Score, Dressing - Upper Body - Score, Dressing - Lower Body - Score, Toileting - Score, Bladder Management - Score, Bowel Man agement - Score, Transfers: Bed, Chair, Wheelchair - Score, Transfers: Toilet - Score, Transfers: Neli wer - Score, Transfers: Tub - Score, Locomotion: Walk - Score, Locomotion: Wheelchair - Score, Compre hension - Score, Expression - Score, Social Interaction - Score, Problem Solving - Score, Memory - Sc ore were [electronically] signed by Geno Carlos CNA on MonSep 27 2018 03:23:05 T-0600 ([facility])
[2018-09-27] MEDS: HYDROCODONE/APAP 7.5/325 MG TAB PO PRN ×4 (06:09→21:00)
[2018-09-27 06:26] LABS: Absolute Lymphocytes (CBC) 1.2 K/uL (0.7-4.9); Absolute Monocytes 0.8 K/uL (0.1-1.3); Absolute Neutrophil 2.8 K/uL (1.8-8.0); Basophils % 1.1 % (0-1.3); Eosinophils % 4.1 % (0-4.4); Hematocrit 33.7 % (39.6-49.0); Lymphocytes % 23.7 % (15.3-44.8); MPV 7.8 fL (7.6-11.3); Monocytes % 15.6 % (3.3-12.3); RBC Red Blood Cell Count 3.95 M/uL (4.33-5.43)
[2018-09-27 07:07] LABS: BUN Blood Urea Nitrogen 16 mg/dL (7-18); Bicarbonate 28 mmol/L (21-32); Glucose Level 90 mg/dL (74-106); Potassium 4.6 mmol/L (3.5-5.1); Prealbumin 11.5 mg/dL (20-40); Sodium Level 140 mmol/L (136-145)
[2018-09-27 07:29] LABS: Anisocytosis 1+; Blood Morphology Comment NOTED (NOT SEEN); Platelet Estimate ADEQ; Polychromasia 2+
[2018-09-27] MEDS: ROSUVASTATIN 10 MG TAB PO SCH (08:10)
[2018-09-27] MEDS: FERROUS SULFATE 325 MG TAB PO SCH (08:10)
[2018-09-27] MEDS: NEBIVOLOL HCL 20 MG TABLET PO SCH (08:10)
[2018-09-27] MEDS: ASCORBIC ACID 500 MG TABLET PO SCH (08:10)
[2018-09-27] MEDS: DOCUSATE NA 100 MG CAP PO SCH (08:10)
[2018-09-27] MEDS: FE SULF/FA/VIT B COMP & C TAB PO SCH (08:10)
[2018-09-27] MEDS: PROMOD 30 ML DOSE PO SCH ×2 (08:11→19:03)
--- NOTE | 2018-09-27 14:14 | FAST ---
SHIFT START DATE/TIME: 09/27/2018 07:00 (FIRST LINE PRODUCTION SUPERVISOR) SHIFT END DATE/TIME: 09/27/2018 19:00 (FIRST LINE PRODUCTION SUPERVISOR) NAME GISELLE TRUJILLO DATE OF : 1940 DATE OF ADMISSION: 09/21/2018 20:14 (FIRST LINE PRODUCTION SUPERVISOR) PHONE: AGE: 78 SSN# [id number] GENDER: Male ENCOUNTER PHYSICIAN: Dr. Yomi Campbell M.D. ADMISSION DIAGNOSIS: - Orthopaedic Disorders 08 - Unilateral Hip Fracture (08.11) right intertrochancteric proximal hip fx . right impacted fx involving the distal radial metaphysis a nd mild comminuted distal ulnar fx. EATING: EATING - STEP 1: Does the patient require the assistance of a person or device, or need extra time when eating? Yes. EATING - STEP 2: Does the patient require the assistance of a helper? No, patient only requires an assistive device, O R s/he takes more than reasonable time to eat, OR there is a safety concern, OR s/he requires modifie d food consistency EATING - SCORE: 6-LISA GROOMING: Comb/brush hair Oral care Wash, rinse, and dry face Wash, rinse, and dry hands GROOMING - STEP 1: Does the patient require the assistance of a person or device, or need extra time when grooming? Yes. GROOMING - STEP 2: Does the patient require the assistance of a helper? No. The patient only requires an assistive devic e, OR takes more than reasonable time to groom, OR there is a concern for safety as the patient groom s GROOMING - SCORE: 6-LISA BATHING: Activity did not occur on this shift BATHING - SCORE: 0-UNK DRESSING - UPPER BODY: Activity did not occur on this shift ARTICLES SCORE Total number of steps: 0 DRESSING - UPPER BODY - SCORE: 0-UNK DRESSING - LOWER BODY: Activity did not occur on this shift ARTICLES SCORE Total number of steps: 0 DRESSING - LOWER BODY - SCORE: 0-UNK TOILETING: TOILETING - STEP 1: Does the patient require the assistance of a person or device, or need extra time with toileting? Yes . TOILETING - STEP 2: Does the patient require the assistance of a helper? Yes. TOILETING - STEP 3: How much assistance does the patient require from the helper? Only supervision TOILETING - SCORE: 5-SUP BLADDER MANAGEMENT: BLADDER MANAGEMENT - STEP 1: Does the patient control the bladder completely and intentionally without equipment or devices or med ications, and is always continent? No. BLADDER MANAGEMENT - STEP 2: Does the patient require the assistance of a helper? No, patient requires and independently uses an a ssistive device, such as a urinal, bedpan, bedside commode, catheter, absorbent pad, or collecting de vice BLADDER MANAGEMENT - SCORE: 6-LISA BOWEL MANAGEMENT: Activity did not occur on this shift BOWEL MANAGEMENT - SCORE: 7-IND TRANSFERS: BED, CHAIR, WHEELCHAIR: TRANSFERS: BED, CHAIR, WHEELCHAIR - STEP 1: Does the patient require assistance of a person or device, or need extra time with bed, chair, or whe elchair transfers? Yes. TRANSFERS: BED, CHAIR, WHEELCHAIR - STEP 2: Does the patient require the assistance of a helper? Yes. TRANSFERS: BED, CHAIR, WHEELCHAIR - STEP 3: How much assistance does the patient require from the helper? Steadying/guiding assistance TRANSFERS: BED, CHAIR, WHEELCHAIR - SCORE: 4-MIN TRANSFERS: TOILET: TRANSFERS: TOILET - STEP 1: Does the patient require the assistance of a person or device, or need extra time with toilet transfe rs? Yes. TRANSFERS: TOILET - STEP 2: Does the patient require the assistance of a helper? Yes. TRANSFERS: TOILET - STEP 3: How much assistance does the patient require from the helper? Only supervision, cuing, coaxing, OR he lp to set out transfer equipment or to lock brakes and/or lift foot rests TRANSFERS: TOILET - SCORE: 5-SUP TRANSFERS: SHOWER: Activity did not occur on this shift TRANSFERS: SHOWER - SCORE: 0-UNK TRANSFERS: TUB: Activity did not occur on this shift TRANSFERS: TUB - SCORE: 0-UNK LOCOMOTION: WALK: Activity did not occur on this shift LOCOMOTION: WALK - SCORE: 0-UNK LOCOMOTION: WHEELCHAIR: Activity did not occur on this shift LOCOMOTION: WHEELCHAIR - SCORE: 0-UNK COMPREHENSION: COMPREHENSION: TYPE: Both COMPREHENSION - STEP 1: Does the patient require help from a person or device, or need extra time to understand complex and a bstract ideas (such as current events, finances, discharge planning, medical issues, relationships, e tc)? No. COMPREHENSION - STEP 2: Does the patient need extra time, require an assistive device (such as glasses for visual comprehensi on or a hearing aid for auditory comprehension) or does s/he have mild difficulty understanding compl ex and abstract information? No. COMPREHENSION - SCORE: 7-IND EXPRESSION EXPRESSION: TYPE: Both EXPRESSION - STEP 1: Does the patient require help from a person or device, or need extra time expressing complex and abst ract ideas (such as current events, finances, discharge planning, medical issues, relationships, etc) ? No. EXPRESSION - STEP 2: Does the patient need extra time, require an assistive device (such as augmentive communication syste m or a communication board), OR does s/he have mild difficulty expressing complex and abstract ideas (including mild dysarthria or mild word-find problems)? No. EXPRESSION - SCORE: 7-IND SOCIAL INTERACTION: SOCIAL INTERACTION - STEP 1: Does the patient require a helper to interact with others in social and therapeutic situations? No. SOCIAL INTERACTION - STEP 2: Does the patient need extra time in social situations, OR does s/he interact with staff, other patien ts, and family members ONLY in structured environments, OR does s/he require medication for social in teraction? No. SOCIAL INTERACTION - SCORE: 7-IND PROBLEM SOLVING: PROBLEM SOLVING - STEP 1: Does the patient need help from a person or device, or need extra time to solve complex problems such as managing a checking account or confronting interpersonal problems? No. PROBLEM SOLVING - STEP 2: Does the patient require extra time to make decisions or solve problems, OR does s/he have slight dif ficulty reading, initiating, or self-correcting in unfamiliar situations? No. PROBLEM SOLVING - SCORE: 7-IND MEMORY: MEMORY - STEP 1: Does the patient need help from a person or device, or need extra time to remember frequently encount ered people, daily routines, and executing requests? No. MEMORY - STEP 2: Does the patient have slight difficulty recognizing frequently encountered people, daily routines, or executing requests without the need for repetition or using self-initiated or environmental cues to remember? No. MEMORY - SCORE: 7-IND SIGNATURE PANEL: The following modified sections: Eating - Score, Grooming - Score, Bathing - Score, Dressing - Upper Body - Score, Dressing - Lower Body - Score, Toileting - Score, Bladder Management - Score, Bowel Man agement - Score, Transfers: Bed, Chair, Wheelchair - Score, Transfers: Toilet - Score, Transfers: Neli wer - Score, Transfers: Tub - Score, Locomotion: Walk - Score, Locomotion: Wheelchair - Score, Compre hension - Score, Expression - Score, Social Interaction - Score, Problem Solving - Score, Memory - Sc ore were [electronically] signed by Didier Moore on MonSep 27 2018 14:13:30 GMT-0600 (Central Standard Time)
--- NOTE | 2018-09-27 15:51 | FAST ---
ENCOUNTER DATE AND TIME: 09/27/2018 08:00 (RADIO MECHANIC APPRENTICE) NAME GISELLE TRUJILLO DATE OF : 1940 DATE OF ADMISSION: 09/21/2018 20:14 (RADIO MECHANIC APPRENTICE) PHONE: AGE: 78 SSN# [id number] GENDER: Male ENCOUNTER PHYSICIAN: Dr. Yomi Campbell M.D. ADMISSION DIAGNOSIS: - Orthopaedic Disorders 08 - Unilateral Hip Fracture (08.11) right intertrochancteric proximal hip fx . right impacted fx involving the distal radial metaphysis a nd mild comminuted distal ulnar fx. EATING: Activity did not occur on this shift EATING - SCORE: 0-UNK GROOMING: Activity did not occur on this shift GROOMING - SCORE: 0-UNK BATHING: Activity did not occur on this shift BATHING - SCORE: 0-UNK DRESSING - UPPER BODY: Activity did not occur on this shift Patient is not dressing in public clothing ARTICLES SCORE Total number of steps: 0 DRESSING - UPPER BODY - SCORE: 0-UNK DRESSING - LOWER BODY: Activity did not occur on this shift Patient is not dressing in public clothing ARTICLES SCORE Total number of steps: 0 DRESSING - LOWER BODY - SCORE: 0-UNK TOILETING: Activity did not occur on this shift TOILETING - SCORE: 0-UNK BLADDER MANAGEMENT: Activity did not occur on this shift BLADDER MANAGEMENT - SCORE: 7-IND BOWEL MANAGEMENT: Activity did not occur on this shift BOWEL MANAGEMENT - SCORE: 7-IND TRANSFERS: BED, CHAIR, WHEELCHAIR: TRANSFERS: BED, CHAIR, WHEELCHAIR - STEP 1: Does the patient require assistance of a person or device, or need extra time with bed, chair, or whe elchair transfers? Yes. TRANSFERS: BED, CHAIR, WHEELCHAIR - STEP 2: Does the patient require the assistance of a helper? No. Patient only requires an assistive device fo r bed, chair, wheelchair transfers such as a sliding board, grab bar, or brace, OR s/he takes more th an reasonable time, OR there is a safety concern when s/he performs the transfers TRANSFERS: BED, CHAIR, WHEELCHAIR - SCORE: 6-LISA TRANSFERS: TOILET: Activity did not occur on this shift TRANSFERS: TOILET - SCORE: 0-UNK TRANSFERS: SHOWER: Activity did not occur on this shift TRANSFERS: SHOWER - SCORE: 0-UNK TRANSFERS: TUB: Activity did not occur on this shift TRANSFERS: TUB - SCORE: 0-UNK LOCOMOTION: WALK: LOCOMOTION: WALK - STEP 1: Does the patient need help from a person or device, or need extra time to walk 150 feet? No. LOCOMOTION: WALK - STEP 2: Does the patient need an assistive device (such as an orthosis, prosthesis, crutches, or walker) to g o 150 feet, OR does s/he take more than reasonable time, OR is there a concern for safety? Yes, the p atient needs an assistive device LOCOMOTION: WALK - SCORE: 6-LISA LOCOMOTION: WHEELCHAIR: Activity did not occur on this shift LOCOMOTION: WHEELCHAIR - SCORE: 0-UNK LOCOMOTION: STAIRS: LOCOMOTION: STAIRS - STEP 1: Does the patient need help to go up and down 12 to 14 stairs? No. LOCOMOTION: STAIRS - STEP 2: Does the patient require an assistive device - such as handrails or cane - to go up and down one flig ht of stairs, OR does s/he take more than reasonable time, OR is there a concern for safety? Yes, the patient requires an assistive device LOCOMOTION: STAIRS - SCORE: 6-LISA COMPREHENSION: COMPREHENSION - SCORE: 0-UNK EXPRESSION EXPRESSION - SCORE: 0-UNK SOCIAL INTERACTION: SOCIAL INTERACTION - SCORE: 0-UNK PROBLEM SOLVING: PROBLEM SOLVING - SCORE: 0-UNK MEMORY: MEMORY - SCORE: 0-UNK SIGNATURE PANEL: The following modified sections: Transfers: Bed, Chair, Wheelchair - Score, Transfers: Toilet - Score , Locomotion: Walk - Score, Locomotion: Wheelchair - Score, Locomotion: Stairs - Score were [brian bolivar] signed by Cabrera Kelley PT on MonSep 27 2018 15:50:44 GMT-0600 (Central Standard Time)
[2018-09-27] MEDS: RIVAROXABAN 20 MG TABLET PO SCH (16:57)
--- NOTE | 2018-09-28 01:10 | FAST ---
SHIFT START DATE/TIME: 09/27/2018 19:00 (CHANGE CONSULTANT) SHIFT END DATE/TIME: 09/28/2018 07:00 (CHANGE CONSULTANT) NAME GISELLE TRUJILLO DATE OF : 1940 DATE OF ADMISSION: 09/21/2018 20:14 (CHANGE CONSULTANT) PHONE: AGE: 78 SSN# [id number] GENDER: Male ENCOUNTER PHYSICIAN: Dr. Yomi Campbell M.D. ADMISSION DIAGNOSIS: - Orthopaedic Disorders 08 - Unilateral Hip Fracture (08.11) right intertrochancteric proximal hip fx . right impacted fx involving the distal radial metaphysis a nd mild comminuted distal ulnar fx. EATING: Activity did not occur on this shift EATING - SCORE: 0-UNK GROOMING: Activity did not occur on this shift GROOMING - SCORE: 0-UNK BATHING: Activity did not occur on this shift BATHING - SCORE: 0-UNK DRESSING - UPPER BODY: Activity did not occur on this shift ARTICLES SCORE Total number of steps: 0 DRESSING - UPPER BODY - SCORE: 0-UNK DRESSING - LOWER BODY: Activity did not occur on this shift ARTICLES SCORE Total number of steps: 0 DRESSING - LOWER BODY - SCORE: 0-UNK TOILETING: TOILETING - STEP 1: Does the patient require the assistance of a person or device, or need extra time with toileting? Yes . TOILETING - STEP 2: Does the patient require the assistance of a helper? Yes. TOILETING - STEP 3: How much assistance does the patient require from the helper? Only supervision TOILETING - SCORE: 5-SUP BLADDER MANAGEMENT: BLADDER MANAGEMENT - STEP 1: Does the patient control the bladder completely and intentionally without equipment or devices or med ications, and is always continent? Yes. BLADDER MANAGEMENT - SCORE: 7-IND BOWEL MANAGEMENT: Activity did not occur on this shift BOWEL MANAGEMENT - SCORE: 7-IND TRANSFERS: BED, CHAIR, WHEELCHAIR: TRANSFERS: BED, CHAIR, WHEELCHAIR - STEP 1: Does the patient require assistance of a person or device, or need extra time with bed, chair, or whe elchair transfers? Yes. TRANSFERS: BED, CHAIR, WHEELCHAIR - STEP 2: Does the patient require the assistance of a helper? Yes. TRANSFERS: BED, CHAIR, WHEELCHAIR - STEP 3: How much assistance does the patient require from the helper? Steadying/guiding assistance TRANSFERS: BED, CHAIR, WHEELCHAIR - SCORE: 4-MIN TRANSFERS: TOILET: TRANSFERS: TOILET - STEP 1: Does the patient require the assistance of a person or device, or need extra time with toilet transfe rs? Yes. TRANSFERS: TOILET - STEP 2: Does the patient require the assistance of a helper? Yes. TRANSFERS: TOILET - STEP 3: How much assistance does the patient require from the helper? Patient performs half or more of the tr ansferring tasks TRANSFERS: TOILET - STEP 4: Does the patient need only incidental help such as contact guard or steadying during toilet transfer? Yes. TRANSFERS: TOILET - SCORE: 4-MIN TRANSFERS: SHOWER: Activity did not occur on this shift TRANSFERS: SHOWER - SCORE: 0-UNK TRANSFERS: TUB: Activity did not occur on this shift TRANSFERS: TUB - SCORE: 0-UNK LOCOMOTION: WALK: Activity did not occur on this shift LOCOMOTION: WALK - SCORE: 0-UNK LOCOMOTION: WHEELCHAIR: Activity did not occur on this shift LOCOMOTION: WHEELCHAIR - SCORE: 0-UNK COMPREHENSION: COMPREHENSION: TYPE: Both COMPREHENSION - STEP 1: Does the patient require help from a person or device, or need extra time to understand complex and a bstract ideas (such as current events, finances, discharge planning, medical issues, relationships, e tc)? No. COMPREHENSION - STEP 2: Does the patient need extra time, require an assistive device (such as glasses for visual comprehensi on or a hearing aid for auditory comprehension) or does s/he have mild difficulty understanding compl ex and abstract information? Yes. COMPREHENSION - SCORE: 6-LISA EXPRESSION EXPRESSION: TYPE: Both EXPRESSION - STEP 1: Does the patient require help from a person or device, or need extra time expressing complex and abst ract ideas (such as current events, finances, discharge planning, medical issues, relationships, etc) ? No. EXPRESSION - STEP 2: Does the patient need extra time, require an assistive device (such as augmentive communication syste m or a communication board), OR does s/he have mild difficulty expressing complex and abstract ideas (including mild dysarthria or mild word-find problems)? No. EXPRESSION - SCORE: 7-IND SOCIAL INTERACTION: SOCIAL INTERACTION - STEP 1: Does the patient require a helper to interact with others in social and therapeutic situations? No. SOCIAL INTERACTION - STEP 2: Does the patient need extra time in social situations, OR does s/he interact with staff, other patien ts, and family members ONLY in structured environments, OR does s/he require medication for social in teraction? No. SOCIAL INTERACTION - SCORE: 7-IND PROBLEM SOLVING: PROBLEM SOLVING - STEP 1: Does the patient need help from a person or device, or need extra time to solve complex problems such as managing a checking account or confronting interpersonal problems? No. PROBLEM SOLVING - STEP 2: Does the patient require extra time to make decisions or solve problems, OR does s/he have slight dif ficulty reading, initiating, or self-correcting in unfamiliar situations? No. PROBLEM SOLVING - SCORE: 7-IND MEMORY: MEMORY - STEP 1: Does the patient need help from a person or device, or need extra time to remember frequently encount ered people, daily routines, and executing requests? No. MEMORY - STEP 2: Does the patient have slight difficulty recognizing frequently encountered people, daily routines, or executing requests without the need for repetition or using self-initiated or environmental cues to remember? No. MEMORY - SCORE: 7-IND SIGNATURE PANEL: The following modified sections: Eating - Score, Grooming - Score, Bathing - Score, Dressing - Upper Body - Score, Dressing - Lower Body - Score, Toileting - Score, Bladder Management - Score, Bowel Man agement - Score, Transfers: Bed, Chair, Wheelchair - Score, Transfers: Toilet - Score, Transfers: Neli wer - Score, Transfers: Tub - Score, Locomotion: Walk - Score, Locomotion: Wheelchair - Score, Compre hension - Score, Expression - Score, Social Interaction - Score, Problem Solving - Score, Memory - Sc ore were [electronically] signed by Geno Carlos CNA on MonSep 28 2018 01:09:06 T-0600 ([facility])
[2018-09-28] MEDS: HYDROCODONE/APAP 7.5/325 MG TAB PO PRN ×3 (06:55→21:02)
[2018-09-28] MEDS: FERROUS SULFATE 325 MG TAB PO SCH (08:10)
[2018-09-28] MEDS: NEBIVOLOL HCL 20 MG TABLET PO SCH (08:10)
[2018-09-28] MEDS: ASCORBIC ACID 500 MG TABLET PO SCH (08:10)
[2018-09-28] MEDS: PROMOD 30 ML DOSE PO SCH ×2 (08:10→19:24)
[2018-09-28] MEDS: FE SULF/FA/VIT B COMP & C TAB PO SCH (08:10)
[2018-09-28] MEDS: DOCUSATE NA 100 MG CAP PO SCH (08:11)
[2018-09-28] MEDS: TRAMADOL HCL 50 MG TAB PO PRN ×2 (08:11→16:34)
--- NOTE | 2018-09-28 09:53 | P.RH.PN ---
Estimated Length of Stay: 13 Expected Discharge Date: 10/03/18 Discharge Disposition Plan: Home Family Support: Yes Half-Way Goal: Mobility, Transfers, Self Care Vital Signs: Last Vital Signs Temp 97.6 F 09/28/18 09:13 Pulse 67 09/28/18 09:13 Resp 16 09/28/18 09:13 BP 147/69 H 09/28/18 09:13 Pulse Ox 97 09/28/18 09:13 Laboratory: Laboratory Last Values WBC 5.0 K/uL (4.3-10.9) 09/27/18 05:56 RBC 3.95 M/uL (4.33-5.43) L 09/27/18 05:56 Hgb 11.5 g/dL (13.6-17.9) L 09/27/18 05:56 Hct 33.7 % (39.6-49.0) L 09/27/18 05:56 MCV 85.4 fL (80-100) 09/27/18 05:56 MCH 29.2 pg (27.0-35.0) 09/27/18 05:56 MCHC 34.2 g/dL (32.0-36.0) 09/27/18 05:56 RDW 15.4 % (12.1-15.2) H 09/27/18 05:56 Plt Count 249 K/uL (152-406) D 09/27/18 05:56 MPV 7.8 fL (7.6-11.3) 09/27/18 05:56 Neutrophils % 55.5 % (41.7-73.7) 09/27/18 05:56 Lymphocytes % 23.7 % (15.3-44.8) 09/27/18 05:56 Monocytes % 15.6 % (3.3-12.3) H 09/27/18 05:56 Eosinophils % 4.1 % (0-4.4) 09/27/18 05:56 Basophils % 1.1 % (0-1.3) 09/27/18 05:56 Absolute Neutrophils 2.8 K/uL (1.8-8.0) 09/27/18 05:56 Segmented Neutrophils 60 % (40-80) 09/27/18 05:56 Band Neutrophils 2 % (0-1) H 09/22/18 05:45 Absolute Lymphocytes 1.2 K/uL (0.7-4.9) 09/27/18 05:56 Lymphocytes 22 % (15-42) 09/27/18 05:56 Monocytes 12 % (0-10) H 09/27/18 05:56 Absolute Monocytes 0.8 K/uL (0.1-1.3) 09/27/18 05:56 Eosinophils 2 % (0-3) 09/27/18 05:56 Absolute Eosinophils 0.2 K/uL (0-0.5) 09/27/18 05:56 Basophils 2 % (0-1) H 09/27/18 05:56 Absolute Basophils 0.1 K/uL (0-0.5) 09/27/18 05:56 Atypical Lymphocytes 2 09/27/18 05:56 Polychromasia 2+ 09/27/18 05:56 Anisocytosis 1+ 09/27/18 05:56 Morphology Comment Noted (NOT SEEN) 09/27/18 05:56 Sodium 140 mmol/L (136-145) 09/27/18 05:56 Potassium 4.6 mmol/L (3.5-5.1) 09/27/18 05:56 Chloride 107 mmol/L (98-107) 09/27/18 05:56 Carbon Dioxide 28 mmol/L (21-32) 09/27/18 05:56 BUN 16 mg/dL (7-18) 09/27/18 05:56 Creatinine 0.69 mg/dL (0.55-1.3) 09/27/18 05:56 Estimated GFR > 90 mL/min (=/>90) 09/27/18 05:56 Glucose 90 mg/dL (74-106) 09/27/18 05:56 Calcium 8.6 mg/dL (8.5-10.1) 09/27/18 05:56 Magnesium 2.2 mg/dL (1.8-2.4) 09/22/18 05:45 Albumin 3.0 g/dL (3.4-5.0) L 09/27/18 05:56 Prealbumin 11.5 mg/dL (20-40) L 09/27/18 05:56 Urine Color Dk yellow 09/21/18 21:00 Urine Appearance Clear 09/21/18 21:00 Urine pH 5.5 (5.0-7.0) 09/21/18 21:00 Ur Specific [place] >=1.030 (1.005-1.030) 09/21/18 21:00 Urine Ketones Negative (NEG) 09/21/18 21:00 Urine Blood Negative (NEG) 09/21/18 21:00 Urine Nitrite Negative (NEG) 09/21/18 21:00 Urine Bilirubin Negative (NEG) 09/21/18 21:00 Urine Urobilinogen 1.0 mg/dL (0.2-1.0) 09/21/18 21:00 Ur Leukocyte Esterase Negative (NEG) 09/21/18 21:00 Urine RBC None seen /HPF (NONE SEEN) 09/21/18 21:00 Urine WBC <5 /HPF (<5) 09/21/18 21:00 Ur Squamous Epith Cells 5-10 /HPF (NONE SEEN) H 09/21/18 21:00 Urine Bacteria <20 /HPF (NONE SEEN) 09/21/18 21:00 Urine Mucus 1+ /HPF (NONE SEEN) 09/21/18 21:00 Urine Culture Reflexed Not needed 09/21/18 21:00 Urine Glucose Negative (NEG) 09/21/18 21:00 Urine Total Protein Negative (NEG) 09/21/18 21:00 Weight: 173 lb Wound Present: No Closed Surgical Incision Present: Yes Negative Pressure Wound Therapy Present: No Physician Update: Labs have been reviewed and are stable. He is modified independent walking 150' and up and down 15 stairs. He is a supervision with ADLs. Pain Issues: [place] 7.5mg Q4H PRN. Tramadol 50mg TID PRN Functional Improvement: pt has demonstrated good progress throughout therapy. pt is still limited at times by pain in the R hip. Skilled PT services continue to be necessary to further enhance functional performance and safety. Functional Improvement Occupational Therapy: pt can benifit with further therapy to address pt's overall endurance and strength for adl tasks using the left UE only, due to NWB on the right UE. cont to educate and train pt on using A/E as needed for safety and for enerrgy conservation techniques for all adl tasks. cont to increase pt's endurance for static standing activities for adl tasks. Cont with the POC and the goals for when the pt returns home. Summary: Patient's care plan and alf goals have been reviewed and revised as necessary. Please see the Rehabilitation Signature page for all necessary signatures.
--- NOTE | 2018-09-28 10:36 | FAST ---
SHIFT START DATE/TIME: 09/28/2018 07:00 (REPEATER OPERATOR) SHIFT END DATE/TIME: 09/28/2018 19:00 (REPEATER OPERATOR) NAME GISELLE TRUJILLO DATE OF : 1940 DATE OF ADMISSION: 09/21/2018 20:14 (REPEATER OPERATOR) PHONE: AGE: 78 SSN# [id number] GENDER: Male ENCOUNTER PHYSICIAN: Dr. Yomi Campbell M.D. ADMISSION DIAGNOSIS: - Orthopaedic Disorders 08 - Unilateral Hip Fracture (08.11) right intertrochancteric proximal hip fx . right impacted fx involving the distal radial metaphysis a nd mild comminuted distal ulnar fx. EATING: EATING - STEP 1: Does the patient require the assistance of a person or device, or need extra time when eating? No. EATING - SCORE: 7-IND GROOMING: GROOMING - STEP 1: Does the patient require the assistance of a person or device, or need extra time when grooming? No. GROOMING - SCORE: 7-IND BATHING: Activity did not occur on this shift BATHING - SCORE: 0-UNK DRESSING - UPPER BODY: Activity did not occur on this shift ARTICLES SCORE Total number of steps: 0 DRESSING - UPPER BODY - SCORE: 0-UNK DRESSING - LOWER BODY: Activity did not occur on this shift ARTICLES SCORE Total number of steps: 0 DRESSING - LOWER BODY - SCORE: 0-UNK TOILETING: Activity did not occur on this shift TOILETING - SCORE: 0-UNK BLADDER MANAGEMENT: BLADDER MANAGEMENT - STEP 1: Does the patient control the bladder completely and intentionally without equipment or devices or med ications, and is always continent? Yes. BLADDER MANAGEMENT - SCORE: 7-IND BLADDER MANAGEMENT - FREQUENCY OF ACCIDENTS: BLADDER MANAGEMENT(FA) - STEP 1: How many accidents has the patient had during the current shift? 0 BOWEL MANAGEMENT: BOWEL MANAGEMENT - STEP 1: Does the patient control bowels completely and intentionally without equipment devices or medications AND is always continent? Yes. BOWEL MANAGEMENT - SCORE: 7-IND BOWEL MANAGEMENT - FREQUENCY OF ACCIDENTS: BOWEL MANAGEMENT(FA) - STEP 1: How many accidents has the patient had during the current shift? 0 TRANSFERS: BED, CHAIR, WHEELCHAIR: Activity did not occur on this shift TRANSFERS: BED, CHAIR, WHEELCHAIR - SCORE: 0-UNK TRANSFERS: TOILET: Activity did not occur on this shift TRANSFERS: TOILET - SCORE: 0-UNK TRANSFERS: SHOWER: Activity did not occur on this shift TRANSFERS: SHOWER - SCORE: 0-UNK TRANSFERS: TUB: Activity did not occur on this shift TRANSFERS: TUB - SCORE: 0-UNK LOCOMOTION: WALK: Activity did not occur on this shift LOCOMOTION: WALK - SCORE: 0-UNK LOCOMOTION: WHEELCHAIR: Activity did not occur on this shift LOCOMOTION: WHEELCHAIR - SCORE: 0-UNK COMPREHENSION: COMPREHENSION - SCORE: 0-UNK EXPRESSION EXPRESSION - SCORE: 0-UNK SOCIAL INTERACTION: SOCIAL INTERACTION - SCORE: 0-UNK PROBLEM SOLVING: PROBLEM SOLVING - SCORE: 0-UNK MEMORY: MEMORY - SCORE: 0-UNK SIGNATURE PANEL: The following modified sections: Eating - Score, Grooming - Score, Bathing - Score, Dressing - Upper Body - Score, Dressing - Lower Body - Score, Toileting - Score, Bladder Management - Score, Bowel Man agement - Score, Transfers: Bed, Chair, Wheelchair - Score, Transfers: Toilet - Score, Transfers: Neli wer - Score, Transfers: Tub - Score, Locomotion: Walk - Score, Locomotion: Wheelchair - Score, Compre hension - Score, Expression - Score, Social Interaction - Score, Problem Solving - Score, Memory - Sc ore were [electronically] signed by Marline Peterson CNA on MonSep 28 2018 10:35:02 GMT-0600 ([facility] [place] Standard Time)
--- NOTE | 2018-09-28 14:31 | FAST ---
ENCOUNTER DATE AND TIME: 09/28/2018 08:00 (DIRECTOR MUSIC) NAME GISELLE TRUJILLO DATE OF : 1940 DATE OF ADMISSION: 09/21/2018 20:14 (DIRECTOR MUSIC) PHONE: AGE: 78 SSN# [id number] GENDER: Male ENCOUNTER PHYSICIAN: Dr. Yomi Campbell M.D. ADMISSION DIAGNOSIS: - Orthopaedic Disorders 08 - Unilateral Hip Fracture (08.11) right intertrochancteric proximal hip fx . right impacted fx involving the distal radial metaphysis a nd mild comminuted distal ulnar fx. EATING: Activity did not occur on this shift EATING - SCORE: 0-UNK GROOMING: Activity did not occur on this shift GROOMING - SCORE: 0-UNK BATHING: Activity did not occur on this shift BATHING - SCORE: 0-UNK DRESSING - UPPER BODY: Activity did not occur on this shift Patient is not dressing in public clothing ARTICLES SCORE Total number of steps: 0 DRESSING - UPPER BODY - SCORE: 0-UNK DRESSING - LOWER BODY: Activity did not occur on this shift Patient is not dressing in public clothing ARTICLES SCORE Total number of steps: 0 DRESSING - LOWER BODY - SCORE: 0-UNK TOILETING: Activity did not occur on this shift TOILETING - SCORE: 0-UNK BLADDER MANAGEMENT: Activity did not occur on this shift BLADDER MANAGEMENT - SCORE: 7-IND BOWEL MANAGEMENT: Activity did not occur on this shift BOWEL MANAGEMENT - SCORE: 7-IND TRANSFERS: BED, CHAIR, WHEELCHAIR: TRANSFERS: BED, CHAIR, WHEELCHAIR - STEP 1: Does the patient require assistance of a person or device, or need extra time with bed, chair, or whe elchair transfers? Yes. TRANSFERS: BED, CHAIR, WHEELCHAIR - STEP 2: Does the patient require the assistance of a helper? No. Patient only requires an assistive device fo r bed, chair, wheelchair transfers such as a sliding board, grab bar, or brace, OR s/he takes more th an reasonable time, OR there is a safety concern when s/he performs the transfers TRANSFERS: BED, CHAIR, WHEELCHAIR - SCORE: 6-LISA TRANSFERS: TOILET: TRANSFERS: TOILET - STEP 1: Does the patient require the assistance of a person or device, or need extra time with toilet transfe rs? Yes. TRANSFERS: TOILET - STEP 2: Does the patient require the assistance of a helper? Yes. TRANSFERS: TOILET - STEP 3: How much assistance does the patient require from the helper? Only supervision, cuing, coaxing, OR he lp to set out transfer equipment or to lock brakes and/or lift foot rests TRANSFERS: TOILET - SCORE: 5-SUP TRANSFERS: SHOWER: Activity did not occur on this shift TRANSFERS: SHOWER - SCORE: 0-UNK TRANSFERS: TUB: Activity did not occur on this shift TRANSFERS: TUB - SCORE: 0-UNK LOCOMOTION: WALK: LOCOMOTION: WALK - STEP 1: Does the patient need help from a person or device, or need extra time to walk 150 feet? Yes. LOCOMOTION: WALK - STEP 2: How much assistance does the patient require to walk a minimum of 150 feet? Only supervision, cuing, or coaxing LOCOMOTION: WALK - SCORE: 5-SUP LOCOMOTION: WHEELCHAIR: LOCOMOTION: WHEELCHAIR - STEP 1: Does the patient need help to go 150 feet in a wheelchair? Yes. LOCOMOTION: WHEELCHAIR - STEP 2: How much assistance does the patient need from the helper? Only supervision, cuing, or coaxing LOCOMOTION: WHEELCHAIR - SCORE: 5-SUP LOCOMOTION: STAIRS: LOCOMOTION: STAIRS - STEP 1: Does the patient need help to go up and down 12 to 14 stairs? Yes. LOCOMOTION: STAIRS - STEP 2: How much assistance does the patient need from the helper to go a minimum of 12 to 14 stairs? Only in cidental help such as contact guarding or steadying LOCOMOTION: STAIRS - SCORE: 4-MIN COMPREHENSION: COMPREHENSION - SCORE: 0-UNK EXPRESSION EXPRESSION - SCORE: 0-UNK SOCIAL INTERACTION: SOCIAL INTERACTION - SCORE: 0-UNK PROBLEM SOLVING: PROBLEM SOLVING - SCORE: 0-UNK MEMORY: MEMORY - SCORE: 0-UNK SIGNATURE PANEL: The following modified sections: Transfers: Bed, Chair, Wheelchair - Score, Transfers: Toilet - Score , Locomotion: Walk - Score, Locomotion: Wheelchair - Score, Locomotion: Stairs - Score were [brian bolivar] signed by Shyam Bradley PTA on MonSep 28 2018 14:30:30 GMT-0600 (Central Standard Time)
[2018-09-28] MEDS: RIVAROXABAN 20 MG TABLET PO SCH (16:34)
--- NOTE | 2018-09-29 02:37 | FAST ---
SHIFT START DATE/TIME: 09/28/2018 19:00 (TOW DRIVER) SHIFT END DATE/TIME: 09/29/2018 07:00 (TOW DRIVER) NAME GISELLE TRUJILLO DATE OF : 1940 DATE OF ADMISSION: 09/21/2018 20:14 (TOW DRIVER) PHONE: AGE: 78 SSN# [id number] GENDER: Male ENCOUNTER PHYSICIAN: Dr. Yomi Campbell M.D. ADMISSION DIAGNOSIS: - Orthopaedic Disorders 08 - Unilateral Hip Fracture (08.11) right intertrochancteric proximal hip fx . right impacted fx involving the distal radial metaphysis a nd mild comminuted distal ulnar fx. EATING: Activity did not occur on this shift EATING - SCORE: 0-UNK GROOMING: Activity did not occur on this shift GROOMING - SCORE: 0-UNK BATHING: Activity did not occur on this shift BATHING - SCORE: 0-UNK DRESSING - UPPER BODY: Patient is not dressing in public clothing ARTICLES SCORE Total number of steps: 0 DRESSING - UPPER BODY - SCORE: 0-UNK DRESSING - LOWER BODY: Patient is not dressing in public clothing ARTICLES SCORE Total number of steps: 0 DRESSING - LOWER BODY - SCORE: 0-UNK TOILETING: TOILETING - STEP 1: Does the patient require the assistance of a person or device, or need extra time with toileting? Yes . TOILETING - STEP 2: Does the patient require the assistance of a helper? Yes. TOILETING - STEP 3: How much assistance does the patient require from the helper? Only supervision TOILETING - SCORE: 5-SUP BLADDER MANAGEMENT: BLADDER MANAGEMENT - STEP 1: Does the patient control the bladder completely and intentionally without equipment or devices or med ications, and is always continent? Yes. BLADDER MANAGEMENT - SCORE: 7-IND BOWEL MANAGEMENT: Activity did not occur on this shift BOWEL MANAGEMENT - SCORE: 7-IND TRANSFERS: BED, CHAIR, WHEELCHAIR: TRANSFERS: BED, CHAIR, WHEELCHAIR - STEP 1: Does the patient require assistance of a person or device, or need extra time with bed, chair, or whe elchair transfers? Yes. TRANSFERS: BED, CHAIR, WHEELCHAIR - STEP 2: Does the patient require the assistance of a helper? Yes. TRANSFERS: BED, CHAIR, WHEELCHAIR - STEP 3: How much assistance does the patient require from the helper? Only supervision TRANSFERS: BED, CHAIR, WHEELCHAIR - SCORE: 5-SUP TRANSFERS: TOILET: TRANSFERS: TOILET - STEP 1: Does the patient require the assistance of a person or device, or need extra time with toilet transfe rs? Yes. TRANSFERS: TOILET - STEP 2: Does the patient require the assistance of a helper? Yes. TRANSFERS: TOILET - STEP 3: How much assistance does the patient require from the helper? Only supervision, cuing, coaxing, OR he lp to set out transfer equipment or to lock brakes and/or lift foot rests TRANSFERS: TOILET - SCORE: 5-SUP TRANSFERS: SHOWER: Activity did not occur on this shift TRANSFERS: SHOWER - SCORE: 0-UNK TRANSFERS: TUB: Activity did not occur on this shift TRANSFERS: TUB - SCORE: 0-UNK LOCOMOTION: WALK: Activity did not occur on this shift LOCOMOTION: WALK - SCORE: 0-UNK LOCOMOTION: WHEELCHAIR: Activity did not occur on this shift LOCOMOTION: WHEELCHAIR - SCORE: 0-UNK COMPREHENSION: COMPREHENSION: TYPE: Both COMPREHENSION - STEP 1: Does the patient require help from a person or device, or need extra time to understand complex and a bstract ideas (such as current events, finances, discharge planning, medical issues, relationships, e tc)? No. COMPREHENSION - STEP 2: Does the patient need extra time, require an assistive device (such as glasses for visual comprehensi on or a hearing aid for auditory comprehension) or does s/he have mild difficulty understanding compl ex and abstract information? Yes. COMPREHENSION - SCORE: 6-LISA EXPRESSION EXPRESSION: TYPE: Both EXPRESSION - STEP 1: Does the patient require help from a person or device, or need extra time expressing complex and abst ract ideas (such as current events, finances, discharge planning, medical issues, relationships, etc) ? No. EXPRESSION - STEP 2: Does the patient need extra time, require an assistive device (such as augmentive communication syste m or a communication board), OR does s/he have mild difficulty expressing complex and abstract ideas (including mild dysarthria or mild word-find problems)? Yes. EXPRESSION - SCORE: 6-LISA SOCIAL INTERACTION: SOCIAL INTERACTION - STEP 1: Does the patient require a helper to interact with others in social and therapeutic situations? No. SOCIAL INTERACTION - STEP 2: Does the patient need extra time in social situations, OR does s/he interact with staff, other patien ts, and family members ONLY in structured environments, OR does s/he require medication for social in teraction? Yes, patient needs extra time SOCIAL INTERACTION - SCORE: 6-LISA PROBLEM SOLVING: PROBLEM SOLVING - STEP 1: Does the patient need help from a person or device, or need extra time to solve complex problems such as managing a checking account or confronting interpersonal problems? No. PROBLEM SOLVING - STEP 2: Does the patient require extra time to make decisions or solve problems, OR does s/he have slight dif ficulty reading, initiating, or self-correcting in unfamiliar situations? Yes, patient needs extra ti me. PROBLEM SOLVING - SCORE: 6-LISA MEMORY: MEMORY - STEP 1: Does the patient need help from a person or device, or need extra time to remember frequently encount ered people, daily routines, and executing requests? No. MEMORY - STEP 2: Does the patient have slight difficulty recognizing frequently encountered people, daily routines, or executing requests without the need for repetition or using self-initiated or environmental cues to remember? Yes. MEMORY - SCORE: 6-LISA
[2018-09-29] MEDS: HYDROCODONE/APAP 7.5/325 MG TAB PO PRN ×2 (07:10→17:07)
[2018-09-29] MEDS: FERROUS SULFATE 325 MG TAB PO SCH (08:02)
[2018-09-29] MEDS: DOCUSATE NA 100 MG CAP PO SCH (08:02)
[2018-09-29] MEDS: NEBIVOLOL HCL 20 MG TABLET PO SCH (08:02)
[2018-09-29] MEDS: ROSUVASTATIN 10 MG TAB PO SCH (08:02)
[2018-09-29] MEDS: FE SULF/FA/VIT B COMP & C TAB PO SCH (08:02)
[2018-09-29] MEDS: ASCORBIC ACID 500 MG TABLET PO SCH (08:03)
[2018-09-29] MEDS: PROMOD 30 ML DOSE PO SCH ×2 (08:05→20:36)
[2018-09-29] MEDS ORDERED: DOCUSATE NA/SENNA CONC 1 TAB PO PRN (10:57)
[2018-09-29] MEDS: TRAMADOL HCL 50 MG TAB PO PRN ×2 (12:09→21:04)
--- NOTE | 2018-09-29 14:49 | FAST ---
SHIFT START DATE/TIME: 09/29/2018 07:00 (CHANCERY CLERK) SHIFT END DATE/TIME: 09/29/2018 19:00 (CHANCERY CLERK) NAME GISELLE TRUJILLO DATE OF : 1940 DATE OF ADMISSION: 09/21/2018 20:14 (CHANCERY CLERK) PHONE: AGE: 78 SSN# [id number] GENDER: Male ENCOUNTER PHYSICIAN: Dr. Yomi Campbell M.D. ADMISSION DIAGNOSIS: - Orthopaedic Disorders 08 - Unilateral Hip Fracture (08.11) right intertrochancteric proximal hip fx . right impacted fx involving the distal radial metaphysis a nd mild comminuted distal ulnar fx. EATING: EATING - STEP 1: Does the patient require the assistance of a person or device, or need extra time when eating? Yes. EATING - STEP 2: Does the patient require the assistance of a helper? No, patient only requires an assistive device, O R s/he takes more than reasonable time to eat, OR there is a safety concern, OR s/he requires modifie d food consistency EATING - SCORE: 6-LISA GROOMING: Comb/brush hair Wash, rinse, and dry hands GROOMING - STEP 1: Does the patient require the assistance of a person or device, or need extra time when grooming? Yes. GROOMING - STEP 2: Does the patient require the assistance of a helper? No. The patient only requires an assistive devic e, OR takes more than reasonable time to groom, OR there is a concern for safety as the patient groom s GROOMING - SCORE: 6-LISA BATHING: Activity did not occur on this shift BATHING - SCORE: 0-UNK DRESSING - UPPER BODY: Activity did not occur on this shift ARTICLES SCORE Total number of steps: 0 DRESSING - UPPER BODY - SCORE: 0-UNK DRESSING - LOWER BODY: Activity did not occur on this shift ARTICLES SCORE Total number of steps: 0 DRESSING - LOWER BODY - SCORE: 0-UNK TOILETING: TOILETING - STEP 1: Does the patient require the assistance of a person or device, or need extra time with toileting? Yes . TOILETING - STEP 2: Does the patient require the assistance of a helper? Yes. TOILETING - STEP 3: How much assistance does the patient require from the helper? Only supervision TOILETING - SCORE: 5-SUP BLADDER MANAGEMENT: BLADDER MANAGEMENT - STEP 1: Does the patient control the bladder completely and intentionally without equipment or devices or med ications, and is always continent? No. BLADDER MANAGEMENT - STEP 2: Does the patient require the assistance of a helper? Yes. BLADDER MANAGEMENT - STEP 3: How much assistance does the patient require from the helper? Only set-up of equipment - such as plac ing it within reach of the patient or emptying a device - to maintain either satisfactory voiding pat tern or managing an external device, such as an absorbent pad, ileal device, or catheter BLADDER MANAGEMENT - SCORE: 5-SUP BLADDER MANAGEMENT - FREQUENCY OF ACCIDENTS: BLADDER MANAGEMENT(FA) - STEP 1: How many accidents has the patient had during the current shift? 0 BOWEL MANAGEMENT: Activity did not occur on this shift BOWEL MANAGEMENT - SCORE: 7-IND BOWEL MANAGEMENT - FREQUENCY OF ACCIDENTS: BOWEL MANAGEMENT(FA) - STEP 1: How many accidents has the patient had during the current shift? 0 TRANSFERS: BED, CHAIR, WHEELCHAIR: TRANSFERS: BED, CHAIR, WHEELCHAIR - STEP 1: Does the patient require assistance of a person or device, or need extra time with bed, chair, or whe elchair transfers? Yes. TRANSFERS: BED, CHAIR, WHEELCHAIR - STEP 2: Does the patient require the assistance of a helper? Yes. TRANSFERS: BED, CHAIR, WHEELCHAIR - STEP 3: How much assistance does the patient require from the helper? Only supervision TRANSFERS: BED, CHAIR, WHEELCHAIR - SCORE: 5-SUP TRANSFERS: TOILET: TRANSFERS: TOILET - STEP 1: Does the patient require the assistance of a person or device, or need extra time with toilet transfe rs? Yes. TRANSFERS: TOILET - STEP 2: Does the patient require the assistance of a helper? No. Patient only requires an assistive device [place] as a grab bar or special seat, OR s/he takes more than reasonable time to perform toilet transfers , OR there is a safety concern when s/he performs toilet transfers. TRANSFERS: TOILET - SCORE: 6-LISA TRANSFERS: SHOWER: Activity did not occur on this shift TRANSFERS: SHOWER - SCORE: 0-UNK TRANSFERS: TUB: Activity did not occur on this shift TRANSFERS: TUB - SCORE: 0-UNK LOCOMOTION: WALK: Activity did not occur on this shift LOCOMOTION: WALK - SCORE: 0-UNK LOCOMOTION: WHEELCHAIR: LOCOMOTION: WHEELCHAIR - STEP 1: Does the patient need help to go 150 feet in a wheelchair? Yes. LOCOMOTION: WHEELCHAIR - STEP 2: How much assistance does the patient need from the helper? Only supervision, cuing, or coaxing LOCOMOTION: WHEELCHAIR - SCORE: 5-SUP COMPREHENSION: COMPREHENSION: TYPE: Both COMPREHENSION - STEP 1: Does the patient require help from a person or device, or need extra time to understand complex and a bstract ideas (such as current events, finances, discharge planning, medical issues, relationships, e tc)? No. COMPREHENSION - STEP 2: Does the patient need extra time, require an assistive device (such as glasses for visual comprehensi on or a hearing aid for auditory comprehension) or does s/he have mild difficulty understanding compl ex and abstract information? Yes. COMPREHENSION - SCORE: 6-LISA EXPRESSION EXPRESSION: TYPE: Both EXPRESSION - STEP 1: Does the patient require help from a person or device, or need extra time expressing complex and abst ract ideas (such as current events, finances, discharge planning, medical issues, relationships, etc) ? No. EXPRESSION - STEP 2: Does the patient need extra time, require an assistive device (such as augmentive communication syste m or a communication board), OR does s/he have mild difficulty expressing complex and abstract ideas (including mild dysarthria or mild word-find problems)? Yes. EXPRESSION - SCORE: 6-LISA SOCIAL INTERACTION: SOCIAL INTERACTION - STEP 1: Does the patient require a helper to interact with others in social and therapeutic situations? No. SOCIAL INTERACTION - STEP 2: Does the patient need extra time in social situations, OR does s/he interact with staff, other patien ts, and family members ONLY in structured environments, OR does s/he require medication for social in teraction? No. SOCIAL INTERACTION - SCORE: 7-IND PROBLEM SOLVING: PROBLEM SOLVING - STEP 1: Does the patient need help from a person or device, or need extra time to solve complex problems such as managing a checking account or confronting interpersonal problems? No. PROBLEM SOLVING - STEP 2: Does the patient require extra time to make decisions or solve problems, OR does s/he have slight dif ficulty reading, initiating, or self-correcting in unfamiliar situations? Yes, patient needs extra ti me. PROBLEM SOLVING - SCORE: 6-LISA MEMORY: MEMORY - STEP 1: Does the patient need help from a person or device, or need extra time to remember frequently encount ered people, daily routines, and executing requests? No. MEMORY - STEP 2: Does the patient have slight difficulty recognizing frequently encountered people, daily routines, or executing requests without the need for repetition or using self-initiated or environmental cues to remember? Yes. MEMORY - SCORE: 6-LISA SIGNATURE PANEL: The following modified sections: Eating - Score, Grooming - Score, Bathing - Score, Dressing - Upper Body - Score, Dressing - Lower Body - Score, Toileting - Score, Bladder Management - Score, Bowel Man agement - Score, Transfers: Bed, Chair, Wheelchair - Score, Transfers: Toilet - Score, Transfers: Neli wer - Score, Transfers: Tub - Score, Locomotion: Walk - Score, Locomotion: Wheelchair - Score, Compre hension - Score, Expression - Score, Social Interaction - Score, Problem Solving - Score, Memory - Sc ore were [electronically] signed by Sandra Mckeon C.N.A. on Sat Sep 29 2018 14:48:25 GMT-0600 (Cent[facility] [place] Standard Time)
[2018-09-29] MEDS: RIVAROXABAN 20 MG TABLET PO SCH (17:07)
--- NOTE | 2018-09-30 02:59 | FAST ---
SHIFT START DATE/TIME: 09/29/2018 19:00 (DIRECTOR TARGETED MARKETING) SHIFT END DATE/TIME: 09/30/2018 07:00 (DIRECTOR TARGETED MARKETING) NAME GISELLE TRUJILLO DATE OF : 1940 DATE OF ADMISSION: 09/21/2018 20:14 (DIRECTOR TARGETED MARKETING) PHONE: AGE: 78 SSN# [id number] GENDER: Male ENCOUNTER PHYSICIAN: Dr. Yomi Campbell M.D. ADMISSION DIAGNOSIS: - Orthopaedic Disorders 08 - Unilateral Hip Fracture (08.11) right intertrochancteric proximal hip fx . right impacted fx involving the distal radial metaphysis a nd mild comminuted distal ulnar fx. EATING: Activity did not occur on this shift EATING - SCORE: 0-UNK GROOMING: Wash, rinse, and dry hands GROOMING - STEP 1: Does the patient require the assistance of a person or device, or need extra time when grooming? Yes. GROOMING - STEP 2: Does the patient require the assistance of a helper? No. The patient only requires an assistive devic e, OR takes more than reasonable time to groom, OR there is a concern for safety as the patient groom s GROOMING - SCORE: 6-LISA BATHING: Activity did not occur on this shift BATHING - SCORE: 0-UNK DRESSING - UPPER BODY: Patient is not dressing in public clothing ARTICLES SCORE Total number of steps: 0 DRESSING - UPPER BODY - SCORE: 0-UNK DRESSING - LOWER BODY: Patient is not dressing in public clothing ARTICLES SCORE Total number of steps: 0 DRESSING - LOWER BODY - SCORE: 0-UNK TOILETING: TOILETING - STEP 1: Does the patient require the assistance of a person or device, or need extra time with toileting? Yes . TOILETING - STEP 2: Does the patient require the assistance of a helper? Yes. TOILETING - STEP 3: How much assistance does the patient require from the helper? Only supervision TOILETING - SCORE: 5-SUP BLADDER MANAGEMENT: BLADDER MANAGEMENT - STEP 1: Does the patient control the bladder completely and intentionally without equipment or devices or med ications, and is always continent? No. BLADDER MANAGEMENT - STEP 2: Does the patient require the assistance of a helper? No, patient requires and independently uses an a ssistive device, such as a urinal, bedpan, bedside commode, catheter, absorbent pad, or collecting de vice BLADDER MANAGEMENT - SCORE: 6-LISA BOWEL MANAGEMENT: Activity did not occur on this shift BOWEL MANAGEMENT - SCORE: 7-IND TRANSFERS: BED, CHAIR, WHEELCHAIR: TRANSFERS: BED, CHAIR, WHEELCHAIR - STEP 1: Does the patient require assistance of a person or device, or need extra time with bed, chair, or whe elchair transfers? Yes. TRANSFERS: BED, CHAIR, WHEELCHAIR - STEP 2: Does the patient require the assistance of a helper? Yes. TRANSFERS: BED, CHAIR, WHEELCHAIR - STEP 3: How much assistance does the patient require from the helper? Lifting of the legs TRANSFERS: BED, CHAIR, WHEELCHAIR - STEP 4: How many legs does the patient require the helper to lift? both legs TRANSFERS: BED, CHAIR, WHEELCHAIR - SCORE: 3-MOD TRANSFERS: TOILET: TRANSFERS: TOILET - STEP 1: Does the patient require the assistance of a person or device, or need extra time with toilet transfe rs? Yes. TRANSFERS: TOILET - STEP 2: Does the patient require the assistance of a helper? Yes. TRANSFERS: TOILET - STEP 3: How much assistance does the patient require from the helper? Only supervision, cuing, coaxing, OR he lp to set out transfer equipment or to lock brakes and/or lift foot rests TRANSFERS: TOILET - SCORE: 5-SUP TRANSFERS: SHOWER: Activity did not occur on this shift TRANSFERS: SHOWER - SCORE: 0-UNK TRANSFERS: TUB: Activity did not occur on this shift TRANSFERS: TUB - SCORE: 0-UNK LOCOMOTION: WALK: Activity did not occur on this shift LOCOMOTION: WALK - SCORE: 0-UNK LOCOMOTION: WHEELCHAIR: Activity did not occur on this shift LOCOMOTION: WHEELCHAIR - SCORE: 0-UNK COMPREHENSION: COMPREHENSION: TYPE: Both COMPREHENSION - STEP 1: Does the patient require help from a person or device, or need extra time to understand complex and a bstract ideas (such as current events, finances, discharge planning, medical issues, relationships, e tc)? No. COMPREHENSION - STEP 2: Does the patient need extra time, require an assistive device (such as glasses for visual comprehensi on or a hearing aid for auditory comprehension) or does s/he have mild difficulty understanding compl ex and abstract information? Yes. COMPREHENSION - SCORE: 6-LISA EXPRESSION EXPRESSION: TYPE: Both EXPRESSION - STEP 1: Does the patient require help from a person or device, or need extra time expressing complex and abst ract ideas (such as current events, finances, discharge planning, medical issues, relationships, etc) ? No. EXPRESSION - STEP 2: Does the patient need extra time, require an assistive device (such as augmentive communication syste m or a communication board), OR does s/he have mild difficulty expressing complex and abstract ideas (including mild dysarthria or mild word-find problems)? No. EXPRESSION - SCORE: 7-IND SOCIAL INTERACTION: SOCIAL INTERACTION - STEP 1: Does the patient require a helper to interact with others in social and therapeutic situations? No. SOCIAL INTERACTION - STEP 2: Does the patient need extra time in social situations, OR does s/he interact with staff, other patien ts, and family members ONLY in structured environments, OR does s/he require medication for social in teraction? Yes, patient needs extra time SOCIAL INTERACTION - SCORE: 6-LISA PROBLEM SOLVING: PROBLEM SOLVING - STEP 1: Does the patient need help from a person or device, or need extra time to solve complex problems such as managing a checking account or confronting interpersonal problems? No. PROBLEM SOLVING - STEP 2: Does the patient require extra time to make decisions or solve problems, OR does s/he have slight dif ficulty reading, initiating, or self-correcting in unfamiliar situations? Yes, patient needs extra ti me. PROBLEM SOLVING - SCORE: 6-LISA MEMORY: MEMORY - STEP 1: Does the patient need help from a person or device, or need extra time to remember frequently encount ered people, daily routines, and executing requests? No. MEMORY - STEP 2: Does the patient have slight difficulty recognizing frequently encountered people, daily routines, or executing requests without the need for repetition or using self-initiated or environmental cues to remember? No. MEMORY - SCORE: 7-IND SIGNATURE PANEL: The following modified sections: Eating - Score, Grooming - Score, Dressing - Upper Body - Score, Sebastien ssing - Lower Body - Score, Toileting - Score, Bladder Management - Score, Bowel Management - Score, Transfers: Bed, Chair, Wheelchair - Score, Transfers: Toilet - Score, Transfers: Shower - Score, Horta sfers: Tub - Score, Locomotion: Walk - Score, Locomotion: Wheelchair - Score, Comprehension - Score, Expression - Score, Social Interaction - Score, Problem Solving - Score, Memory - Score were [electro nically] signed by Oliva Ovalle CNA on MonSep 30 2018 02:58:51 GMT-0600 (Central Standard Time)
[2018-09-30] MEDS: NEBIVOLOL HCL 20 MG TABLET PO SCH (08:07)
[2018-09-30] MEDS: ASCORBIC ACID 500 MG TABLET PO SCH (08:07)
[2018-09-30] MEDS: FERROUS SULFATE 325 MG TAB PO SCH (08:08)
[2018-09-30] MEDS: PROMOD 30 ML DOSE PO SCH ×2 (08:08→19:16)
[2018-09-30] MEDS: DOCUSATE NA 100 MG CAP PO SCH (08:08)
[2018-09-30] MEDS: FE SULF/FA/VIT B COMP & C TAB PO SCH (08:08)
[2018-09-30] MEDS: TRAMADOL HCL 50 MG TAB PO PRN ×2 (08:08→17:00)
[2018-09-30] MEDS: HYDROCODONE/APAP 7.5/325 MG TAB PO PRN ×2 (12:02→20:42)
[2018-09-30] MEDS ORDERED: D50W 25 GM/50 ML SYRINGE IV PRN (14:26)
[2018-09-30] MEDS ORDERED: GLUCAGON 1 MG/VIAL IM PRN (14:26)
--- NOTE | 2018-09-30 15:10 | FAST ---
SHIFT START DATE/TIME: 09/30/2018 07:00 (METALLURGICAL INSPECTOR) SHIFT END DATE/TIME: 09/30/2018 19:00 (METALLURGICAL INSPECTOR) NAME GISELLE TRUJILLO DATE OF : 1940 DATE OF ADMISSION: 09/21/2018 20:14 (METALLURGICAL INSPECTOR) PHONE: AGE: 78 SSN# [id number] GENDER: Male ENCOUNTER PHYSICIAN: Dr. Yomi Campbell M.D. ADMISSION DIAGNOSIS: - Orthopaedic Disorders 08 - Unilateral Hip Fracture (08.11) right intertrochancteric proximal hip fx . right impacted fx involving the distal radial metaphysis a nd mild comminuted distal ulnar fx. EATING: EATING - STEP 1: Does the patient require the assistance of a person or device, or need extra time when eating? Yes. EATING - STEP 2: Does the patient require the assistance of a helper? No, patient only requires an assistive device, O R s/he takes more than reasonable time to eat, OR there is a safety concern, OR s/he requires modifie d food consistency EATING - SCORE: 6-LISA GROOMING: Comb/brush hair Oral care Wash, rinse, and dry face Wash, rinse, and dry hands GROOMING - STEP 1: Does the patient require the assistance of a person or device, or need extra time when grooming? Yes. GROOMING - STEP 2: Does the patient require the assistance of a helper? No. The patient only requires an assistive devic e, OR takes more than reasonable time to groom, OR there is a concern for safety as the patient groom s GROOMING - SCORE: 6-LISA BATHING: Activity did not occur on this shift BATHING - SCORE: 0-UNK DRESSING - UPPER BODY: Activity did not occur on this shift ARTICLES SCORE Total number of steps: 0 DRESSING - UPPER BODY - SCORE: 0-UNK DRESSING - LOWER BODY: Activity did not occur on this shift ARTICLES SCORE Total number of steps: 0 DRESSING - LOWER BODY - SCORE: 0-UNK TOILETING: TOILETING - STEP 1: Does the patient require the assistance of a person or device, or need extra time with toileting? Yes . TOILETING - STEP 2: Does the patient require the assistance of a helper? Yes. TOILETING - STEP 3: How much assistance does the patient require from the helper? Only supervision TOILETING - SCORE: 5-SUP BLADDER MANAGEMENT: BLADDER MANAGEMENT - STEP 1: Does the patient control the bladder completely and intentionally without equipment or devices or med ications, and is always continent? No. BLADDER MANAGEMENT - STEP 2: Does the patient require the assistance of a helper? Yes. BLADDER MANAGEMENT - STEP 3: How much assistance does the patient require from the helper? Only supervision, stand-by, cuing, or c oaxing BLADDER MANAGEMENT - SCORE: 5-SUP BLADDER MANAGEMENT - FREQUENCY OF ACCIDENTS: BLADDER MANAGEMENT(FA) - STEP 1: How many accidents has the patient had during the current shift? 0 BOWEL MANAGEMENT: Activity did not occur on this shift BOWEL MANAGEMENT - SCORE: 7-IND BOWEL MANAGEMENT - FREQUENCY OF ACCIDENTS: BOWEL MANAGEMENT(FA) - STEP 1: How many accidents has the patient had during the current shift? 0 TRANSFERS: BED, CHAIR, WHEELCHAIR: TRANSFERS: BED, CHAIR, WHEELCHAIR - STEP 1: Does the patient require assistance of a person or device, or need extra time with bed, chair, or whe elchair transfers? Yes. TRANSFERS: BED, CHAIR, WHEELCHAIR - STEP 2: Does the patient require the assistance of a helper? Yes. TRANSFERS: BED, CHAIR, WHEELCHAIR - STEP 3: How much assistance does the patient require from the helper? Only supervision TRANSFERS: BED, CHAIR, WHEELCHAIR - SCORE: 5-SUP TRANSFERS: TOILET: TRANSFERS: TOILET - STEP 1: Does the patient require the assistance of a person or device, or need extra time with toilet transfe rs? Yes. TRANSFERS: TOILET - STEP 2: Does the patient require the assistance of a helper? Yes. TRANSFERS: TOILET - STEP 3: How much assistance does the patient require from the helper? Only supervision, cuing, coaxing, OR he lp to set out transfer equipment or to lock brakes and/or lift foot rests TRANSFERS: TOILET - SCORE: 5-SUP TRANSFERS: SHOWER: Activity did not occur on this shift TRANSFERS: SHOWER - SCORE: 0-UNK TRANSFERS: TUB: Activity did not occur on this shift TRANSFERS: TUB - SCORE: 0-UNK LOCOMOTION: WALK: Activity did not occur on this shift LOCOMOTION: WALK - SCORE: 0-UNK LOCOMOTION: WHEELCHAIR: LOCOMOTION: WHEELCHAIR - STEP 1: Does the patient need help to go 150 feet in a wheelchair? Yes. LOCOMOTION: WHEELCHAIR - STEP 2: How much assistance does the patient need from the helper? Only supervision, cuing, or coaxing LOCOMOTION: WHEELCHAIR - SCORE: 5-SUP COMPREHENSION: COMPREHENSION: TYPE: Both COMPREHENSION - STEP 1: Does the patient require help from a person or device, or need extra time to understand complex and a bstract ideas (such as current events, finances, discharge planning, medical issues, relationships, e tc)? No. COMPREHENSION - STEP 2: Does the patient need extra time, require an assistive device (such as glasses for visual comprehensi on or a hearing aid for auditory comprehension) or does s/he have mild difficulty understanding compl ex and abstract information? Yes. COMPREHENSION - SCORE: 6-LISA EXPRESSION EXPRESSION: TYPE: Both EXPRESSION - STEP 1: Does the patient require help from a person or device, or need extra time expressing complex and abst ract ideas (such as current events, finances, discharge planning, medical issues, relationships, etc) ? No. EXPRESSION - STEP 2: Does the patient need extra time, require an assistive device (such as augmentive communication syste m or a communication board), OR does s/he have mild difficulty expressing complex and abstract ideas (including mild dysarthria or mild word-find problems)? Yes. EXPRESSION - SCORE: 6-LISA SOCIAL INTERACTION: SOCIAL INTERACTION - STEP 1: Does the patient require a helper to interact with others in social and therapeutic situations? No. SOCIAL INTERACTION - STEP 2: Does the patient need extra time in social situations, OR does s/he interact with staff, other patien ts, and family members ONLY in structured environments, OR does s/he require medication for social in teraction? No. SOCIAL INTERACTION - SCORE: 7-IND PROBLEM SOLVING: PROBLEM SOLVING - STEP 1: Does the patient need help from a person or device, or need extra time to solve complex problems such as managing a checking account or confronting interpersonal problems? No. PROBLEM SOLVING - STEP 2: Does the patient require extra time to make decisions or solve problems, OR does s/he have slight dif ficulty reading, initiating, or self-correcting in unfamiliar situations? Yes, patient needs extra ti me. PROBLEM SOLVING - SCORE: 6-LISA MEMORY: MEMORY - STEP 1: Does the patient need help from a person or device, or need extra time to remember frequently encount ered people, daily routines, and executing requests? No. MEMORY - STEP 2: Does the patient have slight difficulty recognizing frequently encountered people, daily routines, or executing requests without the need for repetition or using self-initiated or environmental cues to remember? Yes. MEMORY - SCORE: 6-LISA SIGNATURE PANEL: The following modified sections: Eating - Score, Grooming - Score, Bathing - Score, Dressing - Upper Body - Score, Dressing - Lower Body - Score, Toileting - Score, Bladder Management - Score, Bowel Man agement - Score, Transfers: Bed, Chair, Wheelchair - Score, Transfers: Toilet - Score, Transfers: Neli wer - Score, Transfers: Tub - Score, Locomotion: Walk - Score, Locomotion: Wheelchair - Score, Compre hension - Score, Expression - Score, Social Interaction - Score, Problem Solving - Score, Memory - Sc ore were [electronically] signed by Sandra Mckeon C.N.A. on MonSep 30 2018 15:09:51 GMT-0600 (Centra l Standard Time)
[2018-09-30] MEDS ORDERED: INSULIN -REGULAR HUMAN 50 UNIT/0.5 ML ML SQ SCH (16:30)
[2018-09-30] MEDS: RIVAROXABAN 20 MG TABLET PO SCH (17:00)
--- NOTE | 2018-10-01 03:19 | FAST ---
SHIFT START DATE/TIME: 09/30/2018 19:00 (SUBSTATION OPERATOR TRANSFORMING) SHIFT END DATE/TIME: 10/01/2018 07:00 (SUBSTATION OPERATOR TRANSFORMING) NAME GISELLE TRUJILLO DATE OF : 1940 DATE OF ADMISSION: 09/21/2018 20:14 (SUBSTATION OPERATOR TRANSFORMING) PHONE: AGE: 78 SSN# [id number] GENDER: Male ENCOUNTER PHYSICIAN: Dr. Yomi Campbell M.D. ADMISSION DIAGNOSIS: - Orthopaedic Disorders 08 - Unilateral Hip Fracture (08.11) right intertrochancteric proximal hip fx . right impacted fx involving the distal radial metaphysis a nd mild comminuted distal ulnar fx. EATING: Activity did not occur on this shift EATING - SCORE: 0-UNK GROOMING: Wash, rinse, and dry hands GROOMING - STEP 1: Does the patient require the assistance of a person or device, or need extra time when grooming? Yes. GROOMING - STEP 2: Does the patient require the assistance of a helper? No. The patient only requires an assistive devic e, OR takes more than reasonable time to groom, OR there is a concern for safety as the patient groom s GROOMING - SCORE: 6-LISA BATHING: Activity did not occur on this shift BATHING - SCORE: 0-UNK DRESSING - UPPER BODY: Patient is not dressing in public clothing ARTICLES SCORE Total number of steps: 0 DRESSING - UPPER BODY - SCORE: 0-UNK DRESSING - LOWER BODY: Patient is not dressing in public clothing ARTICLES SCORE Total number of steps: 0 DRESSING - LOWER BODY - SCORE: 0-UNK TOILETING: TOILETING - STEP 1: Does the patient require the assistance of a person or device, or need extra time with toileting? Yes . TOILETING - STEP 2: Does the patient require the assistance of a helper? No. TOILETING - SCORE: 6-LISA BLADDER MANAGEMENT: BLADDER MANAGEMENT - STEP 1: Does the patient control the bladder completely and intentionally without equipment or devices or med ications, and is always continent? Yes. BLADDER MANAGEMENT - SCORE: 7-IND BOWEL MANAGEMENT: Activity did not occur on this shift BOWEL MANAGEMENT - SCORE: 7-IND TRANSFERS: BED, CHAIR, WHEELCHAIR: TRANSFERS: BED, CHAIR, WHEELCHAIR - STEP 1: Does the patient require assistance of a person or device, or need extra time with bed, chair, or whe elchair transfers? Yes. TRANSFERS: BED, CHAIR, WHEELCHAIR - STEP 2: Does the patient require the assistance of a helper? Yes. TRANSFERS: BED, CHAIR, WHEELCHAIR - STEP 3: How much assistance does the patient require from the helper? Lifting of the legs TRANSFERS: BED, CHAIR, WHEELCHAIR - STEP 4: How many legs does the patient require the helper to lift? both legs TRANSFERS: BED, CHAIR, WHEELCHAIR - SCORE: 3-MOD TRANSFERS: TOILET: TRANSFERS: TOILET - STEP 1: Does the patient require the assistance of a person or device, or need extra time with toilet transfe rs? Yes. TRANSFERS: TOILET - STEP 2: Does the patient require the assistance of a helper? No. Patient only requires an assistive device [place] as a grab bar or special seat, OR s/he takes more than reasonable time to perform toilet transfers , OR there is a safety concern when s/he performs toilet transfers. TRANSFERS: TOILET - SCORE: 6-LISA TRANSFERS: SHOWER: Activity did not occur on this shift TRANSFERS: SHOWER - SCORE: 0-UNK TRANSFERS: TUB: Activity did not occur on this shift TRANSFERS: TUB - SCORE: 0-UNK LOCOMOTION: WALK: Activity did not occur on this shift LOCOMOTION: WALK - SCORE: 0-UNK LOCOMOTION: WHEELCHAIR: Activity did not occur on this shift LOCOMOTION: WHEELCHAIR - SCORE: 0-UNK COMPREHENSION: COMPREHENSION: TYPE: Both COMPREHENSION - STEP 1: Does the patient require help from a person or device, or need extra time to understand complex and a bstract ideas (such as current events, finances, discharge planning, medical issues, relationships, e tc)? No. COMPREHENSION - STEP 2: Does the patient need extra time, require an assistive device (such as glasses for visual comprehensi on or a hearing aid for auditory comprehension) or does s/he have mild difficulty understanding compl ex and abstract information? Yes. COMPREHENSION - SCORE: 6-LISA EXPRESSION EXPRESSION: TYPE: Both EXPRESSION - STEP 1: Does the patient require help from a person or device, or need extra time expressing complex and abst ract ideas (such as current events, finances, discharge planning, medical issues, relationships, etc) ? No. EXPRESSION - STEP 2: Does the patient need extra time, require an assistive device (such as augmentive communication syste m or a communication board), OR does s/he have mild difficulty expressing complex and abstract ideas (including mild dysarthria or mild word-find problems)? No. EXPRESSION - SCORE: 7-IND SOCIAL INTERACTION: SOCIAL INTERACTION - STEP 1: Does the patient require a helper to interact with others in social and therapeutic situations? No. SOCIAL INTERACTION - STEP 2: Does the patient need extra time in social situations, OR does s/he interact with staff, other patien ts, and family members ONLY in structured environments, OR does s/he require medication for social in teraction? Yes, patient needs extra time SOCIAL INTERACTION - SCORE: 6-LISA PROBLEM SOLVING: PROBLEM SOLVING - STEP 1: Does the patient need help from a person or device, or need extra time to solve complex problems such as managing a checking account or confronting interpersonal problems? No. PROBLEM SOLVING - STEP 2: Does the patient require extra time to make decisions or solve problems, OR does s/he have slight dif ficulty reading, initiating, or self-correcting in unfamiliar situations? Yes, patient needs extra ti me. PROBLEM SOLVING - SCORE: 6-LISA MEMORY: MEMORY - STEP 1: Does the patient need help from a person or device, or need extra time to remember frequently encount ered people, daily routines, and executing requests? No. MEMORY - STEP 2: Does the patient have slight difficulty recognizing frequently encountered people, daily routines, or executing requests without the need for repetition or using self-initiated or environmental cues to remember? No. MEMORY - SCORE: 7-IND SIGNATURE PANEL: The following modified sections: Eating - Score, Grooming - Score, Dressing - Upper Body - Score, Sebastien ssing - Lower Body - Score, Toileting - Score, Bladder Management - Score, Bowel Management - Score, Transfers: Bed, Chair, Wheelchair - Score, Transfers: Toilet - Score, Transfers: Shower - Score, Horta sfers: Tub - Score, Locomotion: Walk - Score, Locomotion: Wheelchair - Score, Comprehension - Score, Expression - Score, Social Interaction - Score, Problem Solving - Score, Memory - Score were [electro nically] signed by Oliva Ovalle CNA on MonOct 01 2018 03:18:25 GMT-0600 (Central Standard Time)
[2018-10-01] MEDS: HYDROCODONE/APAP 7.5/325 MG TAB PO PRN ×3 (06:50→21:02)
[2018-10-01] MEDS: DOCUSATE NA 100 MG CAP PO SCH (06:52)
[2018-10-01] MEDS: ROSUVASTATIN 10 MG TAB PO SCH (06:52)
[2018-10-01] MEDS: ASCORBIC ACID 500 MG TABLET PO SCH (06:52)
[2018-10-01] MEDS: NEBIVOLOL HCL 20 MG TABLET PO SCH (06:52)
[2018-10-01] MEDS: FE SULF/FA/VIT B COMP & C TAB PO SCH (06:52)
[2018-10-01] MEDS: FERROUS SULFATE 325 MG TAB PO SCH (06:52)
[2018-10-01] MEDS: PROMOD 30 ML DOSE PO SCH ×2 (06:53→21:00)
--- NOTE | 2018-10-01 14:49 | FAST ---
ENCOUNTER DATE AND TIME: 10/01/2018 08:00 (STRIKE PLANNING APPLICATIONS) NAME GISELLE TRUJILLO DATE OF : 1940 DATE OF ADMISSION: 09/21/2018 20:14 (STRIKE PLANNING APPLICATIONS) PHONE: AGE: 78 SSN# [id number] GENDER: Male ENCOUNTER PHYSICIAN: Dr. Yomi Campbell M.D. ADMISSION DIAGNOSIS: - Orthopaedic Disorders 08 - Unilateral Hip Fracture (08.11) right intertrochancteric proximal hip fx . right impacted fx involving the distal radial metaphysis a nd mild comminuted distal ulnar fx. EATING: Activity did not occur on this shift EATING - SCORE: 0-UNK GROOMING: Activity did not occur on this shift GROOMING - SCORE: 0-UNK BATHING: Activity did not occur on this shift BATHING - SCORE: 0-UNK DRESSING - UPPER BODY: Activity did not occur on this shift Patient is not dressing in public clothing ARTICLES SCORE Total number of steps: 0 DRESSING - UPPER BODY - SCORE: 0-UNK DRESSING - LOWER BODY: Activity did not occur on this shift Patient is not dressing in public clothing ARTICLES SCORE Total number of steps: 0 DRESSING - LOWER BODY - SCORE: 0-UNK TOILETING: Activity did not occur on this shift TOILETING - SCORE: 0-UNK BLADDER MANAGEMENT: Activity did not occur on this shift BLADDER MANAGEMENT - SCORE: 7-IND BOWEL MANAGEMENT: Activity did not occur on this shift BOWEL MANAGEMENT - SCORE: 7-IND TRANSFERS: BED, CHAIR, WHEELCHAIR: TRANSFERS: BED, CHAIR, WHEELCHAIR - STEP 1: Does the patient require assistance of a person or device, or need extra time with bed, chair, or whe elchair transfers? Yes. TRANSFERS: BED, CHAIR, WHEELCHAIR - STEP 2: Does the patient require the assistance of a helper? No. Patient only requires an assistive device fo r bed, chair, wheelchair transfers such as a sliding board, grab bar, or brace, OR s/he takes more th an reasonable time, OR there is a safety concern when s/he performs the transfers TRANSFERS: BED, CHAIR, WHEELCHAIR - SCORE: 6-LISA TRANSFERS: TOILET: Activity did not occur on this shift TRANSFERS: TOILET - SCORE: 0-UNK TRANSFERS: SHOWER: Activity did not occur on this shift TRANSFERS: SHOWER - SCORE: 0-UNK TRANSFERS: TUB: Activity did not occur on this shift TRANSFERS: TUB - SCORE: 0-UNK LOCOMOTION: WALK: LOCOMOTION: WALK - STEP 1: Does the patient need help from a person or device, or need extra time to walk 150 feet? No. LOCOMOTION: WALK - STEP 2: Does the patient need an assistive device (such as an orthosis, prosthesis, crutches, or walker) to g o 150 feet, OR does s/he take more than reasonable time, OR is there a concern for safety? Yes, the p atient needs an assistive device LOCOMOTION: WALK - SCORE: 6-LISA LOCOMOTION: WHEELCHAIR: Activity did not occur on this shift LOCOMOTION: WHEELCHAIR - SCORE: 0-UNK LOCOMOTION: STAIRS: LOCOMOTION: STAIRS - STEP 1: Does the patient need help to go up and down 12 to 14 stairs? No. LOCOMOTION: STAIRS - STEP 2: Does the patient require an assistive device - such as handrails or cane - to go up and down one flig ht of stairs, OR does s/he take more than reasonable time, OR is there a concern for safety? Yes, the patient requires an assistive device LOCOMOTION: STAIRS - SCORE: 6-LISA COMPREHENSION: COMPREHENSION - SCORE: 0-UNK EXPRESSION EXPRESSION - SCORE: 0-UNK SOCIAL INTERACTION: SOCIAL INTERACTION - SCORE: 0-UNK PROBLEM SOLVING: PROBLEM SOLVING - SCORE: 0-UNK MEMORY: MEMORY - SCORE: 0-UNK SIGNATURE PANEL: The following modified sections: Transfers: Bed, Chair, Wheelchair - Score, Transfers: Toilet - Score , Locomotion: Walk - Score, Locomotion: Wheelchair - Score, Locomotion: Stairs - Score were [brian bolivar] signed by Cabrera Kelley PT on MonOct 01 2018 14:48:05 GMT-0600 (Central Standard Time)
--- NOTE | 2018-10-01 15:15 | FAST ---
SHIFT START DATE/TIME: 10/01/2018 07:00 (MANAGER BUDGET) SHIFT END DATE/TIME: 10/01/2018 19:00 (MANAGER BUDGET) NAME GISELLE TRUJILLO DATE OF : 1940 DATE OF ADMISSION: 09/21/2018 20:14 (MANAGER BUDGET) PHONE: AGE: 78 SSN# [id number] GENDER: Male ENCOUNTER PHYSICIAN: Dr. Yomi Campbell M.D. ADMISSION DIAGNOSIS: - Orthopaedic Disorders 08 - Unilateral Hip Fracture (08.11) right intertrochancteric proximal hip fx . right impacted fx involving the distal radial metaphysis a nd mild comminuted distal ulnar fx. EATING: EATING - STEP 1: Does the patient require the assistance of a person or device, or need extra time when eating? Yes. EATING - STEP 2: Does the patient require the assistance of a helper? No, patient only requires an assistive device, O R s/he takes more than reasonable time to eat, OR there is a safety concern, OR s/he requires modifie d food consistency EATING - SCORE: 6-LISA GROOMING: Comb/brush hair Oral care Wash, rinse, and dry face Wash, rinse, and dry hands GROOMING - STEP 1: Does the patient require the assistance of a person or device, or need extra time when grooming? No. GROOMING - SCORE: 7-IND BATHING: Activity did not occur on this shift BATHING - SCORE: 0-UNK DRESSING - UPPER BODY: Activity did not occur on this shift ARTICLES SCORE Total number of steps: 0 DRESSING - UPPER BODY - SCORE: 0-UNK DRESSING - LOWER BODY: Activity did not occur on this shift ARTICLES SCORE Total number of steps: 0 DRESSING - LOWER BODY - SCORE: 0-UNK TOILETING: TOILETING - STEP 1: Does the patient require the assistance of a person or device, or need extra time with toileting? Yes . TOILETING - STEP 2: Does the patient require the assistance of a helper? No. TOILETING - SCORE: 6-LISA BLADDER MANAGEMENT: BLADDER MANAGEMENT - STEP 1: Does the patient control the bladder completely and intentionally without equipment or devices or med ications, and is always continent? Yes. BLADDER MANAGEMENT - SCORE: 7-IND BOWEL MANAGEMENT: Activity did not occur on this shift BOWEL MANAGEMENT - SCORE: 7-IND TRANSFERS: BED, CHAIR, WHEELCHAIR: TRANSFERS: BED, CHAIR, WHEELCHAIR - STEP 1: Does the patient require assistance of a person or device, or need extra time with bed, chair, or whe elchair transfers? Yes. TRANSFERS: BED, CHAIR, WHEELCHAIR - STEP 2: Does the patient require the assistance of a helper? No. Patient only requires an assistive device fo r bed, chair, wheelchair transfers such as a sliding board, grab bar, or brace, OR s/he takes more th an reasonable time, OR there is a safety concern when s/he performs the transfers TRANSFERS: BED, CHAIR, WHEELCHAIR - SCORE: 6-LISA TRANSFERS: TOILET: TRANSFERS: TOILET - STEP 1: Does the patient require the assistance of a person or device, or need extra time with toilet transfe rs? Yes. TRANSFERS: TOILET - STEP 2: Does the patient require the assistance of a helper? No. Patient only requires an assistive device [place] as a grab bar or special seat, OR s/he takes more than reasonable time to perform toilet transfers , OR there is a safety concern when s/he performs toilet transfers. TRANSFERS: TOILET - SCORE: 6-LISA TRANSFERS: SHOWER: Activity did not occur on this shift TRANSFERS: SHOWER - SCORE: 0-UNK TRANSFERS: TUB: Activity did not occur on this shift TRANSFERS: TUB - SCORE: 0-UNK LOCOMOTION: WALK: Activity did not occur on this shift LOCOMOTION: WALK - SCORE: 0-UNK LOCOMOTION: WHEELCHAIR: Activity did not occur on this shift LOCOMOTION: WHEELCHAIR - SCORE: 0-UNK COMPREHENSION: COMPREHENSION: TYPE: Both COMPREHENSION - STEP 1: Does the patient require help from a person or device, or need extra time to understand complex and a bstract ideas (such as current events, finances, discharge planning, medical issues, relationships, e tc)? No. COMPREHENSION - STEP 2: Does the patient need extra time, require an assistive device (such as glasses for visual comprehensi on or a hearing aid for auditory comprehension) or does s/he have mild difficulty understanding compl ex and abstract information? Yes. COMPREHENSION - SCORE: 6-LISA EXPRESSION EXPRESSION: TYPE: Both EXPRESSION - STEP 1: Does the patient require help from a person or device, or need extra time expressing complex and abst ract ideas (such as current events, finances, discharge planning, medical issues, relationships, etc) ? No. EXPRESSION - STEP 2: Does the patient need extra time, require an assistive device (such as augmentive communication syste m or a communication board), OR does s/he have mild difficulty expressing complex and abstract ideas (including mild dysarthria or mild word-find problems)? Yes. EXPRESSION - SCORE: 6-LISA SOCIAL INTERACTION: SOCIAL INTERACTION - STEP 1: Does the patient require a helper to interact with others in social and therapeutic situations? No. SOCIAL INTERACTION - STEP 2: Does the patient need extra time in social situations, OR does s/he interact with staff, other patien ts, and family members ONLY in structured environments, OR does s/he require medication for social in teraction? No. SOCIAL INTERACTION - SCORE: 7-IND PROBLEM SOLVING: PROBLEM SOLVING - STEP 1: Does the patient need help from a person or device, or need extra time to solve complex problems such as managing a checking account or confronting interpersonal problems? No. PROBLEM SOLVING - STEP 2: Does the patient require extra time to make decisions or solve problems, OR does s/he have slight dif ficulty reading, initiating, or self-correcting in unfamiliar situations? No. PROBLEM SOLVING - SCORE: 7-IND MEMORY: MEMORY - STEP 1: Does the patient need help from a person or device, or need extra time to remember frequently encount ered people, daily routines, and executing requests? No. MEMORY - STEP 2: Does the patient have slight difficulty recognizing frequently encountered people, daily routines, or executing requests without the need for repetition or using self-initiated or environmental cues to remember? Yes. MEMORY - SCORE: 6-LISA SIGNATURE PANEL: The following modified sections: Eating - Score, Grooming - Score, Bathing - Score, Dressing - Upper Body - Score, Dressing - Lower Body - Score, Toileting - Score, Bladder Management - Score, Bowel Man agement - Score, Transfers: Bed, Chair, Wheelchair - Score, Transfers: Toilet - Score, Transfers: Neli wer - Score, Transfers: Tub - Score, Locomotion: Walk - Score, Locomotion: Wheelchair - Score, Compre hension - Score, Expression - Score, Social Interaction - Score, Problem Solving - Score, Memory - Sc ore were [electronically] signed by Didier Moore on MonOct 01 2018 15:13:33 GMT-0600 (Central Standard Time)
[2018-10-01] MEDS: RIVAROXABAN 20 MG TABLET PO SCH (16:23)
--- NOTE | 2018-10-01 21:23 | R.PN ---
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 SUBJECTIVE: Pt denied any depression. Pt denied any Shortness of Breath. Ambulated 750' with standby assistance using a left hemiwalker. Up and down 15 steps with contact gua rd assistance using left handrail. VITAL SIGNS Temperature: 97.6 F SBP/DBP: 139 Pulse: 62 Resp: 14 Ambulated 500' with modified independence using a right hemiwalker. Self-propelled wheelchair 250' with modified independence. MEDICATION ALLERGIES: No Known Drug Allergies (NKDA) ENVIRONMENTAL ALLERGIES: - Substance Allergies None Known - Other Allergies None Known NURSING: - Shower allowing shower - Skin care per protocol PRECAUTIONS: - Posterior Hip Precaution No adduction across midline No external rotation No hip flexion >90 degrees No internal rotation No wheel chair propulsion - Weight Bearing Precaution WBAT right LE NWB right wrist ACTIVITIES OOB only with supervision THERAPIES: - Occupational Therapy Evaluate and Treat. - Physical Therapy Evaluate and Treat. PHYSICAL EXAM - Gen Alert and awake Lying in bed No apparent distress Oriented to: person, time, and place - Skin No breakdown No abnormalities - Eyes No abnormalities - ENMT No abnormalities - Neck No abnormalities - CVS RRR - Chest No abnormalities - Resp Clear to auscultation - Abd + bowel sounds - GI Soft Deferred - No abnormalities - Ext No significant edema. - MSK Right upper extremity in hard cast. - Neuro No focal deficits - Psych No abnormalities ASSESSMENT: Pt. is a 78 yo Right-handed white male.On 09/17/2018 he was admitted to [facility] and underwent emergency surgery for right intertrochancteric proximal hip fx (Unilateral Hip Fra cture) by DR. Kian Villa.Pre-morbidly, Pt. was independent/mod-I in Self-Care, Sphincter Control, Transfers Control, Communication, Social Cognition, and Locomotion; and he had good Sphincter Control .Currently, he has deficits of Self-Care, Transfers Control, Endurance, Balance, Safety Awareness, Lo comotion, and Social Cognition.Pt. is now referred to [facility] for acute in- patient rehabilitation in order to maximize patient's functional independence in activities of daily living, strength, ROM, and mobility.- Rehab Goal Patient has realistic goal of being discharged at assistance level 6-Jane to reside at Home with Fam jose/Relatives. MDM/PLAN: - Physical Therapy Decreased range of motion - to improve, our physical therapists will perform initial evaluation of p t's status upon admission and devise an individualized program for increasing patient's Range of Carmelo on. Gait dysfunction - to improve, our physical therapists will perform initial evaluation of pt's statu s upon admission and devise an individualized program for Gait Training, and Wheel Chair mobility Inability to transfer - to improve, our physical therapists will perform initial evaluation of pt's status upon admission and devise an individualized program for Bed mobility Need for home safety evaluation - to improve, our physical therapists will perform initial evaluatio n of pt's status upon admission and devise an individualized program for Home Evaluation Need in caregiver upon discharge - to improve, our physical therapists will perform initial evaluati on of pt's status upon admission and devise an individualized program for Caregiver Training New precaution - to improve, our physical therapists will perform initial evaluation of pt's status upon admission and devise an individualized program for Patient precaution education Edema - to improve, our physical therapists will perform initial evaluation of pt's status upon admi ssion and devise an individualized program for Elevation Training, and Lymphedema Therapy Poor balance - to improve, our physical therapists will perform initial evaluation of pt's status up on admission and devise an individualized program for Balance Training Poor endurance - to improve, our physical therapists will perform initial evaluation of pt's status upon admission and devise an individualized program for Endurance Training Weakness - to improve, our physical therapists will perform initial evaluation of pt's status upon a dmission and devise an individualized program for Aquatic Therapy, Neuromuscular Reeducation, and Str engthening Achieving independence - to improve, our physical therapists will perform initial evaluation of pt's status upon admission and devise an individualized program for Community Reintegration Activities - Occupational Therapy ADL deficits - to improve, our occupation therapists will perform initial evaluation of pt's status upon admission and devise an individualized program for Bathing, Bed mobility, Community Reintegratio n, Cooking, Dressing, Eating, Fine Motor Skills, Grooming, Homemaking, Kitchen Mobility, Laundry, Pat ient Education, Safety Awareness, Splinting - Positioning, Transfers(Toilet, Tub, Shower), and Wheel Chair Management Cognitive deficits - to improve, our occupation therapists will perform initial evaluation of pt's s tatus upon admission and devise an individualized program for Cognition - orientation Need for managed care director - to improve, our occupation therapists will perform initial evaluation of pt's status upon admission and devise an individualized program for Caregiver Training Weakness - to improve, our occupation therapists will perform initial evaluation of pt's status upon admission and devise an individualized program for Aquatic Therapy, Balance, Endurance, UE ROM, and UE strengthening - Anterior Hip Precaution No abduction No active extension No adduction across midline No external rotation No hip flexion >90 degrees No internal rotation - Diet - Liquid Texture Continue Regular - Tube Feed Continue N/A - Diet Type Continue Regular - Posterior Hip Precaution No adduction across midline No external rotation No hip flexion >90 degrees No internal rotation No wheel chair propulsion - Weight Bearing Precaution NWB right wrist WBAT right LE - Skin care per protocol - Diet - Solid Texture Continue Regular - Shower allowing shower FUNCTIONAL STATUS: UPDATED AT WEEKLY TEAM CONFERENCE - Bladder Same accident frequency: 7-Ind - No accidents in the past 7 days - Bowel Same accident frequency: 7-Ind - No accidents in the past 7 days - Walking Same score based on distance walked: 0(N/A) FUNCTIONAL STATUS: - Self-Care A. Eating Dion B. Grooming Dion C. Bathing modA D. Dressing - Upper maxA E. Dressing - Lower maxA F. Toileting modA - Sphincter Control G: Bladder control Ind H: Bowel control Ind - Transfers Control I. Bed/Chair/Wheelchair modA J. Toilet modA K. Tub/Shower modA - Locomotion L. Walk/Wheelchair (B) maxA M. Stairs ADNO - Communication N. Comprehension (B) Jane O. Expression (B) Jane - Social Cognition P. Social Interaction Jane Q. Problem Solving Jane R. Memory sup - Endurance Fair - Balance Fair - Safety Awareness Fair CURRENT FUNC. DEFICITS: Self-Care, Transfers Control, Endurance, Balance, Safety Awareness, Locomotion, and Social Cognition SIGNATURE PANEL: (SEAFOOD FARMER)
--- NOTE | 2018-10-02 01:28 | FAST ---
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 Yomi Campbell M.D. ADMISSION DIAGNOSIS: - Orthopaedic Disorders 08 - Unilateral Hip Fracture (08.11) right intertrochancteric proximal hip fx . right impacted fx involving the distal radial metaphysis a nd mild comminuted distal ulnar fx. EATING: Activity did not occur on this shift EATING - SCORE: 0-UNK GROOMING: Activity did not occur on this shift GROOMING - SCORE: 0-UNK BATHING: Activity did not occur on this shift BATHING - SCORE: 0-UNK DRESSING - UPPER BODY: Activity did not occur on this shift ARTICLES SCORE Total number of steps: 0 DRESSING - UPPER BODY - SCORE: 0-UNK DRESSING - LOWER BODY: Activity did not occur on this shift ARTICLES SCORE Total number of steps: 0 DRESSING - LOWER BODY - SCORE: 0-UNK TOILETING: TOILETING - STEP 1: Does the patient require the assistance of a person or device, or need extra time with toileting? Yes . TOILETING - STEP 2: Does the patient require the assistance of a helper? Yes. TOILETING - STEP 3: How much assistance does the patient require from the helper? Only supervision TOILETING - SCORE: 5-SUP BLADDER MANAGEMENT: BLADDER MANAGEMENT - STEP 1: Does the patient control the bladder completely and intentionally without equipment or devices or med ications, and is always continent? Yes. BLADDER MANAGEMENT - SCORE: 7-IND BOWEL MANAGEMENT: Activity did not occur on this shift BOWEL MANAGEMENT - SCORE: 7-IND TRANSFERS: BED, CHAIR, WHEELCHAIR: TRANSFERS: BED, CHAIR, WHEELCHAIR - STEP 1: Does the patient require assistance of a person or device, or need extra time with bed, chair, or whe elchair transfers? Yes. TRANSFERS: BED, CHAIR, WHEELCHAIR - STEP 2: Does the patient require the assistance of a helper? Yes. TRANSFERS: BED, CHAIR, WHEELCHAIR - STEP 3: How much assistance does the patient require from the helper? Only supervision TRANSFERS: BED, CHAIR, WHEELCHAIR - SCORE: 5-SUP TRANSFERS: TOILET: TRANSFERS: TOILET - STEP 1: Does the patient require the assistance of a person or device, or need extra time with toilet transfe rs? Yes. TRANSFERS: TOILET - STEP 2: Does the patient require the assistance of a helper? Yes. TRANSFERS: TOILET - STEP 3: How much assistance does the patient require from the helper? Only supervision, cuing, coaxing, OR he lp to set out transfer equipment or to lock brakes and/or lift foot rests TRANSFERS: TOILET - SCORE: 5-SUP TRANSFERS: SHOWER: Activity did not occur on this shift TRANSFERS: SHOWER - SCORE: 0-UNK TRANSFERS: TUB: Activity did not occur on this shift TRANSFERS: TUB - SCORE: 0-UNK LOCOMOTION: WALK: Activity did not occur on this shift LOCOMOTION: WALK - SCORE: 0-UNK LOCOMOTION: WHEELCHAIR: Activity did not occur on this shift LOCOMOTION: WHEELCHAIR - SCORE: 0-UNK COMPREHENSION: COMPREHENSION: TYPE: Both COMPREHENSION - STEP 1: Does the patient require help from a person or device, or need extra time to understand complex and a bstract ideas (such as current events, finances, discharge planning, medical issues, relationships, e tc)? No. COMPREHENSION - STEP 2: Does the patient need extra time, require an assistive device (such as glasses for visual comprehensi on or a hearing aid for auditory comprehension) or does s/he have mild difficulty understanding compl ex and abstract information? Yes. COMPREHENSION - SCORE: 6-LISA EXPRESSION EXPRESSION: TYPE: Both EXPRESSION - STEP 1: Does the patient require help from a person or device, or need extra time expressing complex and abst ract ideas (such as current events, finances, discharge planning, medical issues, relationships, etc) ? No. EXPRESSION - STEP 2: Does the patient need extra time, require an assistive device (such as augmentive communication syste m or a communication board), OR does s/he have mild difficulty expressing complex and abstract ideas (including mild dysarthria or mild word-find problems)? No. EXPRESSION - SCORE: 7-IND SOCIAL INTERACTION: SOCIAL INTERACTION - STEP 1: Does the patient require a helper to interact with others in social and therapeutic situations? No. SOCIAL INTERACTION - STEP 2: Does the patient need extra time in social situations, OR does s/he interact with staff, other patien ts, and family members ONLY in structured environments, OR does s/he require medication for social in teraction? No. SOCIAL INTERACTION - SCORE: 7-IND PROBLEM SOLVING: PROBLEM SOLVING - STEP 1: Does the patient need help from a person or device, or need extra time to solve complex problems such as managing a checking account or confronting interpersonal problems? No. PROBLEM SOLVING - STEP 2: Does the patient require extra time to make decisions or solve problems, OR does s/he have slight dif ficulty reading, initiating, or self-correcting in unfamiliar situations? No. PROBLEM SOLVING - SCORE: 7-IND MEMORY: MEMORY - STEP 1: Does the patient need help from a person or device, or need extra time to remember frequently encount ered people, daily routines, and executing requests? No. MEMORY - STEP 2: Does the patient have slight difficulty recognizing frequently encountered people, daily routines, or executing requests without the need for repetition or using self-initiated or environmental cues to remember? No. MEMORY - SCORE: 7-IND SIGNATURE PANEL: The following modified sections: Eating - Score, Grooming - Score, Bathing - Score, Dressing - Upper Body - Score, Dressing - Lower Body - Score, Toileting - Score, Bladder Management - Score, Bowel Man agement - Score, Transfers: Bed, Chair, Wheelchair - Score, Transfers: Toilet - Score, Transfers: Neli wer - Score, Transfers: Tub - Score, Locomotion: Walk - Score, Locomotion: Wheelchair - Score, Compre hension - Score, Expression - Score, Social Interaction - Score, Problem Solving - Score, Memory - Sc ore were [electronically] signed by Geno Carlos CNA on MonOct 02 2018 01:28:03 T-0600 ([facility])
[2018-10-02] MEDS: HYDROCODONE/APAP 7.5/325 MG TAB PO PRN ×3 (07:37→20:36)
[2018-10-02] MEDS: NEBIVOLOL HCL 20 MG TABLET PO SCH (07:40)
[2018-10-02] MEDS: FERROUS SULFATE 325 MG TAB PO SCH (07:41)
[2018-10-02] MEDS: DOCUSATE NA 100 MG CAP PO SCH (07:41)
[2018-10-02] MEDS: ASCORBIC ACID 500 MG TABLET PO SCH (07:41)
[2018-10-02] MEDS: PROMOD 30 ML DOSE PO SCH ×2 (07:41→20:36)
[2018-10-02] MEDS: FE SULF/FA/VIT B COMP & C TAB PO SCH (07:41)
--- NOTE | 2018-10-02 10:28 | FAST ---
SHIFT START DATE/TIME: 10/02/2018 07:00 (MACHINE WASHER) SHIFT END DATE/TIME: 10/02/2018 19:00 (MACHINE WASHER) NAME GISELLE TRUJILLO DATE OF : 1940 DATE OF ADMISSION: 09/21/2018 20:14 (MACHINE WASHER) PHONE: AGE: 78 SSN# [id number] GENDER: Male ENCOUNTER PHYSICIAN: Dr. Yomi Campbell M.D. ADMISSION DIAGNOSIS: - Orthopaedic Disorders 08 - Unilateral Hip Fracture (08.11) right intertrochancteric proximal hip fx . right impacted fx involving the distal radial metaphysis a nd mild comminuted distal ulnar fx. EATING: EATING - STEP 1: Does the patient require the assistance of a person or device, or need extra time when eating? Yes. EATING - STEP 2: Does the patient require the assistance of a helper? No, patient only requires an assistive device, O R s/he takes more than reasonable time to eat, OR there is a safety concern, OR s/he requires modifie d food consistency EATING - SCORE: 6-LISA GROOMING: Comb/brush hair Oral care GROOMING - STEP 1: Does the patient require the assistance of a person or device, or need extra time when grooming? Yes. GROOMING - STEP 2: Does the patient require the assistance of a helper? No. The patient only requires an assistive devic e, OR takes more than reasonable time to groom, OR there is a concern for safety as the patient groom s GROOMING - SCORE: 6-LISA BATHING: Activity did not occur on this shift BATHING - SCORE: 0-UNK DRESSING - UPPER BODY: Activity did not occur on this shift ARTICLES SCORE Total number of steps: 0 DRESSING - UPPER BODY - SCORE: 0-UNK DRESSING - LOWER BODY: Activity did not occur on this shift ARTICLES SCORE Total number of steps: 0 DRESSING - LOWER BODY - SCORE: 0-UNK TOILETING: TOILETING - STEP 1: Does the patient require the assistance of a person or device, or need extra time with toileting? Yes . TOILETING - STEP 2: Does the patient require the assistance of a helper? No. TOILETING - SCORE: 6-LISA BLADDER MANAGEMENT: BLADDER MANAGEMENT - STEP 1: Does the patient control the bladder completely and intentionally without equipment or devices or med ications, and is always continent? Yes. BLADDER MANAGEMENT - SCORE: 7-IND BOWEL MANAGEMENT: Activity did not occur on this shift BOWEL MANAGEMENT - SCORE: 7-IND TRANSFERS: BED, CHAIR, WHEELCHAIR: TRANSFERS: BED, CHAIR, WHEELCHAIR - STEP 1: Does the patient require assistance of a person or device, or need extra time with bed, chair, or whe elchair transfers? No. TRANSFERS: BED, CHAIR, WHEELCHAIR - SCORE: 7-IND TRANSFERS: TOILET: TRANSFERS: TOILET - STEP 1: Does the patient require the assistance of a person or device, or need extra time with toilet transfe rs? Yes. TRANSFERS: TOILET - STEP 2: Does the patient require the assistance of a helper? No. Patient only requires an assistive device [place] as a grab bar or special seat, OR s/he takes more than reasonable time to perform toilet transfers , OR there is a safety concern when s/he performs toilet transfers. TRANSFERS: TOILET - SCORE: 6-LISA TRANSFERS: SHOWER: Activity did not occur on this shift TRANSFERS: SHOWER - SCORE: 0-UNK TRANSFERS: TUB: Activity did not occur on this shift TRANSFERS: TUB - SCORE: 0-UNK LOCOMOTION: WALK: Activity did not occur on this shift LOCOMOTION: WALK - SCORE: 0-UNK LOCOMOTION: WHEELCHAIR: Activity did not occur on this shift LOCOMOTION: WHEELCHAIR - SCORE: 0-UNK COMPREHENSION: COMPREHENSION: TYPE: Both COMPREHENSION - STEP 1: Does the patient require help from a person or device, or need extra time to understand complex and a bstract ideas (such as current events, finances, discharge planning, medical issues, relationships, e tc)? No. COMPREHENSION - STEP 2: Does the patient need extra time, require an assistive device (such as glasses for visual comprehensi on or a hearing aid for auditory comprehension) or does s/he have mild difficulty understanding compl ex and abstract information? No. COMPREHENSION - SCORE: 7-IND EXPRESSION EXPRESSION: TYPE: Both EXPRESSION - STEP 1: Does the patient require help from a person or device, or need extra time expressing complex and abst ract ideas (such as current events, finances, discharge planning, medical issues, relationships, etc) ? No. EXPRESSION - STEP 2: Does the patient need extra time, require an assistive device (such as augmentive communication syste m or a communication board), OR does s/he have mild difficulty expressing complex and abstract ideas (including mild dysarthria or mild word-find problems)? No. EXPRESSION - SCORE: 7-IND SOCIAL INTERACTION: SOCIAL INTERACTION - STEP 1: Does the patient require a helper to interact with others in social and therapeutic situations? No. SOCIAL INTERACTION - STEP 2: Does the patient need extra time in social situations, OR does s/he interact with staff, other patien ts, and family members ONLY in structured environments, OR does s/he require medication for social in teraction? No. SOCIAL INTERACTION - SCORE: 7-IND PROBLEM SOLVING: PROBLEM SOLVING - STEP 1: Does the patient need help from a person or device, or need extra time to solve complex problems such as managing a checking account or confronting interpersonal problems? No. PROBLEM SOLVING - STEP 2: Does the patient require extra time to make decisions or solve problems, OR does s/he have slight dif ficulty reading, initiating, or self-correcting in unfamiliar situations? No. PROBLEM SOLVING - SCORE: 7-IND MEMORY: MEMORY - STEP 1: Does the patient need help from a person or device, or need extra time to remember frequently encount ered people, daily routines, and executing requests? No. MEMORY - STEP 2: Does the patient have slight difficulty recognizing frequently encountered people, daily routines, or executing requests without the need for repetition or using self-initiated or environmental cues to remember? No. MEMORY - SCORE: 7-IND SIGNATURE PANEL: The following modified sections: Eating - Score, Grooming - Score, Bathing - Score, Dressing - Upper Body - Score, Dressing - Lower Body - Score, Toileting - Score, Bladder Management - Score, Bowel Man agement - Score, Transfers: Bed, Chair, Wheelchair - Score, Transfers: Toilet - Score, Transfers: Neli wer - Score, Transfers: Tub - Score, Locomotion: Walk - Score, Locomotion: Wheelchair - Score, Compre hension - Score, Expression - Score, Social Interaction - Score, Problem Solving - Score, Memory - Sc ore were [electronically] signed by Didier Moore on MonOct 02 2018 10:27:54 GMT-0600 (Central Standard Time)
[2018-10-02] MEDS: TRAMADOL HCL 50 MG TAB PO PRN (12:24)
--- NOTE | 2018-10-02 15:51 | FAST ---
ENCOUNTER DATE AND TIME: 10/02/2018 08:00 (SUPERVISOR BLEACH PLANT) NAME GISELLE TRUJILLO DATE OF : 1940 DATE OF ADMISSION: 09/21/2018 20:14 (SUPERVISOR BLEACH PLANT) PHONE: AGE: 78 SSN# [id number] GENDER: Male ENCOUNTER PHYSICIAN: Dr. Yomi Campbell M.D. ADMISSION DIAGNOSIS: - Orthopaedic Disorders 08 - Unilateral Hip Fracture (08.11) right intertrochancteric proximal hip fx . right impacted fx involving the distal radial metaphysis a nd mild comminuted distal ulnar fx. EATING: Activity did not occur on this shift EATING - SCORE: 0-UNK GROOMING: Activity did not occur on this shift GROOMING - SCORE: 0-UNK BATHING: Activity did not occur on this shift BATHING - SCORE: 0-UNK DRESSING - UPPER BODY: Activity did not occur on this shift Patient is not dressing in public clothing ARTICLES SCORE Total number of steps: 0 DRESSING - UPPER BODY - SCORE: 0-UNK DRESSING - LOWER BODY: Activity did not occur on this shift Patient is not dressing in public clothing ARTICLES SCORE Total number of steps: 0 DRESSING - LOWER BODY - SCORE: 0-UNK TOILETING: Activity did not occur on this shift TOILETING - SCORE: 0-UNK BLADDER MANAGEMENT: Activity did not occur on this shift BLADDER MANAGEMENT - SCORE: 7-IND BOWEL MANAGEMENT: Activity did not occur on this shift BOWEL MANAGEMENT - SCORE: 7-IND TRANSFERS: BED, CHAIR, WHEELCHAIR: TRANSFERS: BED, CHAIR, WHEELCHAIR - STEP 1: Does the patient require assistance of a person or device, or need extra time with bed, chair, or whe elchair transfers? Yes. TRANSFERS: BED, CHAIR, WHEELCHAIR - STEP 2: Does the patient require the assistance of a helper? No. Patient only requires an assistive device fo r bed, chair, wheelchair transfers such as a sliding board, grab bar, or brace, OR s/he takes more th an reasonable time, OR there is a safety concern when s/he performs the transfers TRANSFERS: BED, CHAIR, WHEELCHAIR - SCORE: 6-LISA TRANSFERS: TOILET: Activity did not occur on this shift TRANSFERS: TOILET - SCORE: 0-UNK TRANSFERS: SHOWER: Activity did not occur on this shift TRANSFERS: SHOWER - SCORE: 0-UNK TRANSFERS: TUB: Activity did not occur on this shift TRANSFERS: TUB - SCORE: 0-UNK LOCOMOTION: WALK: LOCOMOTION: WALK - STEP 1: Does the patient need help from a person or device, or need extra time to walk 150 feet? No. LOCOMOTION: WALK - STEP 2: Does the patient need an assistive device (such as an orthosis, prosthesis, crutches, or walker) to g o 150 feet, OR does s/he take more than reasonable time, OR is there a concern for safety? Yes, the p atient needs an assistive device LOCOMOTION: WALK - SCORE: 6-LISA LOCOMOTION: WHEELCHAIR: Activity did not occur on this shift LOCOMOTION: WHEELCHAIR - SCORE: 0-UNK LOCOMOTION: STAIRS: LOCOMOTION: STAIRS - STEP 1: Does the patient need help to go up and down 12 to 14 stairs? No. LOCOMOTION: STAIRS - STEP 2: Does the patient require an assistive device - such as handrails or cane - to go up and down one flig ht of stairs, OR does s/he take more than reasonable time, OR is there a concern for safety? Yes, the patient requires an assistive device LOCOMOTION: STAIRS - SCORE: 6-LISA COMPREHENSION: COMPREHENSION - SCORE: 0-UNK EXPRESSION EXPRESSION - SCORE: 0-UNK SOCIAL INTERACTION: SOCIAL INTERACTION - SCORE: 0-UNK PROBLEM SOLVING: PROBLEM SOLVING - SCORE: 0-UNK MEMORY: MEMORY - SCORE: 0-UNK SIGNATURE PANEL: The following modified sections: Transfers: Bed, Chair, Wheelchair - Score, Transfers: Toilet - Score , Locomotion: Walk - Score, Locomotion: Wheelchair - Score, Locomotion: Stairs - Score were [brian bolivar] signed by Roby Miller PTA on MonOct 02 2018 15:50:12 GMT-0600 (Central Standard Time)
[2018-10-02] MEDS: RIVAROXABAN 20 MG TABLET PO SCH (16:12)
--- NOTE | 2018-10-02 17:56 | R.PN ---
ENCOUNTER DATE AND TIME: 10/02/2018 17:53 (FITNESS INSTRUCTOR) NAME GISELLE TRUJILLO DATE OF : 1940 DATE OF ADMISSION: 09/21/2018 20:14 (FITNESS INSTRUCTOR) right intertrochancteric proximal hip fx right impacted fx involving the distal radial metaphysis and mild comminuted distal ulnar fxCHIEF COMPLAINT: Right hip fracture. SUBJECTIVE: Pt denied any depression. Pt denied any Shortness of Breath. Ambulated 1250' with modified independence using a left hemiwalker. Up and down 15 steps with modifie d independence using left handrail. VITAL SIGNS Temperature: 97.6 F SBP/DBP: 164/69 Pulse: 65 Resp: 14 MEDICATION ALLERGIES: No Known Drug Allergies (NKDA) ENVIRONMENTAL ALLERGIES: - Substance Allergies None Known - Other Allergies None Known NURSING: - Shower allowing shower - Skin care per protocol PRECAUTIONS: - Posterior Hip Precaution No adduction across midline No external rotation No hip flexion >90 degrees No internal rotation No wheel chair propulsion - Weight Bearing Precaution WBAT right LE NWB right wrist ACTIVITIES OOB only with supervision THERAPIES: - Occupational Therapy Evaluate and Treat. - Physical Therapy Evaluate and Treat. PHYSICAL EXAM - Gen Alert and awake Lying in bed No apparent distress Oriented to: person, time, and place - Skin No breakdown No abnormalities - Eyes No abnormalities - ENMT No abnormalities - Neck No abnormalities - CVS RRR - Chest No abnormalities - Resp Clear to auscultation - Abd + bowel sounds - GI Soft Deferred - No abnormalities - Ext No significant edema. - MSK Right upper extremity in hard cast. - Neuro No focal deficits - Psych No abnormalities ASSESSMENT: Pt. is a 78 yo Right-handed white male.On 09/17/2018 he was admitted to [facility] and underwent emergency surgery for right intertrochancteric proximal hip fx (Unilateral Hip Fra cture) by DR. Kian Villa.Pre-morbidly, Pt. was independent/mod-I in Self-Care, Sphincter Control, Transfers Control, Communication, Social Cognition, and Locomotion; and he had good Sphincter Control .Currently, he has deficits of Self-Care, Transfers Control, Endurance, Balance, Safety Awareness, Lo comotion, and Social Cognition.Pt. is now [facility] to [facility] for acute in- patient rehabilitation in order to maximize patient's functional independence in activities of daily living, strength, ROM, and mobility.- Rehab Goal Patient has realistic goal of being discharged at assistance level 6-Jane to reside at Home with Fam jose/Relatives. MDM/PLAN: - Physical Therapy Decreased range of motion - to improve, our physical therapists will perform initial evaluation of p t's status upon admission and devise an individualized program for increasing patient's Range of Carmelo on. Gait dysfunction - to improve, our physical therapists will perform initial evaluation of pt's statu s upon admission and devise an individualized program for Gait Training, and Wheel Chair mobility Inability to transfer - to improve, our physical therapists will perform initial evaluation of pt's status upon admission and devise an individualized program for Bed mobility Need for home safety evaluation - to improve, our physical therapists will perform initial evaluatio n of pt's status upon admission and devise an individualized program for Home Evaluation Need in caregiver upon discharge - to improve, our physical therapists will perform initial evaluati on of pt's status upon admission and devise an individualized program for Caregiver Training New precaution - to improve, our physical therapists will perform initial evaluation of pt's status upon admission and devise an individualized program for Patient precaution education Edema - to improve, our physical therapists will perform initial evaluation of pt's status upon admi ssion and devise an individualized program for Elevation Training, and Lymphedema Therapy Poor balance - to improve, our physical therapists will perform initial evaluation of pt's status up on admission and devise an individualized program for Balance Training Poor endurance - to improve, our physical therapists will perform initial evaluation of pt's status upon admission and devise an individualized program for Endurance Training Weakness - to improve, our physical therapists will perform initial evaluation of pt's status upon a dmission and devise an individualized program for Aquatic Therapy, Neuromuscular Reeducation, and Str engthening Achieving independence - to improve, our physical therapists will perform initial evaluation of pt's status upon admission and devise an individualized program for Community Reintegration Activities - Occupational Therapy ADL deficits - to improve, our occupation therapists will perform initial evaluation of pt's status upon admission and devise an individualized program for Bathing, Bed mobility, Community Reintegratio n, Cooking, Dressing, Eating, Fine Motor Skills, Grooming, Homemaking, Kitchen Mobility, Laundry, Pat ient Education, Safety Awareness, Splinting - Positioning, Transfers(Toilet, Tub, Shower), and Wheel Chair Management Cognitive deficits - to improve, our occupation therapists will perform initial evaluation of pt's s tatus upon admission and devise an individualized program for Cognition - orientation Need for resident care provider - to improve, our occupation therapists will perform initial evaluation of pt's status upon admission and devise an individualized program for Caregiver Training Weakness - to improve, our occupation therapists will perform initial evaluation of pt's status upon admission and devise an individualized program for Aquatic Therapy, Balance, Endurance, UE ROM, and UE strengthening - Anterior Hip Precaution No abduction No active extension No adduction across midline No external rotation No hip flexion >90 degrees No internal rotation - Diet - Liquid Texture Continue Regular - Tube Feed Continue N/A - Diet Type Continue Regular - Posterior Hip Precaution No adduction across midline No external rotation No hip flexion >90 degrees No internal rotation No wheel chair propulsion - Weight Bearing Precaution NWB right wrist WBAT right LE - Skin care per protocol - Diet - Solid Texture Continue Regular - Shower allowing shower FUNCTIONAL STATUS: UPDATED AT WEEKLY TEAM CONFERENCE - Bladder Same accident frequency: 7-Ind - No accidents in the past 7 days - Bowel Same accident frequency: 7-Ind - No accidents in the past 7 days - Walking Same score based on distance walked: 0(N/A) FUNCTIONAL STATUS: - Self-Care A. Eating Dion B. Grooming Dion C. Bathing modA D. Dressing - Upper maxA E. Dressing - Lower maxA F. Toileting modA - Sphincter Control G: Bladder control Ind H: Bowel control Ind - Transfers Control I. Bed/Chair/Wheelchair modA J. Toilet modA K. Tub/Shower modA - Locomotion L. Walk/Wheelchair (B) maxA M. Stairs ADNO - Communication N. Comprehension (B) Jane O. Expression (B) Jane - Social Cognition P. Social Interaction Jane Q. Problem Solving Jane R. Memory sup - Endurance Fair - Balance Fair - Safety Awareness Fair CURRENT FUNC. DEFICITS: Self-Care, Transfers Control, Endurance, Balance, Safety Awareness, Locomotion, and Social Cognition SIGNATURE PANEL: ([facility])
--- NOTE | 2018-10-03 01:29 | FAST ---
SHIFT START DATE/TIME: 10/02/2018 19:00 (FACILITY SERVICE MANAGER) SHIFT END DATE/TIME: 10/03/2018 07:00 (FACILITY SERVICE MANAGER) NAME GISELLE TRUJILLO DATE OF : 1940 DATE OF ADMISSION: 09/21/2018 20:14 (FACILITY SERVICE MANAGER) PHONE: AGE: 78 SSN# [id number] GENDER: Male ENCOUNTER PHYSICIAN: Dr. Yomi Campbell M.D. ADMISSION DIAGNOSIS: - Orthopaedic Disorders 08 - Unilateral Hip Fracture (08.11) right intertrochancteric proximal hip fx . right impacted fx involving the distal radial metaphysis a nd mild comminuted distal ulnar fx. EATING: Activity did not occur on this shift EATING - SCORE: 0-UNK GROOMING: Activity did not occur on this shift GROOMING - SCORE: 0-UNK BATHING: Activity did not occur on this shift BATHING - SCORE: 0-UNK DRESSING - UPPER BODY: Activity did not occur on this shift ARTICLES SCORE Total number of steps: 0 DRESSING - UPPER BODY - SCORE: 0-UNK DRESSING - LOWER BODY: Activity did not occur on this shift ARTICLES SCORE Total number of steps: 0 DRESSING - LOWER BODY - SCORE: 0-UNK TOILETING: TOILETING - STEP 1: Does the patient require the assistance of a person or device, or need extra time with toileting? Yes . TOILETING - STEP 2: Does the patient require the assistance of a helper? Yes. TOILETING - STEP 3: How much assistance does the patient require from the helper? Only supervision TOILETING - SCORE: 5-SUP BLADDER MANAGEMENT: BLADDER MANAGEMENT - STEP 1: Does the patient control the bladder completely and intentionally without equipment or devices or med ications, and is always continent? Yes. BLADDER MANAGEMENT - SCORE: 7-IND BOWEL MANAGEMENT: Activity did not occur on this shift BOWEL MANAGEMENT - SCORE: 7-IND TRANSFERS: BED, CHAIR, WHEELCHAIR: TRANSFERS: BED, CHAIR, WHEELCHAIR - STEP 1: Does the patient require assistance of a person or device, or need extra time with bed, chair, or whe elchair transfers? Yes. TRANSFERS: BED, CHAIR, WHEELCHAIR - STEP 2: Does the patient require the assistance of a helper? Yes. TRANSFERS: BED, CHAIR, WHEELCHAIR - STEP 3: How much assistance does the patient require from the helper? Only supervision TRANSFERS: BED, CHAIR, WHEELCHAIR - SCORE: 5-SUP TRANSFERS: TOILET: TRANSFERS: TOILET - STEP 1: Does the patient require the assistance of a person or device, or need extra time with toilet transfe rs? Yes. TRANSFERS: TOILET - STEP 2: Does the patient require the assistance of a helper? Yes. TRANSFERS: TOILET - STEP 3: How much assistance does the patient require from the helper? Only supervision, cuing, coaxing, OR he lp to set out transfer equipment or to lock brakes and/or lift foot rests TRANSFERS: TOILET - SCORE: 5-SUP TRANSFERS: SHOWER: Activity did not occur on this shift TRANSFERS: SHOWER - SCORE: 0-UNK TRANSFERS: TUB: Activity did not occur on this shift TRANSFERS: TUB - SCORE: 0-UNK LOCOMOTION: WALK: Activity did not occur on this shift LOCOMOTION: WALK - SCORE: 0-UNK LOCOMOTION: WHEELCHAIR: Activity did not occur on this shift LOCOMOTION: WHEELCHAIR - SCORE: 0-UNK COMPREHENSION: COMPREHENSION: TYPE: Both COMPREHENSION - STEP 1: Does the patient require help from a person or device, or need extra time to understand complex and a bstract ideas (such as current events, finances, discharge planning, medical issues, relationships, e tc)? No. COMPREHENSION - STEP 2: Does the patient need extra time, require an assistive device (such as glasses for visual comprehensi on or a hearing aid for auditory comprehension) or does s/he have mild difficulty understanding compl ex and abstract information? Yes. COMPREHENSION - SCORE: 6-LISA EXPRESSION EXPRESSION: TYPE: Both EXPRESSION - STEP 1: Does the patient require help from a person or device, or need extra time expressing complex and abst ract ideas (such as current events, finances, discharge planning, medical issues, relationships, etc) ? No. EXPRESSION - STEP 2: Does the patient need extra time, require an assistive device (such as augmentive communication syste m or a communication board), OR does s/he have mild difficulty expressing complex and abstract ideas (including mild dysarthria or mild word-find problems)? No. EXPRESSION - SCORE: 7-IND SOCIAL INTERACTION: SOCIAL INTERACTION - STEP 1: Does the patient require a helper to interact with others in social and therapeutic situations? No. SOCIAL INTERACTION - STEP 2: Does the patient need extra time in social situations, OR does s/he interact with staff, other patien ts, and family members ONLY in structured environments, OR does s/he require medication for social in teraction? No. SOCIAL INTERACTION - SCORE: 7-IND PROBLEM SOLVING: PROBLEM SOLVING - STEP 1: Does the patient need help from a person or device, or need extra time to solve complex problems such as managing a checking account or confronting interpersonal problems? No. PROBLEM SOLVING - STEP 2: Does the patient require extra time to make decisions or solve problems, OR does s/he have slight dif ficulty reading, initiating, or self-correcting in unfamiliar situations? No. PROBLEM SOLVING - SCORE: 7-IND MEMORY: MEMORY - STEP 1: Does the patient need help from a person or device, or need extra time to remember frequently encount ered people, daily routines, and executing requests? No. MEMORY - STEP 2: Does the patient have slight difficulty recognizing frequently encountered people, daily routines, or executing requests without the need for repetition or using self-initiated or environmental cues to remember? No. MEMORY - SCORE: 7-IND SIGNATURE PANEL: The following modified sections: Eating - Score, Grooming - Score, Bathing - Score, Dressing - Upper Body - Score, Dressing - Lower Body - Score, Toileting - Score, Bladder Management - Score, Bowel Man agement - Score, Transfers: Bed, Chair, Wheelchair - Score, Transfers: Toilet - Score, Transfers: Neli wer - Score, Locomotion: Walk - Score, Locomotion: Wheelchair - Score, Comprehension - Score, Express ion - Score, Social Interaction - Score, Problem Solving - Score, Memory - Score, Transfers: Tub - Sc ore were [electronically] signed by Geno Carlos CNA on MonOct 03 2018 01:28:35 T-0600 ([facility])
[2018-10-03] MEDS: HYDROCODONE/APAP 7.5/325 MG TAB PO PRN (07:10)
[2018-10-03] MEDS: PROMOD 30 ML DOSE PO SCH (08:00)
[2018-10-03] MEDS: ASCORBIC ACID 500 MG TABLET PO SCH (08:16)
[2018-10-03] MEDS: NEBIVOLOL HCL 20 MG TABLET PO SCH (08:16)
[2018-10-03] MEDS: ROSUVASTATIN 10 MG TAB PO SCH (08:16)
[2018-10-03] MEDS: FERROUS SULFATE 325 MG TAB PO SCH (08:16)
[2018-10-03] MEDS: FE SULF/FA/VIT B COMP & C TAB PO SCH (08:17)
[2018-10-03] MEDS: DOCUSATE NA 100 MG CAP PO SCH (08:17)
--- NOTE | 2018-10-03 09:28 | FAST ---
SHIFT START DATE/TIME: 10/03/2018 07:00 (UI UX WEB DEVELOPER) SHIFT END DATE/TIME: 10/03/2018 19:00 (UI UX WEB DEVELOPER) NAME GISELLE TRUJILLO DATE OF : 1940 DATE OF ADMISSION: 09/21/2018 20:14 (UI UX WEB DEVELOPER) PHONE: AGE: 78 SSN# [id number] GENDER: Male ENCOUNTER PHYSICIAN: Dr. Yomi Campbell M.D. ADMISSION DIAGNOSIS: - Orthopaedic Disorders 08 - Unilateral Hip Fracture (08.11) right intertrochancteric proximal hip fx . right impacted fx involving the distal radial metaphysis a nd mild comminuted distal ulnar fx. EATING: EATING - STEP 1: Does the patient require the assistance of a person or device, or need extra time when eating? Yes. EATING - STEP 2: Does the patient require the assistance of a helper? No, patient only requires an assistive device, O R s/he takes more than reasonable time to eat, OR there is a safety concern, OR s/he requires modifie d food consistency EATING - SCORE: 6-LISA GROOMING: Comb/brush hair Oral care Wash, rinse, and dry face Wash, rinse, and dry hands GROOMING - STEP 1: Does the patient require the assistance of a person or device, or need extra time when grooming? Yes. GROOMING - STEP 2: Does the patient require the assistance of a helper? No. The patient only requires an assistive devic e, OR takes more than reasonable time to groom, OR there is a concern for safety as the patient groom s GROOMING - SCORE: 6-LISA BATHING: Activity did not occur on this shift BATHING - SCORE: 0-UNK DRESSING - UPPER BODY: T-shirt/pullover shirt (four steps) ARTICLES SCORE Total number of steps: 4 DRESSING - UPPER BODY - STEP 1: Does the patient require help from a person or device, or need extra time when dressing above the [address]the[address] st? Yes. DRESSING - UPPER BODY - STEP 2: Does the patient require the assistance of a helper? No. Patient only requires an assistive device, s uch as a button hook, velcro, or insulator technician. OR s/he takes more than reasonable time as s/he dresses the upper body. OR there is a concern for safety when s/he dresses the upper body DRESSING - UPPER BODY - SCORE: 6-LISA DRESSING - LOWER BODY: Elastic waist pants (three steps) Sock - Left foot (one step) Sock - Right foot (one step) Tied or buckled shoe - Left foot (two steps) Tied or buckled shoe - Right foot (two steps) ARTICLES SCORE Total number of steps: 9 DRESSING - LOWER BODY - STEP 1: Does the patient require help from a person or device, or need extra time when dressing below the matthe[address] st? Yes. DRESSING - LOWER BODY - STEP 2: Does the patient require the assistance of a helper? No. Patient requires an assistive device such as a insulator technician. OR s/he takes more than reasonable time as s/he dresses the lower body, OR there is a con cern for safety when s/he dresses the lower body DRESSING - LOWER BODY - SCORE: 6-LISA TOILETING: TOILETING - STEP 1: Does the patient require the assistance of a person or device, or need extra time with toileting? Yes . TOILETING - STEP 2: Does the patient require the assistance of a helper? No. TOILETING - SCORE: 6-LISA BLADDER MANAGEMENT: BLADDER MANAGEMENT - STEP 1: Does the patient control the bladder completely and intentionally without equipment or devices or med ications, and is always continent? Yes. BLADDER MANAGEMENT - SCORE: 7-IND BLADDER MANAGEMENT - FREQUENCY OF ACCIDENTS: BLADDER MANAGEMENT(FA) - STEP 1: How many accidents has the patient had during the current shift? 0 BOWEL MANAGEMENT: Activity did not occur on this shift BOWEL MANAGEMENT - SCORE: 7-IND BOWEL MANAGEMENT - FREQUENCY OF ACCIDENTS: BOWEL MANAGEMENT(FA) - STEP 1: How many accidents has the patient had during the current shift? 0 TRANSFERS: BED, CHAIR, WHEELCHAIR: TRANSFERS: BED, CHAIR, WHEELCHAIR - STEP 1: Does the patient require assistance of a person or device, or need extra time with bed, chair, or whe elchair transfers? No. TRANSFERS: BED, CHAIR, WHEELCHAIR - SCORE: 7-IND TRANSFERS: TOILET: TRANSFERS: TOILET - STEP 1: Does the patient require the assistance of a person or device, or need extra time with toilet transfe rs? No. TRANSFERS: TOILET - SCORE: 7-IND TRANSFERS: SHOWER: Activity did not occur on this shift TRANSFERS: SHOWER - SCORE: 0-UNK TRANSFERS: TUB: Activity did not occur on this shift TRANSFERS: TUB - SCORE: 0-UNK LOCOMOTION: WALK: LOCOMOTION: WALK - STEP 1: Does the patient need help from a person or device, or need extra time to walk 150 feet? Yes. LOCOMOTION: WALK - STEP 2: How much assistance does the patient require to walk a minimum of 150 feet? Only supervision, cuing, or coaxing LOCOMOTION: WALK - SCORE: 5-SUP LOCOMOTION: WHEELCHAIR: Activity did not occur on this shift LOCOMOTION: WHEELCHAIR - SCORE: 0-UNK COMPREHENSION: COMPREHENSION: TYPE: Both COMPREHENSION - STEP 1: Does the patient require help from a person or device, or need extra time to understand complex and a bstract ideas (such as current events, finances, discharge planning, medical issues, relationships, e tc)? No. COMPREHENSION - STEP 2: Does the patient need extra time, require an assistive device (such as glasses for visual comprehensi on or a hearing aid for auditory comprehension) or does s/he have mild difficulty understanding compl ex and abstract information? Yes. COMPREHENSION - SCORE: 6-LISA EXPRESSION EXPRESSION: TYPE: Both EXPRESSION - STEP 1: Does the patient require help from a person or device, or need extra time expressing complex and abst ract ideas (such as current events, finances, discharge planning, medical issues, relationships, etc) ? No. EXPRESSION - STEP 2: Does the patient need extra time, require an assistive device (such as augmentive communication syste m or a communication board), OR does s/he have mild difficulty expressing complex and abstract ideas (including mild dysarthria or mild word-find problems)? Yes. EXPRESSION - SCORE: 6-LISA SOCIAL INTERACTION: SOCIAL INTERACTION - STEP 1: Does the patient require a helper to interact with others in social and therapeutic situations? No. SOCIAL INTERACTION - STEP 2: Does the patient need extra time in social situations, OR does s/he interact with staff, other patien ts, and family members ONLY in structured environments, OR does s/he require medication for social in teraction? No. SOCIAL INTERACTION - SCORE: 7-IND PROBLEM SOLVING: PROBLEM SOLVING - STEP 1: Does the patient need help from a person or device, or need extra time to solve complex problems such as managing a checking account or confronting interpersonal problems? No. PROBLEM SOLVING - STEP 2: Does the patient require extra time to make decisions or solve problems, OR does s/he have slight dif ficulty reading, initiating, or self-correcting in unfamiliar situations? Yes, patient needs extra ti me. PROBLEM SOLVING - SCORE: 6-LISA MEMORY: MEMORY - STEP 1: Does the patient need help from a person or device, or need extra time to remember frequently encount ered people, daily routines, and executing requests? No. MEMORY - STEP 2: Does the patient have slight difficulty recognizing frequently encountered people, daily routines, or executing requests without the need for repetition or using self-initiated or environmental cues to remember? Yes. MEMORY - SCORE: 6-LISA SIGNATURE PANEL: The following modified sections: Eating - Score, Grooming - Score, Bathing - Score, Dressing - Upper Body - Score, Dressing - Lower Body - Score, Toileting - Score, Bladder Management - Score, Bowel Man agement - Score, Transfers: Bed, Chair, Wheelchair - Score, Transfers: Toilet - Score, Transfers: Neli wer - Score, Transfers: Tub - Score, Locomotion: Walk - Score, Locomotion: Wheelchair - Score, Compre hension - Score, Expression - Score, Social Interaction - Score, Problem Solving - Score, Memory - Sc ore were [electronically] signed by Sandra Mckeon C.N.A. on MonOct 03 2018 09:27:02 GMT-0600 (Centra [place] Standard Time)
--- NOTE | 2018-10-03 12:48 | RAD REPORT ---
EXAM DESCRIPTION: [facility]10/03/2018 12:41 pm CLINICAL HISTORY: Right leg pain COMPARISON: None. FINDINGS: Right common femoral, superficial femoral, popliteal and right posterior tibial veins are compressible and demonstrate augmentation. Doppler demonstrates good flow. IMPRESSION: No evidence of deep venous thrombosis involving the right lower extremity.
--- NOTE | 2018-10-03 14:16 | FAST ---
ENCOUNTER DATE AND TIME: 10/03/2018 08:00 (EKG TECH) NAME GISELLE TRUJILLO DATE OF : 1940 DATE OF ADMISSION: 09/21/2018 20:14 (EKG TECH) PHONE: AGE: 78 SSN# [id number] GENDER: Male ENCOUNTER PHYSICIAN: Dr. Yomi Campbell M.D. ADMISSION DIAGNOSIS: - Orthopaedic Disorders 08 - Unilateral Hip Fracture (08.11) right intertrochancteric proximal hip fx . right impacted fx involving the distal radial metaphysis a nd mild comminuted distal ulnar fx. EATING: Activity did not occur on this shift EATING - SCORE: 0-UNK GROOMING: Activity did not occur on this shift GROOMING - SCORE: 0-UNK BATHING: Activity did not occur on this shift BATHING - SCORE: 0-UNK DRESSING - UPPER BODY: Activity did not occur on this shift Patient is not dressing in public clothing ARTICLES SCORE Total number of steps: 0 DRESSING - UPPER BODY - SCORE: 0-UNK DRESSING - LOWER BODY: Activity did not occur on this shift Patient is not dressing in public clothing ARTICLES SCORE Total number of steps: 0 DRESSING - LOWER BODY - SCORE: 0-UNK TOILETING: Activity did not occur on this shift TOILETING - SCORE: 0-UNK BLADDER MANAGEMENT: Activity did not occur on this shift BLADDER MANAGEMENT - SCORE: 7-IND BOWEL MANAGEMENT: Activity did not occur on this shift BOWEL MANAGEMENT - SCORE: 7-IND TRANSFERS: BED, CHAIR, WHEELCHAIR: TRANSFERS: BED, CHAIR, WHEELCHAIR - STEP 1: Does the patient require assistance of a person or device, or need extra time with bed, chair, or whe elchair transfers? Yes. TRANSFERS: BED, CHAIR, WHEELCHAIR - STEP 2: Does the patient require the assistance of a helper? No. Patient only requires an assistive device fo r bed, chair, wheelchair transfers such as a sliding board, grab bar, or brace, OR s/he takes more th an reasonable time, OR there is a safety concern when s/he performs the transfers TRANSFERS: BED, CHAIR, WHEELCHAIR - SCORE: 6-LISA TRANSFERS: TOILET: TRANSFERS: TOILET - STEP 1: Does the patient require the assistance of a person or device, or need extra time with toilet transfe rs? Yes. TRANSFERS: TOILET - STEP 2: Does the patient require the assistance of a helper? No. Patient only requires an assistive device [place] as a grab bar or special seat, OR s/he takes more than reasonable time to perform toilet transfers , OR there is a safety concern when s/he performs toilet transfers. TRANSFERS: TOILET - SCORE: 6-LISA TRANSFERS: SHOWER: Activity did not occur on this shift TRANSFERS: SHOWER - SCORE: 0-UNK TRANSFERS: TUB: Activity did not occur on this shift TRANSFERS: TUB - SCORE: 0-UNK LOCOMOTION: WALK: LOCOMOTION: WALK - STEP 1: Does the patient need help from a person or device, or need extra time to walk 150 feet? No. LOCOMOTION: WALK - STEP 2: Does the patient need an assistive device (such as an orthosis, prosthesis, crutches, or walker) to g o 150 feet, OR does s/he take more than reasonable time, OR is there a concern for safety? Yes, the p atient needs an assistive device LOCOMOTION: WALK - SCORE: 6-LISA LOCOMOTION: WHEELCHAIR: LOCOMOTION: WHEELCHAIR - STEP 1: Does the patient need help to go 150 feet in a wheelchair? No. LOCOMOTION: WHEELCHAIR - SCORE: 6-LISA LOCOMOTION: STAIRS: LOCOMOTION: STAIRS - STEP 1: Does the patient need help to go up and down 12 to 14 stairs? No. LOCOMOTION: STAIRS - STEP 2: Does the patient require an assistive device - such as handrails or cane - to go up and down one flig ht of stairs, OR does s/he take more than reasonable time, OR is there a concern for safety? Yes, the patient requires an assistive device LOCOMOTION: STAIRS - SCORE: 6-LISA COMPREHENSION: COMPREHENSION - SCORE: 0-UNK EXPRESSION EXPRESSION - SCORE: 0-UNK SOCIAL INTERACTION: SOCIAL INTERACTION - SCORE: 0-UNK PROBLEM SOLVING: PROBLEM SOLVING - SCORE: 0-UNK MEMORY: MEMORY - SCORE: 0-UNK SIGNATURE PANEL: The following modified sections: Transfers: Bed, Chair, Wheelchair - Score, Transfers: Toilet - Score , Locomotion: Walk - Score, Locomotion: Wheelchair - Score, Locomotion: Stairs - Score were [brian bolivar] signed by Smita Sanchez PTA on MonOct 03 2018 14:15:13 GMT-0600 (Central Standard Time)
== END 2018-10-03 13:30 | disposition home or self-care (01) | DRG 561 ==
LOC: 5TH 20:14
PROVIDERS: ADMIT Psychiatry & Neurology Neurology with Special Qualifications in Child Neurology; ATTEND Psychiatry & Neurology Neurology with Special Qualifications in Child Neurology
DX: S72.141D Displaced intertrochanteric fracture of right femur, subsequent encounter for closed fracture with routine healing (principal); S52.501D Unspecified fracture of the lower end of right radius, subsequent encounter for closed fracture with routine healing; S52.601D Unspecified fracture of lower end of right ulna, subsequent encounter for closed fracture with routine healing; I48.2 Chronic atrial fibrillation; I10 Essential (primary) hypertension; E78.5 Hyperlipidemia, unspecified
CPT/HCPCS: 36415; 80048; 81001; 82040; 83735; 84134; 85025; 87086; 87088; 93971; 97110; 97112; 97116; 97150; 97163; 97530

== ENCOUNTER 2018-11-30 16:57 | Emergency (ER) | payer OTHER ==
--- OUTSIDE RECORDS SUMMARY | 2018-11-30 16:59 | XMS REPORT ---
:1940 Author Organization [employer] Care Team Providers Name Role Phone Carter Solomon Provider Role Unavailable Allergies, Adverse Reactions, Alerts Substance Reaction Event Type N.K.D.A. Info Not Available Non Drug Allergy Problems Problem Type Condition Code Onset Dates Condition Status Assessment Right wrist pain M25.531 Active Assessment Other closed fracture of distal S52.599P Active end of right radius with routine healing, subsequent encounter Medications Medication Code Code Instructions Start End Status Dosage System Date Date Acetaminophen-C [facility] [address]-36 Active not odeine #3 defined Crestor [facility] [address]-16 Active not defined Ambien [facility] 85065006453 5 MG Orally 28 September Active 1 tablet PO Q HS PRN 2018 at bedtime SLEEP Hydrocodone-Agustín [facility] [address]-84 Active not taminophen defined Xarelto [facility] [address]-35 Active not defined Zolpidem [facility] [address]-83 Active not Tartrate defined Ambien [facility] 27250046648 5 MG Orally September Active 1 tablet Once a day 2018 at bedtime Bystolic [facility] [address]-61 Active not defined Amoxicillin [facility] [address]-10 Active not defined Results No Known Results Summary [facility]
--- OUTSIDE RECORDS SUMMARY | 2018-11-30 16:59 | XMS REPORT ---
:1940 Author Organization [employer] Care Team Providers Name Role Phone Carter Solomon Provider Role Unavailable Allergies, Adverse Reactions, Alerts Substance Reaction Event Type N.K.D.A. Info Not Available Non Drug Allergy Problems Problem Type Condition Code Onset Dates Condition Status Assessment Right wrist pain M25.531 Active Assessment Closed displaced intertrochanteric S72.141A Active fracture of right femur, initial encounter Assessment Right hip pain M25.551 Active Assessment Closed fracture of distal end of S52.501A Active right radius, unspecified fracture morphology, initial encounter Medications Medication Code Code Instructions Start End Status Dosage System Date Date Crestor [facility] [address]-57 Active not defined Bystolic [facility] [address]-02 Active not defined Xarelto [facility] [address]-48 Active not defined Acetaminophen-C [facility] [address]-98 Active not odeine #3 defined Zolpidem [facility] [address]-92 Active not Tartrate defined Amoxicillin [facility] [address]-24 Active not defined Ambien [facility] 30207146295 5 MG Orally 28 September Active 1 tablet PO Q HS PRN 2018 at bedtime SLEEP Hydrocodone-Agustín [facility] [address]-38 Active not taminophen defined Results No Known Results Summary Purpose [employer] Submission
--- OUTSIDE RECORDS SUMMARY | 2018-11-30 17:00 | XMS REPORT ---
:1940 Author Organization [employer] Care Team Providers Name Role Phone CarterSolomon Provider Role Unavailable Allergies, Adverse Reactions, Alerts Substance Reaction Event Type N.K.D.A. Info Not Available Non Drug Allergy Problems Problem Type Condition Code Onset Dates Condition Status Assessment Other closed fracture of distal S52.591D Active end of right radius with routine healing, subsequent encounter Assessment Closed displaced intertrochanteric S72.141D Active fracture of right femur with routine healing, subsequent encounter Problem Closed displaced intertrochanteric S72.141D Active fracture of right femur with routine healing, subsequent encounter Problem Pain of right hip joint pain M25.551 Active Problem Pain in joint of right wrist M25.531 Active Assessment Pain of right hip joint pain M25.551 Active Assessment Pain in joint of right wrist M25.531 Active Problem Other closed fracture of distal S52.591D Active end of right radius with routine healing, subsequent encounter Medications Medication Code Code Instructions Start End Status Dosage System Date Date Bystolic [facility] [address]-85 Active not defined Ambien [facility] 26134390316 5 MG Orally September Active 1 tablet Once a day 2018 at bedtime Amoxicillin [facility] [address]-70 Active not defined Acetaminophen-C [facility] [address]-88 Active not odeine #3 defined Zolpidem [facility] [address]-32 Active not Tartrate defined Xarelto [facility] [address]-04 Active not defined Ambien [facility] 54114479734 5 MG Orally 28 September Active 1 tablet PO Q HS PRN 2018 at bedtime SLEEP Hydrocodone-Agustín [facility] [address]-80 Active not taminophen defined Crestor [facility] [address]-12 Active not defined Results No Known Results Summary Purpose [employer] Submission
--- NOTE | 2018-11-30 17:21 | EDPHYS ---
Physician Documentation [facility] Name: Antonio Valdivia Age: 78 yrs Sex: Male : 1940 Arrival Date: 11/30/2018 Time: 16:58 Bed 9 Private MD: Candido Stern T ED Physician Isacc Rodrigez HPI: 11/30 17:25 This 78 yrs old Male presents to ER via Ambulatory with complaints of Rash. snw 17:25 The patient's rash thought to be caused by Dermatitis. The rash is located on the left snw axilla and left anterior chest wall, left tricep area. The rash can be described as patchy, vesicular. Onset: The symptoms/episode began/occurred suddenly, 2 day(s) ago, and became persistent. Severity of symptoms: At their worst the symptoms were moderate. The patient has not experienced similar symptoms in the past, but family has similar symptoms, spouse. pt was hospitalized x 19 days recently for right hip and right forearm fx. Historical: - Allergies: 17:02 No Known Allergies; sv - PMHx: 17:02 Atrial Fib; Hypertension; sv - Immunization history:: Adult Immunizations up to date. - Social history:: Smoking status: Patient/guardian denies using tobacco. - Ebola Screening: : No symptoms or risks identified at this time. ROS: 17:25 Constitutional: Negative for fever, chills, and weight loss, Eyes: Negative for injury, snw pain, redness, and discharge, ENT: Negative for injury, pain, and discharge, Neck: Negative for injury, pain, and swelling, Cardiovascular: Negative for chest pain, palpitations, and edema, Respiratory: Negative for shortness of breath, cough, wheezing, and pleuritic chest pain, Abdomen/GI: Negative for abdominal pain, nausea, vomiting, diarrhea, and constipation, Back: Negative for injury and pain, : Negative for injury, bleeding, discharge, and swelling, MS/Extremity: Negative for injury and deformity, Neuro: Negative for headache, weakness, numbness, tingling, and seizure, Psych: Negative for depression, anxiety, suicide ideation, homicidal ideation, and hallucinations. 17:25 Skin: Positive for rash. Exam: 17:30 Constitutional: This is a well developed, well nourished patient who is awake, alert, snw and in no acute distress. Head/Face: Normocephalic, atraumatic. Eyes: Pupils equal round and reactive to light, extra-ocular motions intact. Lids and lashes normal. Conjunctiva and sclera are non-icteric and not injected. Cornea within normal limits. Periorbital areas with no swelling, redness, or edema. ENT: Nares patent. No nasal discharge, no septal abnormalities noted. Tympanic membranes are normal and external auditory canals are clear. Oropharynx with no redness, swelling, or masses, exudates, or evidence of obstruction, uvula midline. Mucous membranes moist. Neck: Trachea midline, no thyromegaly or masses palpated, and no cervical lymphadenopathy. Supple, full range of motion without nuchal rigidity, or vertebral point tenderness. No Meningismus. Chest/axilla: Normal chest wall appearance and motion. Nontender with no deformity. No lesions are appreciated. Cardiovascular: Regular rate and rhythm with a normal S1 and S2. No gallops, murmurs, or rubs. Normal PMI, no JVD. No pulse deficits. Respiratory: Lungs have equal breath sounds bilaterally, clear to auscultation and percussion. No rales, rhonchi or wheezes noted. No increased work of breathing, no retractions or nasal flaring. Abdomen/GI: Soft, non-tender, with normal bowel sounds. No distension or tympany. No guarding or rebound. No evidence of tenderness throughout. Back: No spinal tenderness. No costovertebral tenderness. Full range of motion. MS/ Extremity: Pulses equal, no cyanosis. Neurovascular intact. Full, normal range of motion. Neuro: Awake and alert, GCS 15, oriented to person, place, time, and situation. Cranial nerves II-XII grossly intact. Motor strength 5/5 in all extremities. Sensory grossly intact. Cerebellar exam normal. Normal gait. Psych: Awake, alert, with orientation to person, place and time. Behavior, mood, and affect are within normal limits. 17:30 Skin: Appearance: normal except for affected area, shingles. Vital Signs: 17:02 BP 173 / 99; Pulse 50; Resp 18; Temp 98.3; Pulse Ox 100% ; Weight 70.31 kg; Height 5 sv ft. 11 in. (180.34 cm); Pain 6/10; 17:02 Body Mass Index 21.62 (70.31 kg, 180.34 cm) sv MDM: 17:08 Patient medically screened. snw 17:24 Data reviewed: vital signs, nurses notes. Data interpreted: Pulse oximetry: on room air snw is 100 %. Interpretation: normal. Counseling: I had a detailed discussion with the patient and/or guardian regarding: the historical points, exam findings, and any diagnostic results supporting the discharge/admit diagnosis, the need for outpatient follow up, to return to the emergency department if symptoms worsen or persist or if there are any questions or concerns that arise at home. Response to treatment: There is no appreciated change of the patient's symptoms at this time. Special discussion: I have referred the patient to see his PCP for further evaluation of high blood pressure. Based on the history and exam findings, there is no indication for further emergent testing or inpatient evaluation. I discussed with the patient/guardian the need to see the primary care provider for further evaluation of the symptoms. Administered Medications: 17:36 Drug: Valtrex 1000 mg Route: PO; hb 17:36 Follow up: Response: Medication administered at discharge. hb 17:36 Drug: predniSONE 20 mg Route: PO; hb 17:36 Follow up: Response: Medication administered at discharge. hb 17:36 Drug: Pepcid 20 mg Route: PO; hb 17:37 Follow up: Response: Medication administered at discharge. hb Disposition: 11/30/18 17:20 Discharged to Home. Impression: Zoster [herpes zoster]. - Condition is Stable. - Discharge Instructions: Shingles. - Prescriptions for Valtrex 1 g Oral Tablet - take 1 tablet by ORAL route every 8 hours for 7 days; 21 tablet. Prednisone 20 mg Oral Tablet - take 1 tablet by ORAL route 2 times per day for 5 days; 10 tablet. Pepcid 20 mg Oral Tablet - take 1 tablet by ORAL route once daily; 20 tablet. - Medication Reconciliation Form, Thank You Letter, Antibiotic Education, Prescription Opioid Use form. - Follow up: Candido Stern MD; When: 1 week; Reason: Recheck today's complaints, Continuance of care, Re-evaluation by your physician. Follow up: Emergency Department; When: As needed; Reason: Worsening of condition. Addendum: 12/01/2018 22:27 Co-signature as Attending Physician, Isacc Rodrigez MD. r n Signatures: Blanca Sawyer RN RN Karen Coe, MANAGER SCIENTIFIC-C MANAGER SCIENTIFIC-Csnw Isacc Rodrigez MD MD rn Baxter, Heather, RN RN Corrections: (The following items were deleted from the chart) 11/30 17:37 17:20 11/30/2018 17:20 Discharged to Home. Impression: Zoster [herpes zoster]. hb Condition is Stable. Forms are Medication Reconciliation Form, Thank You Letter, Antibiotic Education, Prescription Opioid Use. Follow up: Candido Stern; When: 1 week; Reason: Recheck today's complaints, Continuance of care, Re-evaluation by your physician. Follow up: Emergency Department; When: As needed; Reason: Worsening of condition. snw
--- NOTE | 2018-11-30 17:21 | ER ---
Nurse's Notes [facility] Name: Antonio Valdivia Age: 78 yrs Sex: Male : 1940 Arrival Date: 11/30/2018 Time: 16:58 Bed 9 Private MD: Candido Stern T Diagnosis: Zoster [herpes zoster] Presentation: 11/30 17:01 Presenting complaint: Patient states: rash noted under the left arm and has spread to sv under the left armpit. Transition of care: patient was not received from another setting of care. Onset of symptoms was November 2018. Care prior to arrival: None. 17:01 Method Of Arrival: Ambulatory sv 17:01 Acuity: ZURI 4 sv 17:11 Risk Assessment: Do you want to hurt yourself or someone else? Patient reports no hb desire to harm self or others. Initial Sepsis Screen: Does the patient meet any 2 criteria? No. Patient's initial sepsis screen is negative. Does the patient have a suspected source of infection? No. Patient's initial sepsis screen is negative. Triage Assessment: 17:06 General: Appears in no apparent distress. uncomfortable, Behavior is calm, cooperative, sv appropriate for age. Pain: Complains of pain in left axilla and left bicep Pain currently is 6 out of 10 on a pain scale. Pain began about a week Is continuous. Neuro: Level of Consciousness is awake, alert, obeys commands, Oriented to person, place, time, situation, Gait is steady, with his cane. Respiratory: Airway is patent Respiratory effort is even, unlabored, Respiratory pattern is regular, symmetrical. Derm: Rash noted that is red, raised, vesicular, on left axilla and left bicep. Historical: - Allergies: 17:02 No Known Allergies; sv - PMHx: 17:02 Atrial Fib; Hypertension; sv - Immunization history:: Adult Immunizations up to date. - Social history:: Smoking status: Patient/guardian denies using tobacco. - Ebola Screening: : No symptoms or risks identified at this time. Screenin:07 Abuse screen: Denies threats or abuse. Denies injuries from another. Nutritional sv screening: No deficits noted. Tuberculosis screening: No symptoms or risk factors identified. Fall Risk None identified. Assessment: 17:07 Reassessment: Patient appears in no apparent distress at this time. No changes from sv previously documented assessment. See triage assessment. Vital Signs: 17:02 BP 173 / 99; Pulse 50; Resp 18; Temp 98.3; Pulse Ox 100% ; Weight 70.31 kg; Height 5 sv ft. 11 in. (180.34 cm); Pain 6/10; 17:02 Body Mass Index 21.62 (70.31 kg, 180.34 cm) ED Course: 16:58 Patient arrived in ED. as 17:00 Candido Stern MD is Private Physician. as 17:02 Triage completed. sv 17:02 Arm band placed on. sv 17:07 Awaiting ED provider evaluation. sv 17:07 Patient has correct armband on for positive identification. Adult w/ patient. sv 17:08 Karen Jerez F[facility]-C [facility]. snw 17:08 Isacc Rodrigez MD is Attending Physician. snw 17:10 Teresa Martini, RN is Primary Nurse. hb 17:20 Candido Stern MD is Referral Physician. snw 17:37 No provider procedures requiring assistance completed. Patient did not have IV access hb during this emergency room visit. Administered Medications: 17:36 Drug: Valtrex 1000 mg Route: PO; hb 17:36 Follow up: Response: Medication administered at discharge. hb 17:36 Drug: predniSONE 20 mg Route: PO; hb 17:36 Follow up: Response: Medication administered at discharge. hb 17:36 Drug: Pepcid 20 mg Route: PO; hb 17:37 Follow up: Response: Medication administered at discharge. hb Outcome: 17:20 Discharge ordered by . snw 17:37 Discharged to home ambulatory, with family. hb 17:37 Condition: stable 17:37 Discharge instructions given to patient, Instructed on discharge instructions, follow up and referral plans. medication usage, Demonstrated understanding of instructions, follow-up care, medications, Prescriptions given X 3. 17:37 Patient left the ED. hb Signatures: Blanca Sawyer RN RN Karen Jerez FNP-C FNP-Yeniw Emmie Carbajal as Teresa Martini RN RN hb
[2018-11-30] MEDS ORDERED: VALACYCLOVIR 500 MG TAB ONE (17:40)
[2018-11-30] MEDS ORDERED: FAMOTIDINE 20 MG TAB ONE (17:40)
[2018-11-30] MEDS ORDERED: predniSONE 20 MG TAB ONE (17:40)
== END 2018-11-30 17:37 | disposition home or self-care (01) ==
LOC: ER 16:57
DX: B02.9 Zoster without complications (principal); I10 Essential (primary) hypertension; I48.91 Unspecified atrial fibrillation
CPT/HCPCS: 99283; J7512

== ENCOUNTER 2022-04-29 06:35 | Day surgery (SDC) | payer OTHER ==
[2022-04-25 09:23] LABS: Absolute Lymphocytes (CBC) 1.1 K/uL (0.7-4.9); Hematocrit 45.9 % (39.6-49.0); MCV 89.5 fL (80-100); MPV 8.1 fL (7.6-11.3); RBC Red Blood Cell Count 5.12 M/uL (4.33-5.43)
[2022-04-25 09:36] LABS: SARS-CoV-2 Antigen Rapid Res Negative (Negative)
[2022-04-25 09:44] LABS: Potassium 3.7 mmol/L (3.5-5.1)
--- NOTE | 2022-04-25 11:15 | RAD REPORT ---
EXAM DESCRIPTION: Floyd Smith (2 Views)04/25/2022 10:35 am CLINICAL HISTORY: Preop for mass removal. Hypertension. COMPARISON: 2018 FINDINGS: Lungs are moderately hyperaerated. The lungs appear clear of acute infiltrate. The heart is normal size IMPRESSION: No acute abnormalities displayed
[2022-04-29] MEDS ORDERED: Ringers Lactate 1,000 ML IV ONE (06:56)
[2022-04-29] MEDS ORDERED: NA CHLORIDE 0.9% 50 ML ONE (06:56)
[2022-04-29] MEDS ORDERED: CEFAZOLIN SODIUM 1 GM/VIAL ONE (06:56)
[2022-04-29] MEDS ORDERED: BUPIVACAINE 0.5% PF 10 ML VIAL ONE (07:07)
[2022-04-29] MEDS ORDERED: MIDAZOLAM HCL 2 MG/2 ML INJ ONE (07:14)
[2022-04-29] MEDS ORDERED: FENTANYL CITR 100 MCG/2 ML ONE (07:14)
[2022-04-29] MEDS ORDERED: propofoL 200 MG/20 ML VIAL IV ONE (07:14)
[2022-04-29] MEDS ORDERED: LIDOCAINE 1% MPF 5 ML VIAL ONE (07:14)
[2022-04-29] MEDS ORDERED: ONDANSETRON 4 MG/2 ML VIAL ONE (07:16)
[2022-04-29] MEDS ORDERED: BUPIVACAINE 0.5% PF 10 ML VIAL SQ ONE (08:00)
[2022-04-29 08:03] VITALS: O2SAT 100
[2022-04-29] MEDS ORDERED: Mastisol Adhesive Liq ONE (08:08)
[2022-04-29] MEDS ORDERED: HYDROCODONE/APAP 7.5/325 MG TAB PO PRN (08:23)
--- NOTE | 2022-04-29 08:31 | P.OP ---
Date of Service: 04/29/22 Preop diagnosis: Neck mass Postop diagnosis: Same Procedure performed: Wide excision neck mass 4 x 2 cm with layered closure Surgeon: Maicol Anna MD Supervisor Painting: Corine RAMOS Estimated blood loss: Minimal Specimen: Neck mass Findings: As above Anesthesia: General Complications: None Drains: None Fluids and blood products: Nonapplicable Disposition: Recovery room Operative note: Patient brought to the OR and placed in the supine position. General anesthesia begun. Patient prepped and draped in the usual sterile f ashion. Marcaine 0.5% infiltrated locally for postop pain control. 15 blade used to make a 4 x 2 cm incision on the anterior lower neck overlying a 3 cm mass. Subcutaneous tissue divided and bleeding controlled with cautery. Entire mass excised. Mass sent to pathology as specimen. Wound irrigated and bleeding controlled cautery. 4-0 chromic used to approximate subcutaneous tissue and close skin. Sterile dressing applied. Patient awakened and taken to recovery room in good general condition. CC: Dr. Stern's office
[2022-04-29] MEDS ORDERED: GLYCOPYRROLATE 0.2 MG/ML SYR ONE (08:53)
[2022-04-29 10:37] VITALS: BP 155/70; TEMP 96.7
--- NOTE | 2022-05-02 14:17 | EKG ---
Test Date: 2022-04-29 Test Time: 07:22:04 Dethistler Operator: SURY MEASUREMENT RESULTS: Intervals: Rate: 52 VT: QRSD: 160 QT: 532 QTc: 494 Point Lay: P: VT: QRS: 87 T: 32 INTERPRETIVE STATEMENTS: Atrial fibrillation with slow ventricular response Left bundle branch block Abnormal ECG Compared to ECG 09/17/2018 21:21:13 Sinus bradycardia no longer present Electronically Signed On 05-02-22 14:14:26 CDT by Serjio Zacarias
== END 2022-04-29 09:57 | disposition home or self-care (01) ==
LOC: OR 06:35
PROVIDERS: ATTEND Surgery
PROC: 0JB50ZZ Excision of Left Neck Subcutaneous Tissue and Fascia, Open Approach (ICD-10-PCS; principal; 2022-04-29 07:30)
DX: L72.0 Epidermal cyst (principal); Z20.822 Contact with and (suspected) exposure to COVID-19
CPT/HCPCS: 93005; 85025; 80048; 36415; 88304; 71046; 87811; 11424; J2704; J2001; J3010; J7120; J2405; J0690; 88305; J2250

== ENCOUNTER 2023-08-27 20:43 | Inpatient (IN) | payer OTHER ==
--- OUTSIDE RECORDS SUMMARY | 2023-08-27 20:45 | XMS REPORT | Continuity of Care Document ---
Author Name Unknown Address [address] [place] [address] [facility] thconnect Address [address] [place] [address] Care Team Providers Care Exhibit Display Representative Name Role Phone Candido Stern Attending Clinician Unavailable Payers Payer Name Policy Type Policy Number Effective Date Expirati on Date Source [employer] MEDICARE C1 [id number] Commo n [facility] Problems Condition Name Condition Details Condition Category Status Onset Date Resolution Date Last Treatment Date Treating Clinician Comments Source [id number] Pain of right hip joint pain Problem Active [facility] [id number] Closed displaced intertroch anteric fracture of right femur with routine healing, subsequent encounter Problem Active [facility] [id number] Pain in joint of right wrist Problem Active [facility] [id number] Other closed fracture of distal end of right radius with routine healing, subsequent encounter Problem Active [facility] Social History Social Habit Start Date Stop Date Quantity Comments Source History of Tobacco Use [facility] Sex Assigned At [facility] Smoking Status Start Date Stop Date Source Former Smoker 2021-05-04 00:00:00 2021-05-04 00:00:00 [facility] Medications Ordered Medication Name Filled Medication Name Start Date Stop Date Current Medication? Ordering Clinician Indication Dosage Frequency Signature (SIG) Comments Components Source Kathya Rasheed 2018-0 10-19 00:00: 00 Yes Solomon Carter 1 tablet at bedtime [facility] Ambien 5 MG Ambien 5 MG 3- 00:00: 00 No 1{table t_at_be dtime} QD Ambien 5 MG Ambien 5 MG Ambien 5 MG 3-08 00:00: 00 No 1{table t_at_be dtime} Ambien 5 MG Crestor Crestor Yes Solomon Carter not defined [facility] Bystolic Bystolic Yes Solomon Carter not defined [facility] Acetaminoph en-Codeine #3 Acetaminoph en-Codeine #3 Yes Solomon Carter not defined [facility] Amoxicillin Amoxicillin Yes Solomon Carter not defined [facility] Hydrocodone -Acetaminop hen Hydrocodone -Acetaminop hen Yes Solomon Carter not defined [facility] Zolpidem Tartrate Zolpidem Tartrate Yes Solomon Carter not defined [facility] Xarelto Xarelto Yes Solomon Carter not defined [facility] Zolpidem Tartrate Zolpidem Tartrate No Zolpidem Tartrate HYDROcodone -Acetaminop hen HYDROcodone -Acetaminop hen No HYDROcodon e-Acetamin ophen Amoxicillin Amoxicillin No Am oxicilli n Acetaminoph en-Codeine #3 Acetaminoph en-Codeine #3 No Acetaminop hen-Codein e #3 Xarelto 20 MG Xarelto 20 MG No 1{table t_with_ food} QD Xarelto 20 MG Crestor 20 MG Crestor 20 MG No 1{table t} QD Crestor 20 MG Vitamin C Vitamin C No Vitamin C Bystolic 10 MG Bystolic 10 MG No 1{table t} QD Bystolic 10 MG Vital Signs Vital Name Observation Time Observation Value Comments S ource height 2021-05-04 10:40:00 71 [in_i] Commo n [facility] weight 2021-05-04 10:40:00 162.2 [lb_av] Co mmon [facility] temperature 2021-05-04 10:40:00 98.5 [degF] Com mon [facility] bmi 2021-05-04 10:40:00 22.62 kg/m2 Comm on [facility] oximetry 2021-05-04 10:40:00 100 % Commo n [facility] blood pressure systolic 2021-05-04 10:40:00 174 mm[Hg] [facility] blood pressure diastolic 2021-05-04 10:40:00 102 mm[Hg] [facility] Encounters Start Date/Time End Date/Time Encounter Type Admission Type Attending Clinicians Care Facility Care Department Encounter ID Source 2021-08-25 13:55:51 Outpatient Candido Stern [facility] [id number] [facility] 2021-05-04 00:00:00 2021-05-04 00:00:00 OFFICE VISIT NEW PT LEVEL 3 [facility] [id number] [facility] 2019-02-18 13:30:00 2019-02-18 13:30:00 Outpatient [facility] [id number] [facility] 2018-12-13 09:59:00 2018-12-13 09:59:00 [facility] [id number] [facility] 2018-11-15 11:00:00 2018-11-15 11:00:00 [facility] [id number] [facility] 2018-10-18 15:00:00 2018-10-18 15:00:00 [facility] [id number] [facility] 2018-10-10 14:00:00 2018-10-10 14:00:00 [facility]patient [facility] [id number] [facility]
[2023-08-27 21:06] LABS: Absolute Lymphocytes (CBC) 1.3 K/uL (0.7-4.9); Hematocrit 43.2 % (39.6-49.0); Lymphocytes % 27.5 % (15.3-44.8); MCV 88.9 fL (80-100); MPV 7.6 fL (7.6-11.3); Platelets 166 thou/uL (152-406); RBC Red Blood Cell Count 4.86 M/uL (4.33-5.43)
[2023-08-27 21:10] LABS: Protime INR 1.4
[2023-08-27 21:23] LABS: Potassium 3.4 mEq/L (3.5-5.1); Troponin High Sensitivity 23.8 pg/mL (<58.9)
[2023-08-27] MEDS ORDERED: NA CHLORIDE 0.9% 250 ML ONE (21:23)
[2023-08-27 21:24] LABS: SARS-CoV-2 Antigen Rapid Res Negative (Negative)
--- NOTE | 2023-08-27 21:32 | RAD REPORT ---
EXAM DESCRIPTION: RAD - Chest Single View - 08/27/2023 9:19 pm CLINICAL HISTORY: PALPITATIONS COMPARISON: Chest Pa And Lat (2 Views) dated 04/25/2022; Chest Single View dated 09/17/2018; CHEST SIN GLE VIEW dated 01/30/2010; CHEST PA AND LAT 2 VIEW dated 05/29/2008 FINDINGS: Lines: None. Lungs: No evidence of edema or pneumonia. Pleural: No significant pleural effusions or pneumothorax. Cardiac: Cardiomegaly. Mediastinum: Within normal limits. Bones: No acute fractures. Other: None IMPRESSION: No acute cardiopulmonary disease.
--- NOTE | 2023-08-27 21:53 | RAD REPORT ---
EXAM DESCRIPTION: CT - Head Brain Wo Cont - 08/27/2023 9:40 pm CLINICAL HISTORY: near syncope;Dizziness COMPARISON: Head Brain Wo Cont dated 09/17/2018 TECHNIQUE: All CT scans are performed using dose optimization technique as appropriate and may inclu de automated exposure control or mA/KV adjustment according to patient size. FINDINGS: No intracranial hemorrhage, hydrocephalus or extra-axial fluid collection.No areas of brai n edema or evidence of midline shift. Cerebral atrophy. Mucous retention cyst right maxillary sinus. Mild left maxillary sinus thickening. The calvarium is i ntact. IMPRESSION: No acute intracranial abnormality.
--- NOTE | 2023-08-27 22:14 | EDPHYS ---
Physician Documentation [facility] Name: Antonio Valdivia Age: 83 yrs Sex: Male : 1940 Arrival Date: 08/27/2023 Time: 20:43 Bed 17 Private MD: ED Physician Isacc Rodrigez HPI: 08/27 21:00 This 83 yrs old Male presents to ER via Unassigned with complaints of dizziness. rn 21:00 The patient presents with dizziness, feeling faint, generalized weakness, rn lightheadedness. Onset: The symptoms/episode began/occurred 1 hour(s) ago. Modifying factors: The symptoms are alleviated by nothing, the symptoms are aggravated by standing up. Associated signs and symptoms: Pertinent positives: diaphoresis, near-syncope, palpitations, Pertinent negatives: abdominal pain, chest pain, confusion, focal weakness, head injury, headache, seizure, shortness of breath, syncope, tingling, vomiting. Severity of symptoms: At their worst the symptoms were moderate in the emergency department the symptoms have improved. The patient has not experienced similar symptoms in the past. The patient has not recently seen a physician. Patient reports sitting down doing crossword puzzle and watching football game when felt dizziness with associated diaphoresis and palpitations. No fever. No recent illness. Has history of atrial fibrillation. [place] totally fine prior to episode. No shortness of breath. Reports when stood up felt really lightheaded like was going to pass out and sat back down into a chair and called 911. Denies focal weakness or numbness.. Historical: - Allergies: 21:47 No Known Allergies; nw1 - Home Meds: 21:47 losartan oral [Active]; nw1 - PMHx: 21:47 Atrial Fib; Hypertension; nw1 - Immunization history:: Adult Immunizations up to date, Client reports receiving the 2nd dose of the Covid vaccine, Last tetanus immunization: up to date Flu vaccine is up to date. RSV 05/22. - Social history:: Smoking status: Patient denies any tobacco usage or history of. - Family history:: not pertinent. - Hospitalizations: : No recent hospitalization is reported. ROS: 21:00 Constitutional: Negative for fever, chills, and weight loss, Eyes: Negative for injury, rn pain, redness, and discharge, Neck: Negative for injury, pain, and swelling, Cardiovascular: Negative for chest pain, positive for palpitations Respiratory: Negative for shortness of breath, cough, wheezing, and pleuritic chest pain, Abdomen/GI: Negative for abdominal pain, nausea, vomiting, diarrhea, and constipation, Back: Negative for injury and pain, MS/Extremity: Negative for injury and deformity, Skin: Negative for injury, rash, and discoloration, Neuro: Negative for weakness, numbness, tingling, and seizure Exam: 21:00 Constitutional: This is a well developed, well nourished patient who is awake, alert, rn and in no acute distress. Head/Face: Normocephalic, atraumatic. ENT: Dry mucous membranes Cardiovascular: Regular rate, irregular rhythm. No pulse deficits Respiratory: No increased work of breathing, no retractions or nasal flaring. Abdomen/GI: Soft, non-tender Skin: Warm, dry MS/ Extremity: Pulses equal, no cyanosis. Neurovascular intact. Full, normal range of motion. Equal circumference. Neuro: Awake and alert, GCS 15, oriented to person, place, time, and situation. Cranial nerves II-XII grossly intact. Motor strength 5/5 in all extremities. Sensory grossly intact. Cerebellar exam normal. Vital Signs: 20:59 BP 154 / 81; Pulse 78; Resp 18; Temp 97.9(O); Pulse Ox 100% on R/A; Weight 72.57 kg; nw1 Height 6 ft. 1 in. ; Pain 0/10; 21:00 BP 154 / 93 Supine; Pulse 78; 21:02 BP 151 / 99 Sitting; Pulse 86; 21:04 BP 169 / 92 Standing; Pulse 75; 22:00 BP 167 / 90; Pulse 68; Pulse Ox 100% ; 22:39 BP 166 / 76; Pulse 73; Resp 15; Pulse Ox 100% ; 23:00 BP 168 / 93; Pulse 77; Resp 17; Pulse Ox 100% ; 08/28 00:00 BP 148 / 85; Pulse 60; Pulse Ox 100% ; 08/27 20:59 Body Mass Index 21.11 (72.57 kg, 185.42 cm) 08/27 20:59 Pain Scale: Adult 08/27 21:00 denies symptoms 21:02 pt states increased lightheadness nw1 21:04 pt states feeling lightheaded. nw1 [place] Coma Score: 22:39 Eye Response: spontaneous(4). Motor Response: obeys commands(6). Verbal Response: nw1 oriented(5). Total: 15. MDM: 20:43 Patient medically screened. rn 22:11 Differential diagnosis: cardiac arrhythmia, CVA, generalized weakness, hypovolemia, rn idiopathic dizziness, near-syncope, TIA, vertigo. Data reviewed: vital signs, nurses notes, lab test result(s), EKG, radiologic studies, CT scan, plain films, and as a result, I will admit patient. Consideration of Admission/Observation Patient was admitted/placed on observation. Escalation of care including admission/observation considered. Management of patient was discussed with the following: Hospitalist: Discussed case with hospitalist, will see and admit patient. Care significantly affected by the following chronic conditions: Hypertension, Atrial fibrillation. Counseling: I had a detailed discussion with the patient and/or guardian regarding the historical points, exam findings, and any diagnostic results supporting the discharge/admit diagnosis, lab results, radiology results, the need for further work-up and treatment in the hospital. Response to treatment: the patient's symptoms have mildly improved after treatment, and as a result, I will admit patient. ED course: No acute findings and workup. CT head negative. Chest x-ray negative. Given diaphoresis and palpitations with near syncope while at rest with sudden onset, decision made to observe patient in hospital for further cardiac evaluation. Patient sees Dr. Zacarias for cardiology. Currently in atrial fibrillation but rate controlled. Patient takes blood thinners.. 08/27 20:45 Order name: Basic Metabolic Panel; Complete Time: : rn 08/27 20:45 Order name: CBC with Diff; Complete Time: : rn 08/27 20:45 Order name: NT PRO-BNP; Complete Time: : rn 08/27 20:45 Order name: PT-INR; Complete Time: : rn 08/27 20:45 Order name: Troponin HS; Complete Time: : rn 08/27 20:45 Order name: SARS RAPID; Complete Time: : rn 08/27 20:45 Order name: Flu; Complete Time: : rn 08/27 23:12 Order name: Urinalysis w/ reflexes EDMS 08/27 23:12 Order name: CBC with Automated Diff EDMS 08/27 23:12 Order name: CBC with Automated Diff EDMS 08/27 23:12 Order name: Comprehensive Metabolic Panel EDMS 08/27 23:12 Order name: Comprehensive Metabolic Panel EDMS 08/27 23:12 Order name: Magnesium EDMS 08/27 23:12 Order name: Magnesium EDMS 08/27 23:12 Order name: Phosphorus EDMS 08/27 23:12 Order name: Phosphorus EDMS 08/27 23:12 Order name: Troponin High Sensitivity EDMS 08/27 23:12 Order name: Troponin High Sensitivity EDMS 08/27 23:21 Order name: Lipid Profile EDHI 08/27 20:45 Order name: XRAY Chest (1 view); Complete Time: 21:41 rn 08/27 20:45 Order name: CT Head Brain wo Cont; Complete Time: 21:54 rn 08/27 23:19 Order name: Echo with Doppler EDHI 08/27 23:19 Order name: Stroke Protocol EDHI 08/27 23:21 Order name: Carotid Artery Bilateral EDHI 08/27 20:45 Order name: EKG; Complete Time: 20:45 rn 08/27 20:45 Order name: Cardiac monitoring; Complete Time: 21:19 rn 08/27 20:45 Order name: EKG - Nurse/Tech; Complete Time: 20:52 rn 08/27 20:45 Order name: IV Saline Lock; Complete Time: 21:19 rn 08/27 20:45 Order name: Labs collected and sent; Complete Time: 21:19 rn 08/27 20:45 Order name: O2 Per Protocol; Complete Time: 21:19 rn 08/27 20:45 Order name: O2 Sat Monitoring; Complete Time: 21:19 rn Administered Medications: 21:37 Drug: NS 0.9% IV 250 ml IV at 1 bolus once Route: IV; Rate: 1 bolus; Site: left nw1 antecubital; Disposition Summary: 08/27/23 22:13 Hospitalization Ordered Notes: Hospitalization Status: Observation rn Provider: Rg Lawson rn Location: Telemetry/MedSurg (observation) rn Condition: Stable rn Problem: new rn Symptoms: have improved rn Bed/Room Type: Standard rn Room Assignment: 407(08/27/23 23:15) pm6 Diagnosis - Near syncope rn - Unspecified atrial fibrillation rn - Dizziness and giddiness rn Forms: - Medication Reconciliation Form rn - SBAR form rn - Leadership Thank You Letter rn Signatures: Dispatcher [employer] Isacc Maloney MD MD rn Williams, Nicole, RN RN nw1 Roseann Villegas pm6 Corrections: (The following items were deleted from the chart) 23:15 22:13 rn pm6
--- NOTE | 2023-08-27 22:14 | ER ---
Nurse's Notes [facility] Name: Antonio Valdivia Age: 83 yrs Sex: Male : 1940 Arrival Date: 08/27/2023 Time: 20:43 Bed 17 Private MD: Diagnosis: Near syncope;Unspecified atrial fibrillation;Dizziness and giddiness Presentation: 08/27 20:59 Chief complaint: Patient states: lightheaded and LOC when standing from a seated nw1 position. 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 Date April 2023 Client denies travel out of the [place] in the last 14 days. At this time, the client does not indicate any symptoms associated with coronavirus-19. Ebola Screen: Patient negative for fever greater than or equal to 101.5 degrees Fahrenheit, and additional compatible Ebola Virus Disease symptoms Patient denies exposure to infectious person. Patient denies travel to an Ebola-affected area in the 21 days before illness onset. No symptoms or risks identified at this time. 20:59 Method Of Arrival: EMS: [facility] nw1 21:04 Initial Sepsis Screen: Does the patient meet any 2 criteria? No. Patient's initial nw1 sepsis screen is negative. Does the patient have a suspected source of infection? No. Patient's initial sepsis screen is negative. Risk Assessment: Do you want to hurt yourself or someone else? Patient reports no desire to harm self or others. Onset of symptoms was August 27, 2023. 21:04 Acuity: ZURI 3 nw1 Triage Assessment: 21:47 General: Appears in no apparent distress. comfortable, well groomed, well developed, nw1 well nourished, Behavior is calm, cooperative, appropriate for age. Pain: Denies pain. Neuro: Reports a syncopal episode "lightheaded". Cardiovascular: Reports history of afib Denies palpitations. Respiratory: No deficits noted. GI: No deficits noted. No signs and/or symptoms were reported involving the gastrointestinal system. Abdomen is round. Musculoskeletal: No deficits noted. No signs and/or symptoms reported regarding the musculoskeletal system. Historical: - Allergies: 21:47 No Known Allergies; nw1 - Home Meds: 21:47 losartan oral [Active]; nw1 - PMHx: 21:47 Atrial Fib; Hypertension; nw1 - Immunization history:: Adult Immunizations up to date, Client reports receiving the 2nd dose of the Covid vaccine, Last tetanus immunization: up to date Flu vaccine is up to date. RSV 05/22. - Social history:: Smoking status: Patient denies any tobacco usage or history of. - Family history:: not pertinent. - Hospitalizations: : No recent hospitalization is reported. Screenin:39 [facility] ED Fall Risk Assessment (Adult) History of falling in the last 3 months, nw1 including since admission Yes- single mechanical fall (1 pt) Confusion or Disorientation No (0 pts) Intoxicated or Sedated No (0 pts) Impaired Gait No (0 pts) Mobility Assist Device Used No (0 pt) Altered Elimination No (0 pt) Score/Fall Risk Level 3 or more points = High Risk Oriented to surroundings, Maintained a safe environment, Educated pt \\T\\ family on fall prevention, incl call for assistance when getting out of bed, Assessed \\T\\ reinforced patient's understanding of fall precautions, Provided non-skid footwear, Hourly rounding (assess needs \\T\\ fall precautionary measures) done, Used ambulatory aids as needed (educated on \\T\\ assisted with). Abuse screen: Denies threats or abuse. Denies injuries from another. Nutritional screening: No deficits noted. Tuberculosis screening: No symptoms or risk factors identified. Assessment: 21:51 Reassessment: See triage assessment. General: Appears in no apparent distress. Behavior nw1 is calm, cooperative, appropriate for age. Vital Signs: 20:59 BP 154 / 81; Pulse 78; Resp 18; Temp 97.9(O); Pulse Ox 100% on R/A; Weight 72.57 kg; nw1 Height 6 ft. 1 in. ; Pain 0/10; 21:00 BP 154 / 93 Supine; Pulse 78; nw1 21:02 BP 151 / 99 Sitting; Pulse 86; nw1 21:04 BP 169 / 92 Standing; Pulse 75; nw1 22:00 BP 167 / 90; Pulse 68; Pulse Ox 100% ; nw1 22:39 BP 166 / 76; Pulse 73; Resp 15; Pulse Ox 100% ; nw1 23:00 BP 168 / 93; Pulse 77; Resp 17; Pulse Ox 100% ; nw1 08/28 00:00 BP 148 / 85; Pulse 60; Pulse Ox 100% ; nw1 08/27 20:59 Body Mass Index 21.11 (72.57 kg, 185.42 cm) nw08/27 20:59 Pain Scale: Adult nw08/27 21:00 denies symptoms nw1 21:02 pt states increased lightheadness nw1 21:04 pt states feeling lightheaded. nw1 Vitals: 22:39 Cardiac Rhythm Assessment Atrial fibrillation. nw1 [place] Coma Score: 22:39 Eye Response: spontaneous(4). Motor Response: obeys commands(6). Verbal Response: nw1 oriented(5). Total: 15. ED Course: 20:43 Patient arrived in ED. rn 20:43 Isacc Rodrigez MD is Attending Physician. rn 21:00 No provider procedures requiring assistance completed. Maintain EMS IV. Dressing nw1 intact. Good blood return noted. Site clean \\T\\ dry. Gauge \\T\\ site: 20 LAC. Flushed right antecubital with 5 ml normal saline. 21:18 Antonietta Mayberry RN is Primary Nurse. nw1 21:20 Flu Sent. nw1 21:20 SARS RAPID Sent. nw1 21:21 XRAY Chest (1 view) In Process Unspecified. EDMS 21:41 CT Head Brain wo Cont In Process Unspecified. EDMS 21:46 Triage completed. nw1 21:47 Arm band placed on left wrist. EKG done per protocol. Labs ordered per protocol. Drawn nw1 by ED staff. X-ray ordered. 22:13 Rg Lawson MD is Hospitalizing Provider. rn 22:39 Patient has correct armband on for positive identification. Placed in gown. Bed in low nw1 position. Call light in reach. Side rails up X2. Adult w/ patient. Provided Education on: POC/hospitalist at bedside at this time, . Client placed on continuous cardiac and pulse oximetry monitoring. NIBP monitoring applied. monitoring manager on. Pulse ox on. NIBP on. 08/28 00:39 Patient admitted, IV remains in place. nw1 Administered Medications: 08/27 21:37 Drug: NS 0.9% IV 250 ml IV at 1 bolus once Route: IV; Rate: 1 bolus; Site: left nw1 antecubital; Medication: 22:39 VIS not applicable for this client. nw1 Outcome: 22:13 Decision to Hospitalize by Provider. rn 08/28 00:30 Admitted to Tele accompanied by nurse, room 407, with chart, Report called to karlie Archer RN 00:30 Condition: stable nw1 00:30 Instructed on the need for admit, 01:23 Patient left the ED. nw1 Signatures: Dispatcher [employer] EDIsacc Freire MD MD rn Williams, Nicole, RN RN nw1 Corrections: (The following items were deleted from the chart) 08/27 21:46 21:38 Chief complaint: Patient states: lightheaded and LOC when standing from a seated nw1 position. 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
[2023-08-27] MEDS ORDERED: ONDANSETRON 4 MG/2 ML VIAL IV PRN (23:09)
[2023-08-27] MEDS ORDERED: POTASSIUM CL SA 10 MEQ TAB PO ONE (23:21)
[2023-08-27] MEDS ORDERED: Ringers Lactate 1,000 ML IV SCH (23:45)
--- NOTE | 2023-08-27 23:55 | P.HP ---
Certification for Inpatient Patient admitted to: Observation With expected LOS: <2 Midnights Practitioner: I am a practitioner with admitting privileges, knowledge of patient current condition, hospital course, and medical plan of care. Services: Services provided to patient in accordance with Admission requirements found in Title 42 Section 412.3 of the Code of Federal Regulations Patient History Date of Service: 08/27/23 Reason for admission: Lightheadedness History of Present Illness: 83-year-old male with a history of hypertension and A-fib on Xarelto was brought to the ED by EMS after he had developed a brief episode of lightheadedness associated with weakness of lower extremities, facial numbness, difficulty remembering words and visual cloudiness. He noted his blood pressure was elevated in the 170s over 100, states that his blood pressure is very controlled at home 120s for systolic and heart rate between 40s to 60s. He had no fall and denied any headache, loss of speech, difficulty swallowing or focal weakness of his extremities. Patient states he was told he has 50% stenosis in both carotids but he cannot remember how long ago the test was done. On arrival to the ED his SBP was 154. CT chest, EKG and troponin were negative. Abnormal lab finding include potassium 3.4, BUN/Cr 20/1.3 and glucose 153. Allergies No Known Allergies Allergy (Verified 04/29/22 08:05) Home Medications: Rivaroxaban [Xarelto] 1 tab PO 1700 09/17/18 Vit C/Ascorb Sod/Multivit-Min [Emergen-C 500 mg Chewable Tab] 1 tab PO DAILY 09/17/18 Acetaminophen [Tylenol Extra Strength] 1 tab PO Q4HP PRN 09/21/18 Rosuvastatin [Crestor*] 20 mg PO BEDTIME 09/21/18 Losartan/Hydrochlorothiazide [Losartan-Hctz 100-25 mg Tab] 1 each PO BEDTIME 04/25/22 - Past Medical/Surgical History Diabetic: No -: HTN -: dyslipidemia -: Afib -: L wrist -: tonsillectomy -: tibial on r foot -: L knee sx -: R knee sx - Family History Father -: Heart disease - Social History Alcohol use: No CD- Drugs: No Caffeine use: Yes Review of Systems 10-point ROS is otherwise unremarkable Physical Examination - Vital Signs Temperature: 97.9 F Blood Pressure: 169/92 Pulse: 78 Respirations: 18 Pulse Ox (%): 100 - Physical Exam General: Alert, In no apparent distress, Oriented x3 HEENT: Atraumatic, Normocephalic, PERRLA, Mucous membr. moist/pink Neck: Supple, JVD not distended, No Thyromegaly Respiratory: Clear to auscultation bilaterally, Normal air movement Cardiovascular: Normal pulses, Regular rate/rhythm, Normal S1 S2 Gastrointestinal: Normal bowel sounds, Soft and benign, No tenderness, No masses Musculoskeletal: No swelling, No erythema, No tenderness Integumentary: No rashes, No significant lesion, No tenderness/swelling, No erythema Neurological: Normal gait, Normal speech, Normal strength at 5/5 x4 extr, Sensation intact - Studies Laboratory Data (last 24 hrs) 08/27/23 08/27/23 08/27/23 20:54 20:54 20:54 WBC 4.70 Hgb 14.7 Hct 43.2 Plt Count 166 PT 15.2 H INR 1.40 Sodium 138 Potassium 3.4 L BUN 20 H Creatinine 1.31 H Glucose 153 H Microbiology Data (last 24 hrs): 08/27/23 20:54 Nasopharnyx Influenza Type A Antigen Screen - Final 08/27/23 20:54 Nasopharnyx Influenza Type B Antigen Screen - Final Assessment and Plan - Plan Lightheadedness and paresthesia Presyncope A-fib on Xarelto Hypertension Acute kidney injury Plan Admit to telemetry Follow-up MRI brain, carotid Dopplers and echo Electrolyte replacements Aspirin Follow-up A1c and lipid panel IV fluid hydration - Advance Directives Does patient have a Living Will: No Does patient have a Durable POA for Healthcare: No
[2023-08-28 01:34] VITALS: BMI 22.9
[2023-08-28] MEDS ORDERED: POTASSIUM CL SA 10 MEQ TAB PO ONE (01:43)
[2023-08-28 05:16] LABS: Absolute Lymphocytes (CBC) 1.1 K/uL (0.7-4.9); Lymphocytes % 16.1 % (15.3-44.8); MCV 87.7 fL (80-100); MPV 7.7 fL (7.6-11.3); Platelets 179 thou/uL (152-406); RBC Red Blood Cell Count 4.67 M/uL (4.33-5.43)
[2023-08-28 05:36] LABS: Albumin 3.5 g/dL (3.4-5.0); Bilirubin Total 0.6 mg/dL (0.2-1.0); Magnesium 2.2 mg/dL (1.6-2.4); Potassium 3.9 mEq/L (3.5-5.1); Protein, Total 6.6 g/dL (6.4-8.2)
[2023-08-28 06:02] LABS: Troponin High Sensitivity 65.6 pg/mL (<58.9)
[2023-08-28] MEDS: ENOXAPARIN 40 MG/0.4 ML SQ SCH (07:34)
--- NOTE | 2023-08-28 12:05 | RAD REPORT ---
EXAM DESCRIPTION: USCarotid Artery Bilateral08/28/2023 5:44 am CLINICAL HISTORY: Visual loss COMPARISON: None FINDINGS: The velocity of the right internal carotid artery equals 84 cm/sec. The right ICA/CCA rati o normal The velocity of the left internal carotid artery equals 74 cm/sec. The left ICA/CCA ratio normal Mild plaque left common left internal carotid arteries Calcified plaque right carotid bulb and proximal right internal carotid artery results in an approxim ately 45% stenosis The vertebral arteries demonstrate antegrade flow IMPRESSION: No evidence of a hemodynamically significant stenosis NASCET criteria used. Mild 0-49% stenosis Moderate 50-69% stenosis Severe 70-99% stenosis
--- NOTE | 2023-08-28 13:09 | RAD REPORT ---
EXAM DESCRIPTION: US - Lower Extremity Arterial Bilat - 08/28/2023 12:31 pm CLINICAL HISTORY: Leg pain and numbness COMPARISON: None FINDINGS: The common femoral, superficial femoral, popliteal, posterior tibial and dorsalis pedis arteries bila terally demonstrate triphasic and biphasic waveforms. No high-grade stenosis visualized Grayscale, color and spectral analysis performed on all vessels IMPRESSION: Mild bilateral lower extremity arterial disease
--- NOTE | 2023-08-28 18:47 | P.PN ---
Subjective Date of Service: 08/28/23 Chief Complaint: Lightheadedness Patient has no new complain. He denies any chest pain. He has been ambulating dizziness or shortness of breath. Physical Examination - Vital Signs Temperature: 97.8 F Blood Pressure: 152/75 Pulse: 60 Respirations: 19 Pulse Ox (%): 98 - Studies Laboratory Data (last 24 hrs) 08/27/23 08/27/23 08/27/23 20:54 20:54 20:54 WBC 4.70 Hgb 14.7 Hct 43.2 Plt Count 166 PT 15.2 H INR 1.40 Sodium 138 Potassium 3.4 L BUN 20 H Creatinine 1.31 H Glucose 153 H Microbiology Data (last 24 hrs): 08/27/23 20:54 Nasopharnyx Influenza Type A Antigen Screen - Final 08/27/23 20:54 Nasopharnyx Influenza Type B Antigen Screen - Final Assessment And Plan - Plan Physical Exam General: Alert, In no apparent distress, Oriented x3 HEENT: Atraumatic, Normocephalic, PERRLA, Mucous membr. moist/pink Neck: Supple, JVD not distended, No Thyromegaly Respiratory: Clear to auscultation bilaterally, Normal air movement Cardiovascular: Normal pulses, bradycardia, irregular rhythm, Normal S1 S2 Gastrointestinal: Normal bowel sounds, Soft and benign, No tenderness, No masses Musculoskeletal: No swelling, No erythema, No tenderness Integumentary: No rashes, No significant lesion, No tenderness/swelling, No erythema Neurological: Normal gait, Normal speech, Normal strength at 5/5 x4 extr, S ensation intact Diagnosis Syncope Paresthesia of foot Chronic atrial fibrillation Hypertension Acute kidney injury Plan Syncope/bradycardia/PVC Telemetry is showing bradycardia with heart rate down to 44, PVCs and small pauses. MRI of the brain is unremarkable, no acute disease. Echocardiogram is pending Patient with symptomatic bradycardia Cardiology consult. Chronic atrial fibrillation Patient home medication reviewed and I do not see any rate control medication. Cardiology consult. Essential hypertension Continue current antihypertensive High risk of orthostasis with strict blood pressure control. Target systolic blood pressure of 120-130. Acute kidney injury Continue IV hydration. DVT prophylaxis: Lovenox
--- NOTE | 2023-08-28 18:48 | RAD REPORT ---
EXAM DESCRIPTION: MRI - Brain Wo Cont - 08/28/2023 6:38 pm CLINICAL HISTORY: Brief visual loss, possible stroke COMPARISON: 08/27/[address] TECHNIQUE: Multiplanar multisequence MRI of the brain performed without IV contrast. FINDINGS: No evidence of acute infarct or other diffusion signal abnormality. No evidence of acute intracranial hemorrhage or abnormal extra-axial fluid collections. Mild diffuse parenchymal volume loss. Ventricular caliber otherwise within normal for age. Midline st ructures are unremarkable. Scattered subcortical and deep white matter T2/FLAIR hyperintensities, nonspecific, but suggestive of chronic small vessel ischemic changes. No mass effect or midline shift. Major vascular flow voids are preserved. Mastoid air cells are well aerated. Right maxillary sinus mucous retention cyst. Sequelae of ocular l ens replacements bilaterally. IMPRESSION: No acute intracranial process. No evidence of ventriculomegaly or mass effect. Mild burden of nonspecific white matter foci of T2 hyperintensity, may suggest chronic small vessel i schemic changes
[2023-08-28] MEDS: LOSARTAN/HCTZ 50-12.5 PO SCH (20:41)
[2023-08-28] MEDS: ROSUVASTATIN 10 MG TAB PO SCH (20:41)
[2023-08-29 05:15] LABS: Absolute Lymphocytes (CBC) 1.4 K/uL (0.7-4.9); Hematocrit 40.6 % (39.6-49.0); Lymphocytes % 27.8 % (15.3-44.8); MCV 88.7 fL (80-100); MPV 7.6 fL (7.6-11.3); Platelets 159 thou/uL (152-406); RBC Red Blood Cell Count 4.58 M/uL (4.33-5.43)
[2023-08-29 05:46] LABS: Potassium 3.7 mEq/L (3.5-5.1)
[2023-08-29] MEDS: ENOXAPARIN 40 MG/0.4 ML SQ SCH (08:27)
[2023-08-29] MEDS: ASCORBIC ACID 500 MG TABLET PO SCH (08:27)
--- NOTE | 2023-08-29 12:03 | P.PN ---
Date of Service: 08/29/23 Subjective: Did have a couple of episodes of bradycardia noted on telemetry dipping into the high 30s but this was nonsustained Patient ambulating, feeling similar to baseline ROS: 10 point ROS as noted above, otherwise negative Physical exam GEN: Alert, oriented, NAD HEENT: Normal conjunctiva, sclera anicteric CV: Regular rate and rhythm, no edema Pulm: Nonlabored respirations on room air ABD: Soft, nontender, nondistended MSK: No joint tenderness Integumentary: No rashes Neuro: Normal speech, normal affect Vitals reviewed Problem List Syncope Paresthesia of foot Chronic atrial fibrillation Hypertension Acute kidney injury Plan Syncope/bradycardia/PVC Telemetry is showing bradycardia with heart rate down to 37, PVCs and small pauses. MRI of the brain is unremarkable, no acute disease. Echocardiogram pending Patient with symptomatic bradycardia Cardiology consult. Chronic atrial fibrillation Patient home medication reviewed and I do not see any rate control medication. Continue Xarelto Cardiology consult. Essential hypertension Continue current antihypertensive High risk of orthostasis with strict blood pressure control. Target systolic blood pressure of 120-130. Acute kidney injury Normalized, IV fluids discontinued VTE: Resume Xarelto Code: Full Dispo: 24 to 48 hours Time Spent Managing Pts Care (In Minutes): 35
[2023-08-29] MEDS: LOSARTAN/HCTZ 50-12.5 PO SCH (20:48)
[2023-08-29] MEDS: ROSUVASTATIN 10 MG TAB PO SCH (20:48)
[2023-08-30 06:03] LABS: Potassium 3.5 mEq/L (3.5-5.1)
--- NOTE | 2023-08-30 07:10 | ECHO ---
HEIGHT: 5 ft 10 in WEIGHT: 160 lb 0 oz DATE OF STUDY: 08/29/[address]: Rg Lawson MD 2-DIMENSIONAL: YES M.MODE: YES DOPPLER: YES COLOR FLOW: YES TDS: PORTABLE: YES DEFINITY: BUBBLE STUDY: DIAGNOSIS: STROKE CARDIAC HISTORY: CATHERIZATION: NO SURGERY: NO PROSTHETIC VALVE: NO PACEMAKER: NO MEASUREMENTS (cm) DIASTOLIC (NORMALS) SYSTOLIC (NORMALS) IVSd 1.3 (0.6-1.2) LA Diam 3.2 (1.9-4.0) LVEF 71% LVIDd 4.4 (3.5-5.7) LVIDs 2.6 (2.0-3.5) %FS 40% LVPWd 1.3 (0.6-1.2) Ao Diam 2.4 (2.0-3.7) 2 DIMENSIONAL ASSESSMENT: RIGHT ATRIUM: NORMAL LEFT ATRIUM: ENLARGED RIGHT VENTRICLE: NORMAL LEFT VENTRICLE: NORMAL TRICUSPID VALVE: MILD TRICUSPID REGURGITATION MITRAL VALVE: MILD MITRAL REGURGITATION PULMONIC VALVE: NORMAL AORTIC VALVE: NORMAL PERICARDIAL EFFUSION: NONE AORTIC ROOT: NORMAL LEFT VENTRICULAR WALL MOTION: NORMAL DOPPLER/COLOR FLOW: SEE BELOW COMMENTS: 1. NORMAL LEFT VENTRICULAR EJECTION FRACTION 60-65% 2. NORMAL WALL MOTION 3. MILD MITRAL REGURGITATION 4. MILD TRICUSPID REGURGITATION 5. MILD LEFT ATRIAL ENLARGEMENT TECHNOLOGIST: SANDRINE MCCOLLUM
[2023-08-30] MEDS: ENOXAPARIN 40 MG/0.4 ML SQ SCH (08:07)
[2023-08-30] MEDS: ASCORBIC ACID 500 MG TABLET PO SCH (08:07)
[2023-08-30] MEDS ORDERED: REGADENOSON 0.4 MG/5 ML SYR IV ONE (09:35)
--- NOTE | 2023-08-30 11:49 | RAD REPORT ---
EXAM DESCRIPTION: NM - Rest Stress Cardiac Imaging - 08/30/2023 10:26 am CLINICAL HISTORY: elevated troponin COMPARISON: None. TECHNIQUE: The patient was administered 10.6 mCi of Tc 99m Sestamibi prior to resting SPECT imaging of the heart. The patient was then administered 30.7 mCi of Tc 99m Sestamibi following exercise or ph armacologic stress. Multiplanar SPECT images were reviewed. FINDINGS: Area of diminished radiotracer activity involves the inferior and septal left ventricular myocardium on rest and stress sequences probably attenuation from the diaphragm. The left ventricular ejection fraction equals 52% IMPRESSION: Small to moderate area of apparent fixed perfusion defect involving the inferior and sep isael left ventricular myocardium may indicate infarction or attenuation from overlying soft tissue. No evidence of stress-induced ischemia
[2023-08-30 11:57] VITALS: BP 151/72; TEMP 97.2
--- NOTE | 2023-08-30 12:06 | TREADPHA ---
DX: SYNCOPE, DIAPHORESIS, ELEVATED TROPONIN Date of Study: 08/30/2023 Ht: 5' 10 " Wt: 160 lb 0 oz Consulting Physician: WES MEDICATIONS: VITAMIN C, LOVENOX, HCTZ/ LOSARTAN, CRESTOR HISTORY: 83 YEAR OLD MALE WITH COMPLAINTS OF DIZZINESS/ LIGHTHEADEDNESS, HYPERTENSION. HISTORY OF HYPERTENSION, HIGH CHOLESTEROL, ATRIAL FIBRILLATION PHYSICIAL EXAMINATION: RESTING B.P.: 145/85 RESTING H.R.: 85 RESTING EKG: ATRIAL FIBRILLATION WITH LEFT BUNDLE BRANCH BLOCK PROTOCOL: PHARMACOLOGIC EXERCISE TIME: 3:30 B.P. AT [facility] STRESS: 137/80 IMPRESSION: LEXISCAN INJECTED. CARDIOLITE INJECTED - SEE NUCLEAR MEDICINE REPORT. NO CHEST PAIN. NO SUPRAVENTRICULAR TACHYCARDIA, VENTRICULAR TACHYCARDIA, PREMATURE VENTRICULAR COMPLEXES, PREMATURE ATRIAL COMPLEXES NOTED. COFFEE PROVIDED TO PATIENT. NON-DIAGNOSTIC ELECTROCARDIOGRAM DUE TO BASELINE LEFT BUNDLE BRANCH BLOCK.
--- NOTE | 2023-08-30 13:38 | P.DS ---
Admission Date: 08/29/23 Discharge Date: 08/30/23 Disposition: ROUTINE DISCHARGE Discharge Condition: FAIR Reason for Admission: Lightheadedness Consultations: Cardiology- Dr. Zacarias Procedures: CT head 08/27 FINDINGS: No intracranial hemorrhage, hydrocephalus or extra-axial fluid collection.No areas of brain edema or evidence of midline shift. Cerebral atrophy. Mucous retention cyst right maxillary sinus. Mild left maxillary sinus thickening. The calvarium is intact. IMPRESSION: No acute intracranial abnormality. Brain MRI 08/27 FINDINGS: No evidence of acute infarct or other diffusion signal abnormality. No evidence of acute intracranial hemorrhage or abnormal extra-axial fluid collections. Mild diffuse parenchymal volume loss. Ventricular caliber otherwise within normal for age. Midline structures are unremarkable. Scattered subcortical and deep white matter T2/FLAIR hyperintensities, nonspecific, but suggestive of chronic small vessel ischemic changes. No mass effect or midline shift. Major vascular flow voids are preserved. Mastoid air cells are well aerated. Right maxillary sinus mucous retention cyst. Sequelae of ocular lens replacements bilaterally. IMPRESSION: No acute intracranial process. No evidence of ventriculomegaly or mass effect. Mild burden of nonspecific white matter foci of T2 hyperintensity, may suggest chronic small vessel ischemic changes Carotid doppler 08/28 FINDINGS: The velocity of the right internal carotid artery equals 84 cm/sec. The right ICA/CCA ratio normal The velocity of the left internal carotid artery equals 74 cm/sec. The left ICA/CCA ratio normal Mild plaque left common left internal carotid arteries Calcified plaque right carotid bulb and proximal right internal carotid artery results in an approximately 45% stenosis The vertebral arteries demonstrate antegrade flow IMPRESSION: No evidence of a hemodynamically significant stenosis Echo 08/29 OMMENTS: 1. NORMAL LEFT VENTRICULAR EJECTION FRACTION 60-65% 2. NORMAL WALL MOTION 3. MILD MITRAL REGURGITATION 4. MILD TRICUSPID REGURGITATION 5. MILD LEFT ATRIAL ENLARGEMENT Stress test 08/30 FINDINGS: Area of diminished radiotracer activity involves the inferior and septal left ventricular myocardium on rest and stress sequences probably attenuation from the diaphragm. The left ventricular ejection fraction equals 52% IMPRESSION: Small to moderate area of apparent fixed perfusion defect involving the inferior and septal left ventricular myocardium may indicate infarction or attenuation from overlying soft tissue. No evidence of stress-induced ischemia Brief History of Present Illness: 83-year-old male with a history of hypertension and A-fib on Xarelto was brought to the ED by EMS after he had developed a brief episode of lightheadedness associated with weakness of lower extremities, facial numbness, difficulty remembering words and visual cloudiness. He noted his blood pressure was elevated in the 170s over 100, states that his blood pressure is very controlled at home 120s for systolic and heart rate between 40s to 60s. He had no fall and denied any headache, loss of speech, difficulty swallowing or focal weakness of his extremities. Patient states he was told he has 50% stenosis in both carotids but he cannot remember how long ago the test was done. On arrival to the ED his SBP was 154. CT chest, EKG and troponin were negative. Abnormal lab finding include potassium 3.4, BUN/Cr 20/1.3 and glucose 153. Hospital Course: Problem List Syncope Paresthesia of foot Chronic atrial fibrillation Hypertension Acute kidney injury Patient was admitted to the hospital for near syncopal event. He underwent testing including echocardiogram, MRI of the brain, nuclear medicine stress test, carotid Dopplers which were all without acute findings. He was monitored on telemetry and did have a relatively low resting heart rate in the 40s to 60s which he reports is normal for him. He had no further episodes of near syncope during his hospitalization, he has been ambulatory denies any episodes of chest pain. Stable for discharge this time to follow-up with cardiology on outpatient basis. Vital Signs/Physical Exam: Temp Pulse Resp BP Pulse Ox 97.2 F 64 18 151/72 H 18 L 08/30/23 11:54 08/30/23 11:54 08/30/23 11:54 08/30/23 11:54 08/30/23 11:54 General: Alert, In no apparent distress, Oriented x3 HEENT: Atraumatic, PERRLA Neck: Supple, JVD not distended Respiratory: Clear to auscultation bilaterally, Normal air movement Cardiovascular: Irregular heart rate/rhythm Capillary refill: <2 Seconds Gastrointestinal: Normal bowel sounds, No tenderness Musculoskeletal: No tenderness Integumentary: No rashes Neurological: Normal speech, Normal tone, Normal affect Laboratory Data at Discharge: WBC 5.00 thou/uL (4.3-10.9) 08/29/23 04:50 Hgb 14.1 g/dL (13.6-17.9) 08/29/23 04:50 Hct 40.6 % (39.6-49.0) 08/29/23 04:50 Plt Count 159 thou/uL (152-406) 08/29/23 04:50 PT 15.2 SECONDS (9.5-12.5) H 08/27/23 20:54 INR 1.40 08/27/23 20:54 Sodium 137 mEq/L (136-145) 08/30/23 05:21 Potassium 3.5 mEq/L (3.5-5.1) 08/30/23 05:21 BUN 23 mg/dL (7-18) H 08/30/23 05:21 Creatinine 0.97 mg/dL (0.70-1.30) 08/30/23 05:21 Glucose 96 mg/dL (74-106) 08/30/23 05:21 Phosphorus 4.0 mg/dL (2.5-4.9) 08/28/23 04:49 Magnesium 2.0 mg/dL (1.6-2.4) 08/30/23 05:21 Total Bilirubin 0.6 mg/dL (0.2-1.0) 08/28/23 04:49 AST 19 U/L (15-37) 08/28/23 04:49 ALT 24 U/L (16-61) 08/28/23 04:49 Alkaline Phosphatase 77 U/L (45-117) 08/28/23 04:49 Triglycerides Cancelled 08/28/23 05:00 Cholesterol Cancelled 08/28/23 05:00 HDL Cholesterol Cancelled 08/28/23 05:00 Cholesterol/HDL Ratio Cancelled 08/28/23 05:00 Home Medications: Vit C/Ascorb Sod/Multivit-Min [Emergen-C 500 mg Chewable Tab] 1 tab PO DAILY 09/17/18 Rosuvastatin [Crestor*] 20 mg PO BEDTIME 09/21/18 Losartan/Hydrochlorothiazide [Losartan-Hctz 100-25 mg Tab] 1 each PO BEDTIME 04/25/22 Ascorbic Acid [Vitamin C*] 500 mg PO DAILY 08/28/23 Rivaroxaban [Xarelto*] 20 mg pe PO DAILY 08/28/23 Physician Discharge Instructions: Patient was admitted to the hospital for near syncopal event. He underwent testing including echocardiogram, MRI of the brain, nuclear medicine stress test, carotid Dopplers which were all without acute findings. He was monitored on telemetry and did have a relatively low resting heart rate in the 40s to 60s which he reports is normal for him. He had no further episodes of near syncope during his hospitalization, he has been ambulatory denies any episodes of chest pain. Stable for discharge this time to follow-up with cardiology on outpatient basis. Please follow-up with cardiologyDr. Deann in 1 week Please follow-up with your primary care doctor in the next 1 to 2 weeks Diet: AHA Activity: Fall precautions Followup: NONE,NONE [Primary Care Provider] - 1-2 Weeks Serjio Zacarias MD [ACTIVE - CAN ADMIT] - 2-3 Days Time spent managing pt's care (in minutes): 30
[2023-08-30 15:02] VITALS: O2SAT 100
--- NOTE | 2023-08-31 13:41 | EKG ---
Test Date: 2023-08-27 Test Time: 20:49:19 Production Weigher: PHILLIP MEASUREMENT RESULTS: Intervals: Rate: 82 RI: QRSD: 156 QT: 422 QTc: 493 Bruce: P: RI: QRS: -26 T: 145 INTERPRETIVE STATEMENTS: Atrial fibrillation with premature ventricular or aberrantly conducted complexes Left bundle branch block Abnormal ECG Compared to ECG 04/29/2022 07:22:04 Ventricular premature complex(es) now present Electronically Signed On 08-31-23 13:26:52 PRENATAL NURSE by Serjio Zacarias
--- NOTE | 2023-08-31 13:41 | EKG ---
Test Date: 2023-08-27 Test Time: 20:49:48 Comfort Filler: PHILLIP MEASUREMENT RESULTS: Intervals: Rate: 77 IN: QRSD: 162 QT: 418 QTc: 473 Langford: P: IN: QRS: -27 T: 149 INTERPRETIVE STATEMENTS: Atrial fibrillation Left bundle branch block Abnormal ECG Compared to ECG 08/27/2023 20:49:19 Ventricular premature complex(es) no longer present Electronically Signed On 08-31-23 13:26:51 MILK PROCESSING WORKER by Serjio Zacarias
== END 2023-08-30 14:30 | disposition home or self-care (01) | DRG 312 ==
LOC: ER 20:43 → 4TH 23:08 → UNDOADMOB 08-28 00:07 → 4TH 08-28 00:07 → OBSVTOIN 08-29 19:18
PROVIDERS: ADMIT Internal Medicine; ATTEND Hospitalist
DX: R55 Syncope and collapse (principal); I48.20 Chronic atrial fibrillation, unspecified; N17.9 Acute kidney failure, unspecified; I49.3 Ventricular premature depolarization; I10 Essential (primary) hypertension; E78.5 Hyperlipidemia, unspecified; R20.2 Paresthesia of skin; Z11.52 Encounter for screening for COVID-19; Z79.01 Long term (current) use of anticoagulants; Z79.899 Other long term (current) drug therapy
CPT/HCPCS: 36415; 70450; 70551; 71045; 78452; 80048; 80053; 80061; 83735; 83880; 84100; 84484; 85025; 85610; 87804; 87811; 93005; 93017; 93306; 93880; 93925; 97161; A9500; G0378; J1650; J2785; J7050; J7120